=== PATIENT | male | born 1940 | race Caucasian/White ===

== ENCOUNTER 2016-09-26 14:30 | Outpatient (CLI) | payer MEDICARE, OTHER | END 2016-09-26 14:31 | disposition home or self-care (01) | DX: J20.9 Acute bronchitis, unspecified (principal); R06.09 Other forms of dyspnea ==

== ENCOUNTER 2016-10-15 10:19 | Outpatient (CLI) | payer MEDICARE, OTHER | END 2016-10-15 10:20 | disposition home or self-care (01) | DX: R06.09 Other forms of dyspnea (principal) ==

== ENCOUNTER 2017-03-23 08:17 | Outpatient (CLI) | payer MEDICARE, OTHER ==
[2017-03-23 09:09] LABS: BASOPHILS # (AUTO) 0.1 10^3/uL (0.0-0.1); BASOPHILS % (AUTO) 1.3 %; EOSINOPHILS # (AUTO) 0.2 10^3/uL (0.0-0.7); EOSINOPHILS % (AUTO) 3.6 %; HCT - HEMATOCRIT 29.8 % (42.0-52.0); HGB - HEMOGLOBIN 9.8 g/dL (14.0-18.0); LYMPHOCYTES # (AUTO) 1.5 10^3/uL (1.5-3.5); LYMPHOCYTES % (AUTO) 27.5 %; MEAN CORPUSCULAR HEMOGLOBIN 31.9 pg (27.0-31.0); MEAN CORPUSCULAR HGB CONC 32.8 g/dL (32.0-36.0); MEAN CORPUSCULAR VOLUME 97.4 fL (80.0-94.0); MEAN PLATELET VOLUME 7.6 fL (7.4-11.4); MONOCYTES # (AUTO) 0.5 10^3/uL (0.0-1.0); MONOCYTES % (AUTO) 8.5 %; NEUTROPHILS # (AUTO) 3.1 10^3/uL (1.5-6.6); NEUTROPHILS % (AUTO) 59.1 %; RED BLOOD COUNT 3.05 10^6/uL (4.70-6.10); RED CELL DISTRIBUTION WIDTH 14.2 % (12.0-15.0); UNCORRECTED WHITE BLOOD COUNT 5.3 x10^3/uL; WHITE BLOOD COUNT 5.3 x10^3/uL (4.8-10.8)
[2017-03-23 09:22] LABS: CALCIUM 8.7 mg/dL (8.5-10.3); CREATININE 0.9 mg/dL (0.6-1.2); POTASSIUM 3.7 mmol/L (3.5-5.0)
== END 2017-03-23 08:18 | disposition home or self-care (01) ==
LOC: LAB 08:17
PROVIDERS: ATTEND Family Medicine
DX: M12.851 Other specific arthropathies, not elsewhere classified, right hip (principal)
CPT/HCPCS: 36415; 80048; 85025; 87640

== ENCOUNTER 2017-04-11 19:15 | Emergency (ER) | payer MEDICARE, OTHER ==
[2017-04-11] MEDS ORDERED: SODIUM CHLORIDE 0.9% 1,000 ML IV ONE (19:56)
[2017-04-11 20:14] LABS: BILIRUBIN,URINE NEGATIVE (NEGATIVE); UA w/ MICROSCOPIC CHARGE YES
[2017-04-11 20:19] LABS: WBC,URINE >25 /HPF (0-3)
[2017-04-11 20:20] LABS: UR CULTURE IF IND INDICATED
[2017-04-11] MEDS ORDERED: cefTRIAXone 1 GM VIAL IVP STA (20:25)
--- NOTE | 2017-04-11 20:27 | ED Physician Documentation ---
History of Present Illness - Stated complaint Stated Complaint: MALE - Chief complaint Chief Complaint: UTI - History obtained from History obtained from: Patient, Family - History of Present Illness Timing: Today Pain level max: 0 Pain level now: 0 Improved by: nothing Worsened by: nothing - Additonal information Additional information: feeling tired today. States he urinated dark urine, painful today. Has felt warm at home. He is not currently undergoing any chemotherapy, but did have a recent iron infusion. Has a history of mixed small and large cell lymphoma. Review of Systems Constitutional: denies: Chills, Myalgias Nose: denies: Rhinorrhea / runny nose, Congestion Respiratory: denies: Cough GI: denies: Nausea, Vomiting, Diarrhea Skin: denies: Rash Musculoskeletal: denies: Neck pain, Back pain Neurologic: denies: Focal weakness, Numbness, Headache PD PAST MEDICAL HISTORY - Past Medical History Cardiovascular: Hypertension, High cholesterol, Atrial fibrillation Respiratory: None Neuro: None Endocrine/Autoimmune: None GI: GERD, Diverticulitis : None HEENT: None Psych: None Musculoskeletal: Chronic back pain, Other Derm: None - Past Surgical History Past Surgical History: Yes General: Cholecystectomy Ortho: Arthroscopic surgery Cardiovascular: Other Derm: Skin cancer surgery, Other - Present Medications Home Medications: Ambulatory Orders Medication Instructions Recorded Confirmed Acyclovir 400 mg ORAL DAILY 03/14/16 04/11/17 Rivaroxaban [Xarelto] 20 mg PO DAILY 03/18/16 04/11/17 Amiodarone [Pacerone] 200 mg PO BID tablet 06/05/16 04/03/17 Cephalexin [Keflex] 500 mg PO Q6H #40 capsule 04/11/17 Hydrochlorothiazide 25 mg ORAL DAILY 04/11/17 04/11/17 - Allergies Allergies/Adverse Reactions: Allergies Allergy/AdvReac Type Severity Reaction Status Date / Time morphine AdvReac Hallucinati Verified 04/11/17 19:24 ons - Social History Does the pt smoke?: No Smoking Status: Never smoker Does the pt drink ETOH?: Yes Does the pt have substance abuse?: No - Immunizations Immunizations are current?: No - POLST Patient has POLST: Yes PD ED PE NORMAL - Vitals Vital signs reviewed: Yes - General General: Alert and oriented X 3, No acute distress - HEENT HEENT: Moist mucous membranes, Pharynx benign - Neck Neck: Supple, no meningeal sign - Cardiac Cardiac: RRR - Respiratory Respiratory: No respiratory distress, Clear bilaterally - Abdomen Abdomen: Soft, Non tender, Non distended - Back Back: No CVA TTP, No spinal TTP - Derm Derm: Warm and dry - Neuro Neuro: Alert and oriented X 3 - Psych Psych: Normal mood, Normal affect Results - Vitals Vitals: Vital Signs - 24 hr 04/11/17 04/11/17 04/11/17 19:20 20:38 21:38 Temperature 38.1 C H 37.2 C Heart Rate 77 69 66 Respiratory 18 16 16 Rate Blood Pressure 125/61 108/59 L 119/63 O2 Saturation 96 95 94 Oxygen O2 Source Room air - Labs Labs: Laboratory Tests 04/11/17 04/11/17 04/11/17 20:04 20:23 20:23 WBC 15.5 H RBC 3.35 L Hgb 10.9 L Hct 33.1 L MCV 98.7 H MCH 32.4 H MCHC 32.8 RDW 14.6 Plt Count 240 MPV 8.8 Neut # 12.9 H Lymph # 1.2 L [place] # 1.4 H Eos # 0.0 Baso # 0.1 Absolute Nucleated RBC 0.01 Nucleated RBCs 0.1 Sodium 134 L Potassium 3.9 Chloride 100 L Carbon Dioxide 27 Anion Gap 7.0 BUN 25 H Creatinine 0.9 Estimated GFR (MDRD) 82 L Glucose 121 H Lactic Acid Calcium 8.8 Total Bilirubin 0.8 AST 32 ALT 31 Alkaline Phosphatase 82 Total Protein 6.4 L Albumin 3.5 Globulin 2.9 Albumin/Globulin Ratio 1.2 Lipase 11 L Urine Color BROWN Urine Clarity TURBID Urine pH 7.0 Ur Specific [place] 1.020 Urine Protein 100 H Urine Glucose (UA) NEGATIVE Urine Ketones TRACE Urine Occult Blood LARGE H Urine Nitrite POSITIVE H Urine Bilirubin NEGATIVE Urine Urobilinogen 1 (NORMAL) Ur Leukocyte Esterase LARGE H Urine RBC TNTC H Urine WBC >25 H Ur Squamous Epith Cells RARE Squamous Urine Bacteria Many H Ur Microscopic Review INDICATED Urine Culture Comments INDICATED 04/11/17 20:23 WBC RBC Hgb Hct MCV MCH MCHC RDW Plt Count MPV Neut # Lymph # [place] # Eos # Baso # Absolute Nucleated RBC Nucleated RBCs Sodium Potassium Chloride Carbon Dioxide Anion Gap BUN Creatinine Estimated GFR (MDRD) Glucose Lactic Acid 1.3 Calcium Total Bilirubin AST ALT Alkaline Phosphatase Total Protein Albumin Globulin Albumin/Globulin Ratio Lipase Urine Color Urine Clarity Urine pH Ur Specific [place] Urine Protein Urine Glucose (UA) Urine Ketones Urine Occult Blood Urine Nitrite Urine Bilirubin Urine Urobilinogen Ur Leukocyte Esterase Urine RBC Urine WBC Ur Squamous Epith Cells Urine Bacteria Ur Microscopic Review Urine Culture Comments PD MEDICAL DECISION MAKING - ED course Complexity details: reviewed results, re-evaluated patient, considered differential, d/w patient, d/w family ED course: Patient is a 76-year-old male who presents to the emergency department with dysuria, dark urine and found to have UTI. Given Rocephin IV and will place on oral antibiotics for home. Due to the multiple black box warnings on ciprofloxacin, will avoid this at this time and treated with Keflex. He is well -appearing, nontoxic. Not septic. Patient and are comfortable going home at this time and will return if they worsen. Patient and family counseled regarding signs and symptoms for which I believe and urgent re-evaluation would be necessary. Patient with good understanding of and agreement to plan and is comfortable going home at this time This document was made in part using voice recognition software. While efforts are made to proofread this document, sound alike and grammatical errors may occur. Departure - Departure Disposition: 01 Home, Self Care Clinical Impression: UTI (urinary tract infection) Qualifiers: Urinary tract infection type: acute cystitis Hematuria presence: without hematuria Qualified Code(s): N30.00 - Acute cystitis without hematuria Condition: Good Instructions: ED UTI Cystitis Male Follow-Up: Matt Euceda MD [Primary Care Provider] - Within 3 Days Prescriptions: Cephalexin [Keflex] 500 mg PO Q6H #40 capsule Comments: Take all antibiotics until gone. Return if you worsen. Discharge Date/Time: 04/11/17 21:38
[2017-04-11] MEDS ORDERED: cefTRIAXone 1 GM VIAL ONE (20:31)
[2017-04-11 20:37] LABS: BASOPHILS # (AUTO) 0.1 10^3/uL (0.0-0.1); BASOPHILS % (AUTO) 0.4 %; EOSINOPHILS % (AUTO) 0.2 %; HCT - HEMATOCRIT 33.1 % (42.0-52.0); HGB - HEMOGLOBIN 10.9 g/dL (14.0-18.0); LYMPHOCYTES # (AUTO) 1.2 10^3/uL (1.5-3.5); LYMPHOCYTES % (AUTO) 7.6 %; MEAN CORPUSCULAR HEMOGLOBIN 32.4 pg (27.0-31.0); MEAN CORPUSCULAR HGB CONC 32.8 g/dL (32.0-36.0); MEAN CORPUSCULAR VOLUME 98.7 fL (80.0-94.0); MEAN PLATELET VOLUME 8.8 fL (7.4-11.4); MONOCYTES # (AUTO) 1.4 10^3/uL (0.0-1.0); MONOCYTES % (AUTO) 8.9 %; NEUTROPHILS # (AUTO) 12.9 10^3/uL (1.5-6.6); NEUTROPHILS % (AUTO) 82.9 %; NUCLEATED RED BLOOD CELLS AUTO 0.1 /100WBC; RED BLOOD COUNT 3.35 10^6/uL (4.70-6.10); RED CELL DISTRIBUTION WIDTH 14.6 % (12.0-15.0); UNCORRECTED WHITE BLOOD COUNT 15.5 x10^3/uL; WHITE BLOOD COUNT 15.5 x10^3/uL (4.8-10.8)
[2017-04-11 20:51] LABS: ALBUMIN/GLOBULIN RATIO 1.2 (1.0-2.2); BILIRUBIN,TOTAL 0.8 mg/dL (0.2-1.0); CALCIUM 8.8 mg/dL (8.5-10.3); CREATININE 0.9 mg/dL (0.6-1.2); POTASSIUM 3.9 mmol/L (3.5-5.0); TOTAL PROTEIN 6.4 g/dL (6.7-8.2)
[2017-04-11 21:42] VITALS: BP 119/63
== END 2017-04-11 21:38 | disposition home or self-care (01) ==
LOC: ED 19:15
DX: N30.00 Acute cystitis without hematuria (principal); C83.30 Diffuse large B-cell lymphoma, unspecified site; C83.00 Small cell B-cell lymphoma, unspecified site; I10 Essential (primary) hypertension; E78.00 Pure hypercholesterolemia, unspecified; I48.91 Unspecified atrial fibrillation; K21.9 Gastro-esophageal reflux disease without esophagitis; Z79.01 Long term (current) use of anticoagulants
CPT/HCPCS: 36415; 80053; 81001; 81003; 83605; 83690; 85025; 87077; 87086; 96374; 99283

== ENCOUNTER 2017-05-01 10:00 | Outpatient (CLI) | payer MEDICARE, OTHER | END 2017-05-01 10:01 | disposition home or self-care (01) | LOC: LAB 10:00 | PROVIDERS: ATTEND Family Medicine | DX: Z87.898 Personal history of other specified conditions (principal); D64.9 Anemia, unspecified | CPT/HCPCS: 36415; 84443 ==

== ENCOUNTER 2017-06-07 23:27 | Emergency (ER) | payer MEDICARE, OTHER ==
--- NOTE | 2017-06-08 00:09 | ED Physician Documentation ---
History of Present Illness - Stated complaint Stated Complaint: L ARM PX - Chief complaint Chief Complaint: Ext Problem - History obtained from History obtained from: Patient, Family - History of Present Illness Timing: How many hours ago (1) Pain level max: 0 Pain level now: 0 - Additonal information Additional information: Patient was trying to change his PICC line dressing at home, accidentally cut the end of the catheter off, here to have the PICC line removed. Is scheduled to have a new one placed on Saturday. Review of Systems Constitutional: denies: Fever Cardiac: denies: Chest pain / pressure Skin: denies: Rash PD PAST MEDICAL HISTORY - Past Medical History Cardiovascular: Hypertension, High cholesterol, Atrial fibrillation Respiratory: None Neuro: None Endocrine/Autoimmune: None GI: GERD, Diverticulitis : None HEENT: None Psych: None Musculoskeletal: Chronic back pain, Other Derm: None - Past Surgical History Past Surgical History: Yes General: Cholecystectomy Ortho: Arthroscopic surgery Cardiovascular: Other Derm: Skin cancer surgery, Other - Present Medications Home Medications: Ambulatory Orders Medication Instructions Recorded Confirmed Acyclovir 400 mg ORAL DAILY 03/14/16 04/11/17 Amiodarone [Pacerone] 200 mg PO BID tablet 06/05/16 04/03/17 Tramadol HCl [Tramadol HCl ER] 200 mg PO DAILY 06/07/17 06/07/17 - Allergies Allergies/Adverse Reactions: Allergies Allergy/AdvReac Type Severity Reaction Status Date / Time morphine AdvReac Hallucinati Verified 06/07/17 23:39 ons - Social History Does the pt smoke?: No Smoking Status: Never smoker Does the pt drink ETOH?: Yes Does the pt have substance abuse?: No - Immunizations Immunizations are current?: No - POLST Patient has POLST: Yes PD ED PE NORMAL - Vitals Vital signs reviewed: Yes - General General: Alert and oriented X 3, No acute distress - Derm Derm: Warm and dry - Extremities Extremities: Other (PICC line in place in the left upper extremity) - Neuro Neuro: Alert and oriented X 3 - Psych Psych: Normal mood, Normal affect Results - Vitals Vitals: Vital Signs - 24 hr 06/07/17 06/08/17 23:33 00:17 Temperature 36.5 C Heart Rate 58 L 58 L Respiratory 16 16 Rate Blood Pressure 154/80 H 130/68 O2 Saturation 98 96 Oxygen O2 Source Room air PD MEDICAL DECISION MAKING - ED course Complexity details: re-evaluated patient, considered differential, d/w patient, d/w family ED course: PICC line removed by the nurse. Patient tolerated well. No complications. Will follow up with his doctor on Saturday for replacement of the PICC line. Patient and family counseled regarding signs and symptoms for which I believe and urgent re-evaluation would be necessary. Patient with good understanding of and agreement to plan and is comfortable going home at this time This document was made in part using voice recognition software. While efforts are made to proofread this document, sound alike and grammatical errors may occur. Departure - Departure Disposition: , Self Care Clinical Impression: PIC line (peripherally inserted central catheter) removal Condition: Good Follow-Up: Matt Euecda MD [Primary Care Provider] - As Needed Comments: Follow-up on Saturday as scheduled to have your PICC line replaced. Return if you worsen Your blood pressure was elevated today on check in to the emergency department. This does not mean that you have hypertension, it is a common phenomenon to check into the emergency department and have elevated blood pressure. I recommend that you see your primary care physician within the week to have it rechecked when you're feeling better. Discharge Date/Time: 06/08/17 00:20
[2017-06-08 00:18] VITALS: BP 130/68
== END 2017-06-08 00:20 | disposition home or self-care (01) ==
LOC: ED 23:27
DX: Z45.2 Encounter for adjustment and management of vascular access device (principal); I10 Essential (primary) hypertension
CPT/HCPCS: 99282; 99283

== ENCOUNTER 2017-07-28 22:43 | Outpatient (CLI) | payer MEDICARE, OTHER | END 2017-07-28 22:44 | disposition critical access hospital (66) | LOC: EMS 22:43 | PROVIDERS: ATTEND Surgery | DX: R53.1 Weakness (principal) | CPT/HCPCS: A0425; A0429 ==

== ENCOUNTER 2017-07-28 22:47 | Emergency (ER) | payer MEDICARE, OTHER ==
[2017-07-28] MEDS ORDERED: SODIUM CHLORIDE 0.9% 1,000 ML IV ONE (23:05)
[2017-07-29 00:08] LABS: EOSINOPHILS % (AUTO) 0.4 %; HCT - HEMATOCRIT 37.5 % (42.0-52.0); HGB - HEMOGLOBIN 12.8 g/dL (14.0-18.0); LYMPHOCYTES # (AUTO) 0.1 10^3/uL (1.5-3.5); LYMPHOCYTES % (AUTO) 6.5 %; MEAN CORPUSCULAR HEMOGLOBIN 30.7 pg (27.0-31.0); MEAN CORPUSCULAR HGB CONC 34.1 g/dL (32.0-36.0); MEAN PLATELET VOLUME 8.5 fL (7.4-11.4); MONOCYTES # (AUTO) 0.1 10^3/uL (0.0-1.0); MONOCYTES % (AUTO) 7.5 %; NEUTROPHILS # (AUTO) 0.8 10^3/uL (1.5-6.6); NEUTROPHILS % (AUTO) 85.6 %; NUCLEATED RED BLOOD CELLS AUTO 1.9 /100WBC; RED BLOOD COUNT 4.16 10^6/uL (4.70-6.10); RED CELL DISTRIBUTION WIDTH 17.1 % (12.0-15.0); UNCORRECTED WHITE BLOOD COUNT 0.9 x10^3/uL
[2017-07-29 00:12] LABS: ALBUMIN/GLOBULIN RATIO 1.1 (1.0-2.2); CALCIUM 8.4 mg/dL (8.5-10.3); CREATININE 0.7 mg/dL (0.6-1.2); POTASSIUM 4.2 mmol/L (3.5-5.0); TOTAL PROTEIN 5.7 g/dL (6.7-8.2)
[2017-07-29 00:20] LABS: WHITE BLOOD COUNT 0.9 x10^3/uL (4.8-10.8)
--- NOTE | 2017-07-29 00:28 | ED Physician Documentation ---
History of Present Illness - Stated complaint Stated Complaint: WEAKNESS - Chief complaint Chief Complaint: General - History obtained from History obtained from: Patient, Family - Additonal information Additional information: The patient is a 76-year-old male with a history of esophageal cancer, status post 6 weeks of chemotherapy and radiation therapy, who presents with progressive weakness that became worse tonight. He became too weak to ambulate from the couch to the restroom. He reports associated shortness of breath and lightheadedness. He denies fever, chest pain, cough, nausea, vomiting, or dysuria. His last chemotherapy was 5 days ago, and his last radiation therapy was 3 days ago. In addition to esophageal cancer, his past medical history is significant for recurrent atrial fibrillation. He had previously been anticoagulated with Xarelto, but that was discontinued because of GI bleeding, presumably associated with the esophageal cancer. He reports that for the past year he has not been in atrial fibrillation until today. Review of Systems Constitutional: reports: Fatigue. denies: Fever Ears: denies: Tinnitus/ringing Nose: denies: Congestion Throat: denies: Sore throat Cardiac: denies: Chest pain / pressure, Palpitations Respiratory: reports: Dyspnea (With activity.). denies: Cough GI: denies: Abdominal Pain, Nausea, Vomiting, Diarrhea : denies: Dysuria Skin: reports: Rash (Radiation rash on his back.) Musculoskeletal: denies: Back pain, Extremity pain, Extremity swelling Neurologic: reports: Generalized weakness. denies: Focal weakness, Numbness, Altered mental status, Headache Immunocompromised: reports: Immunocompromised, Chemotherapy PD PAST MEDICAL HISTORY - Past Medical History Past Medical History: Yes Cardiovascular: Hypertension, High cholesterol, Atrial fibrillation Respiratory: None Neuro: None Endocrine/Autoimmune: None GI: GERD, Diverticulitis, Other (Esophageal cancer) : None HEENT: None Psych: None Musculoskeletal: Chronic back pain, Other Derm: None Other Past Medical History: esophogeal CA - Past Surgical History Past Surgical History: Yes General: Cholecystectomy Ortho: Arthroscopic surgery Cardiovascular: Other Derm: Skin cancer surgery, Other - Present Medications Home Medications: Ambulatory Orders Medication Instructions Recorded Confirmed Acyclovir 400 mg ORAL DAILY 03/14/16 07/28/17 Amiodarone [Pacerone] 200 mg PO BID tablet 06/05/16 07/28/17 Tramadol HCl [Tramadol HCl ER] 200 mg PO DAILY 06/07/17 07/28/17 Cholecalciferol (Vitamin D3) 1 tab PO DAILY 07/28/17 07/28/17 [Vitamin D3] Cyanocobalamin (Vitamin B-12) 1 tab PO DAILY 07/28/17 07/28/17 [Vitamin B-12] Dexamethasone 1 tab PO BID 07/28/17 07/28/17 Multivitamin/Iron/Folic Acid 1 tab PO DAILY 07/28/17 07/28/17 [Centrum Adults Tablet] - Allergies Allergies/Adverse Reactions: Allergies Allergy/AdvReac Type Severity Reaction Status Date / Time morphine AdvReac Hallucinati Verified 07/28/17 22:54 ons - Living Situation Living Situation: reports: With spouse/s.o. Living Arrangement: reports: At home - Social History Does the pt smoke?: No Smoking Status: Never smoker Does the pt drink ETOH?: Yes Does the pt have substance abuse?: No - Immunizations Immunizations are current?: No - POLST Patient has POLST: Yes PD ED PE NORMAL - Vitals Vital signs reviewed: Yes (Blood pressure on low end of normal range.) - General General: Alert and oriented X 3, Well developed/nourished - HEENT HEENT: Atraumatic, EOMI, Moist mucous membranes, Pharynx benign - Neck Neck: Supple, no meningeal sign, No adenopathy, No JVD - Cardiac Cardiac: No murmur, Other (Regular rate, irregularly irregular rhythm.) - Respiratory Respiratory: No respiratory distress, Clear bilaterally - Abdomen Abdomen: Soft, Non tender - Back Back: No CVA TTP - Derm Derm: Other (Rash involving the midthoracic back, consistent with radiation therapy.) - Extremities Extremities: No edema, No calf tenderness / cord - Neuro Neuro: Alert and oriented X 3, No motor deficit, No sensory deficit Results - Vitals Vitals: Vital Signs - 24 hr 07/28/17 07/29/17 07/29/17 22:51 00:35 03:30 Temperature 36.8 C Heart Rate 91 90 80 Respiratory 14 18 18 Rate Blood Pressure 93/62 95/57 L 93/62 O2 Saturation 98 98 97 07/29/17 04:30 Temperature 36.5 C Heart Rate 82 Respiratory 18 Rate Blood Pressure 107/69 O2 Saturation 97 Oxygen O2 Source Room air - EKG (time done) 23:13 Rate: Rate (enter#) (99) Rhythm: Atrial fibrillation [place]: Normal Intervals: Prolonged QT QRS: Normal Ischemia: Non specific changes Compare to prior EKG: Unchanged from prior EKG Computer interpretation: Agree with computer - Labs Labs: Laboratory Tests 07/28/17 07/28/17 07/28/17 23:50 23:50 23:50 WBC 0.9 L* RBC 4.16 L Hgb 12.8 L Hct 37.5 L MCV 90.0 MCH 30.7 MCHC 34.1 RDW 17.1 H Plt Count 114 L MPV 8.5 Neut # 0.8 L Lymph # 0.1 L Humphre[place] # 0.1 Eos # 0.0 Baso # 0.0 Absolute Nucleated RBC 0.02 Nucleated RBC % 1.9 Manual Slide Review Indicated Platelet Estimate DECREASED (<130,000) Platelet Morphology NORMAL JUVE RBC Morph Micro Appear NORMAL APPEARANCE Sodium 131 L Potassium 4.2 Chloride 95 L Carbon Dioxide 27 Anion Gap 9.0 BUN 26 H Creatinine 0.7 Estimated GFR (MDRD) 109 Glucose 126 H Lactic Acid 1.3 Calcium 8.4 L Total Bilirubin 1.0 AST 43 H ALT 107 H Alkaline Phosphatase 78 Total Protein 5.7 L Albumin 3.0 L Globulin 2.7 Albumin/Globulin Ratio 1.1 Lipase 12 L PD MEDICAL DECISION MAKING - ED course Complexity details: reviewed old records, reviewed results, re-evaluated patient , considered differential, d/w patient, d/w family, d/w clinical application consultant ED course: The patient's presentation is significant for generalized weakness following chemotherapy and radiation therapy for esophageal cancer. He has dehydration, which is likely result of poor oral intake due to pain when swallowing. In addition he is neutropenic with a white count of 0.9, with a neutrophil count of 0.8. His chemistry panel is significant for an elevated BUN to creatinine ratio, with a BUN of 26, and creatinine 0.7. He has recurrent atrial fibrillation, with a controlled rate in the 80-90 range. Treatment in the emergency department included administration of normal saline 1 L IV bolus, followed by 250 mL/hr. After fluid administration the patient ambulated to the restroom with the assistance of a walker, but was still not able to produce a urine sample. He was then too weak to ambulate the fifteen feet to his room, and required wheelchair assistance. I discussed his condition with Dr. Titus, distribution field engineer for the patient's oncologist , Dr. Novak. He agrees that the patient should be hospitalized. I subsequently discussed his condition with Dr. Hummel, the hospitalist at [facility], and he will accept the patient in transfer. Transfer forms were completed. The patient is being transferred by S ambulance. Departure - Departure Disposition: 02 Transfer Acute Care Hosp Clinical Impression: Dehydration, Atrial fibrillation with controlled ventricular rate Neutropenia Qualifiers: Neutropenia type: secondary to cancer chemotherapy Qualified Code(s): D70.1 - Agranulocytosis secondary to cancer chemotherapy Esophageal cancer Qualifiers: Malignant neoplasm of esophagus location: unspecified location Qualified Code(s ): C15.9 - Malignant neoplasm of esophagus, unspecified Discharge Date/Time: 07/29/17 05:00
[2017-07-29 00:57] LABS: PLATELET ESTIMATE, MANUAL DECREASED (<130,000) (NORMAL); PLATELET MORPHOLOGY NORMAL APP (NORMAL)
[2017-07-29] MEDS ORDERED: SODIUM CHLORIDE 0.9% 1,000 ML IV ONE (02:11)
[2017-07-29 05:10] VITALS: BP 107/69
== END 2017-07-29 05:00 | disposition short-term general hospital (02) ==
LOC: EDUNIT# → SUPCPDRO 22:47 → ED 22:47
DX: E86.0 Dehydration (principal); I48.91 Unspecified atrial fibrillation; D70.1 Agranulocytosis secondary to cancer chemotherapy; C15.9 Malignant neoplasm of esophagus, unspecified; I10 Essential (primary) hypertension; E78.00 Pure hypercholesterolemia, unspecified; Z92.3 Personal history of irradiation
CPT/HCPCS: 36415; 80053; 80306; 81001; 81003; 83605; 83690; 85025; 87086; 93005; 96360; 99284; 99285

== ENCOUNTER 2017-07-29 05:00 | Outpatient (CLI) | payer MEDICARE, OTHER | END 2017-07-29 05:01 | disposition short-term general hospital (02) | LOC: EMS 05:00 | PROVIDERS: ATTEND Surgery | DX: R53.83 Other fatigue (principal); E86.0 Dehydration; D70.9 Neutropenia, unspecified; I48.91 Unspecified atrial fibrillation | CPT/HCPCS: A0425; A0426 ==

== ENCOUNTER 2017-09-16 08:54 | Outpatient (CLI) | payer MEDICARE, OTHER ==
[2017-09-16 09:43] LABS: BASOPHILS % (AUTO) 0.7 %; EOSINOPHILS % (AUTO) 10.2 %; HGB - HEMOGLOBIN 12.7 g/dL (14.0-18.0); LYMPHOCYTES % (AUTO) 22.8 %; MEAN CORPUSCULAR HEMOGLOBIN 34.4 pg (27.0-31.0); MEAN CORPUSCULAR HGB CONC 33.5 g/dL (32.0-36.0); MEAN CORPUSCULAR VOLUME 102.8 fL (80.0-94.0); MEAN PLATELET VOLUME 8.1 fL (7.4-11.4); MONOCYTES % (AUTO) 8.5 %; NEUTROPHILS % (AUTO) 57.8 %; PLT - PLATELET COUNT 189 10^3/uL (130-450); RED BLOOD COUNT 3.69 10^6/uL (4.70-6.10); RED CELL DISTRIBUTION WIDTH 17.8 % (12.0-15.0); WHITE BLOOD COUNT 9.8 x10^3/uL (4.8-10.8)
[2017-09-16 10:07] LABS: ABNORMAL LYMPHS % (MANUAL) 0 %
[2017-09-16 10:10] LABS: BAND NEUTROPHILS % (MANUAL) 14 %; EOSINOPHILS # (MANUAL) 0.9 10^3/uL (0-0.7); LYMPHOCYTES # (MANUAL) 2.1 10^3/uL (1.5-3.5); LYMPHOCYTES % (MANUAL) 21 %; MONOCYTES # (MANUAL) 0.7 10^3/uL (0.0-1.0); MYELOCYTES % (MANUAL) 1 %; NEUTROPHILS # (MANUAL) 6.1 10^3/uL (1.5-6.6); NEUTROPHILS % (MANUAL) 48 %
[2017-09-16 10:12] LABS: DIFFERENTIAL COMMENT MANUAL DIFFERENTIAL; PLATELET ESTIMATE, MANUAL NORMAL (130-450,000) (NORMAL); PLATELET MORPHOLOGY NORMAL APPEARANCE (NORMAL)
== END 2017-09-16 08:55 | disposition home or self-care (01) ==
LOC: LAB 08:54
PROVIDERS: ATTEND Physician Assistant Medical
DX: E61.1 Iron deficiency (principal)
CPT/HCPCS: 36415; 82728; 85025

== ENCOUNTER 2017-09-20 10:47 | Outpatient (CLI) | payer MEDICARE, OTHER | END 2017-09-20 10:48 | disposition critical access hospital (66) | LOC: EMS 10:47 | PROVIDERS: ATTEND Surgery | DX: R06.02 Shortness of breath (principal) | CPT/HCPCS: A0425; A0427 ==

== ENCOUNTER 2017-09-20 11:05 | Emergency (ER) | payer MEDICARE, OTHER ==
--- NOTE | 2017-09-20 12:52 | ED Physician Documentation ---
PD HPI DYSPNEA - Stated complaint Stated Complaint: SOA - Chief complaint Chief Complaint: Resp - History obtained from History obtained from: Patient, Family () - History of Present Illness Timing - onset: Other (He has a remote history of Non Hodgkin lymphoma and in May was diagnosed with throat cancer, he had a 6 week course of radiation and chemotherapy at the [facility] [place] and has been off of those things for the last 2 months. The chemotherapy was complicated by poor oral intake for which he was feeding tube dependent for a while and anemia for which she had a couple blood transfusions. He notes that for the past week he has had progressive increasing shortness of breath on exertion which is not positional and is associated with productive cough. There is no pedal edema. He says he gets short of breath just walking to the bathroom which is only about 20 feet. There is no fever and no chest pain with this. He is anticoagulated for chronic atrial fibrillation on Xarelto.) Review of Systems Ten Systems: 10 systems reviewed and negative Constitutional: reports: Fatigue. denies: Fever, Chills Ears: denies: Ear pain Nose: denies: Rhinorrhea / runny nose, Congestion Cardiac: denies: Chest pain / pressure, Palpitations, Pedal edema, Calf pain Respiratory: reports: Dyspnea, Cough. denies: Hemoptysis, Wheezing PD PAST MEDICAL HISTORY - Past Medical History Past Medical History: Yes Cardiovascular: Hypertension, High cholesterol, Atrial fibrillation Respiratory: None Neuro: None Endocrine/Autoimmune: None GI: GERD, Diverticulitis, Other : None HEENT: None Psych: None Musculoskeletal: Chronic back pain, Other Derm: None - Past Surgical History Past Surgical History: Yes General: Cholecystectomy Ortho: Arthroscopic surgery Cardiovascular: Other Derm: Skin cancer surgery, Other - Present Medications Home Medications: Ambulatory Orders Medication Instructions Recorded Confirmed Acyclovir 400 mg ORAL DAILY 03/14/16 09/20/17 Amiodarone [Pacerone] 200 mg PO BID tablet 06/05/16 09/20/17 Tramadol HCl [Tramadol HCl ER] 200 mg PO DAILY 06/07/17 09/20/17 Cholecalciferol (Vitamin D3) 1 tab PO DAILY 07/28/17 09/20/17 [Vitamin D3] Cyanocobalamin (Vitamin B-12) 1 tab PO DAILY 07/28/17 09/20/17 [Vitamin B-12] Multivitamin/Iron/Folic Acid 1 tab PO DAILY 07/28/17 09/20/17 [Centrum Adults Tablet] Biotin 5,000 mcg PO DAILY 09/20/17 09/20/17 Docusate Sodium 100 mg PO DAILY 09/20/17 09/20/17 Doxycycline Hyclate 100 mg PO BID #14 tablet 09/20/17 Megestrol Acetate 40 mg PO DAILY 09/20/17 09/20/17 Pantoprazole [Protonix] 40 mg PO BID 09/20/17 09/20/17 Rivaroxaban [Xarelto] 20 mg PO BID 09/20/17 09/20/17 - Allergies Allergies/Adverse Reactions: Allergies Allergy/AdvReac Type Severity Reaction Status Date / Time morphine AdvReac Hallucinati Verified 07/28/17 22:54 ons - Social History Does the pt smoke?: No Smoking Status: Never smoker Does the pt drink ETOH?: Yes Does the pt have substance abuse?: No - Immunizations Immunizations are current?: No - POLST Patient has POLST: Yes PD ED PE NORMAL - Vitals Vital signs reviewed: Yes - General General: Alert and oriented X 3, No acute distress - HEENT HEENT: PERRL, EOMI - Neck Neck: Supple, no meningeal sign, No bony TTP - Cardiac Cardiac: RRR, No murmur - Respiratory Respiratory: No respiratory distress, Other (Mild crackles throughout and slightly diminished at the bases without focal findings.) - Abdomen Abdomen: Soft, Non tender - Derm Derm: Normal color, Warm and dry - Extremities Extremities: No edema, No calf tenderness / cord - Neuro Neuro: Alert and oriented X 3, Normal speech - Psych Psych: Normal mood, Normal affect Results - Vitals Vitals: Vital Signs - 24 hr 09/20/17 09/20/17 09/20/17 11:11 13:13 13:14 Temperature 36.5 C Heart Rate 86 83 90 Respiratory 18 20 29 H Rate Blood Pressure 115/82 H 110/75 110/75 O2 Saturation 98 96 96 Oxygen O2 Source Room air - EKG (time done) 1253 Rate: Rate (enter#) (95) Rhythm: Atrial fibrillation [place]: Normal QRS: Normal Ischemia: Normal ST segments Computer interpretation: Agree with computer - Labs Labs: Laboratory Tests 09/20/17 09/20/17 09/20/17 12:40 12:40 12:40 WBC 9.8 RBC 3.72 L Hgb 13.0 L Hct 38.0 L MCV 102.0 H MCH 34.8 H MCHC 34.1 RDW 17.4 H Plt Count 235 MPV 7.8 Sodium 135 Potassium 4.0 Chloride 102 Carbon Dioxide 24 Anion Gap 9.0 BUN 23 H Creatinine 0.7 Estimated GFR (MDRD) 109 Glucose 135 H Calcium 8.5 Total Bilirubin 0.3 AST 44 H ALT 28 Alkaline Phosphatase 95 Troponin I < 0.04 B-Natriuretic Peptide Total Protein 6.7 Albumin 2.7 L Globulin 4.0 Albumin/Globulin Ratio 0.7 L Lipase 17 L 09/20/17 12:50 WBC RBC Hgb Hct MCV MCH MCHC RDW Plt Count MPV Sodium Potassium Chloride Carbon Dioxide Anion Gap BUN Creatinine Estimated GFR (MDRD) Glucose Calcium Total Bilirubin AST ALT Alkaline Phosphatase Troponin I B-Natriuretic Peptide 89 Total Protein Albumin Globulin Albumin/Globulin Ratio Lipase - Rads (name of study) 2v chest Radiology: EMP read contemporaneously (Perihilar edema with right middle lobe infiltrate) PD MEDICAL DECISION MAKING - ED course ED course: 76-year-old gentleman with recent but not active chemotherapy presents with breathlessness and productive cough. PE is unlikely given the clinical circumstances anticoagulated status. There is no evidence of acute heart issue or heart failure, he does have evidence of pneumonia. Doxycycline chosen because of lack of interactions with amiodarone. Departure - Departure Disposition: 01 Home, Self Care Clinical Impression: Pneumonia Qualifiers: Pneumonia type: due to unspecified organism Laterality: right Lung location: middle lobe of lung Qualified Code(s): J18.1 - Lobar pneumonia, unspecified organism Condition: Good Record reviewed to determine appropriate education?: Yes Instructions: Pneumonia Dc Prescriptions: Doxycycline Hyclate 100 mg PO BID #14 tablet Comments: Do not take the antibiotic within 1 hour of any vitamin supplements. Especially calcium supplements. Call your doctor to arrange a follow-up appointment, make the next available appointment. In the interim, return anytime if worse or if new symptoms develop.
[2017-09-20 13:00] LABS: ALBUMIN 2.7 g/dL (3.2-5.5); ALBUMIN/GLOBULIN RATIO 0.7 (1.0-2.2); BILIRUBIN,TOTAL 0.3 mg/dL (0.2-1.0); CALCIUM 8.5 mg/dL (8.5-10.3); CREATININE 0.7 mg/dL (0.6-1.2); TOTAL PROTEIN 6.7 g/dL (6.7-8.2)
[2017-09-20 13:19] LABS: BASOPHILS % (AUTO) 0.6 %; EOSINOPHILS % (AUTO) 8.5 %; LYMPHOCYTES % (AUTO) 12.3 %; MEAN CORPUSCULAR HEMOGLOBIN 34.8 pg (27.0-31.0); MEAN CORPUSCULAR HGB CONC 34.1 g/dL (32.0-36.0); MEAN PLATELET VOLUME 7.8 fL (7.4-11.4); MONOCYTES % (AUTO) 8.6 %; PLT - PLATELET COUNT 235 10^3/uL (130-450); RED BLOOD COUNT 3.72 10^6/uL (4.70-6.10); RED CELL DISTRIBUTION WIDTH 17.4 % (12.0-15.0); WHITE BLOOD COUNT 9.8 x10^3/uL (4.8-10.8)
[2017-09-20 13:23] LABS: ABNORMAL LYMPHS % (MANUAL) 0 %; BAND NEUTROPHILS % (MANUAL) 0 %
--- NOTE | 2017-09-20 13:41 | XRAY Report ---
EXAM: CHEST RADIOGRAPHY EXAM DATE: 09/20/2017 01:06 PM. CLINICAL HISTORY: Dyspnea. COMPARISON: 06/04/2016. TECHNIQUE: 2 views. FINDINGS: Lungs/Pleura: Lung volumes are decreased. There are increased bilateral perihilar interstitial densit ies. The right cardiac border is obscured. There is developing density in the right middle lobe on th e lateral image. No pleural effusion. Mediastinum: Heart size is within normal limits. Trachea is midline. Other: None. IMPRESSION: 1. Developing perihilar interstitial densities with a focal process in the right middle lobe. Possibl e perihilar edema and/or right middle lobe pneumonia with airway thickening. [facility] Referring Provider Line: [phone] SITE ID: [id number]
[2017-09-20 13:46] LABS: BASOPHILS # (MANUAL) 0.1 10^3/uL (0-0.1); BASOPHILS % (MANUAL) 1 %; EOSINOPHILS # (MANUAL) 0.1 10^3/uL (0-0.7); LYMPHOCYTES # (MANUAL) 1.9 10^3/uL (1.5-3.5); LYMPHOCYTES % (MANUAL) 19 %; MONOCYTES # (MANUAL) 0.6 10^3/uL (0.0-1.0); NEUTROPHILS # (MANUAL) 7.1 10^3/uL (1.5-6.6); NEUTROPHILS % (MANUAL) 72 %
[2017-09-20 13:48] LABS: MYELOCYTES % (MANUAL) 1 %
[2017-09-20] MEDS ORDERED: DOXYCYCLINE 100 MG TABLET PO STA (14:00)
[2017-09-20 14:08] LABS: DIFFERENTIAL COMMENT MANUAL DIFFERENTIAL; PLATELET ESTIMATE, MANUAL NORMAL (130-450,000) (NORMAL); RBC MORPHOLOGY (MULTIPLE) 1+ ANISOCYTOSIS (NORMAL)
[2017-09-20 14:14] VITALS: BP 116/77
== END 2017-09-20 14:28 | disposition home or self-care (01) ==
LOC: EDUNIT# → ED 11:05
DX: J18.9 Pneumonia, unspecified organism (principal); C14.0 Malignant neoplasm of pharynx, unspecified; Z85.72 Personal history of non-Hodgkin lymphomas; Z86.2 Personal history of diseases of the blood and blood-forming organs and certain disorders involving the immune mechanism; I48.91 Unspecified atrial fibrillation; Z79.01 Long term (current) use of anticoagulants; R94.31 Abnormal electrocardiogram [ECG] [EKG]; I10 Essential (primary) hypertension; E78.00 Pure hypercholesterolemia, unspecified; K21.9 Gastro-esophageal reflux disease without esophagitis
CPT/HCPCS: 36415; 71046; 80053; 83690; 83880; 84484; 85025; 93005; 99283; 99284; A9270

== ENCOUNTER 2017-10-14 08:00 | Outpatient (CLI) | payer MEDICARE, OTHER ==
[2017-10-14 13:51] LABS: BASOPHILS # (AUTO) 0.1 10^3/uL (0.0-0.1); BASOPHILS % (AUTO) 1.3 %; EOSINOPHILS # (AUTO) 0.2 10^3/uL (0.0-0.7); EOSINOPHILS % (AUTO) 2.4 %; HGB - HEMOGLOBIN 13.1 g/dL (14.0-18.0); LYMPHOCYTES # (AUTO) 1.1 10^3/uL (1.5-3.5); MEAN CORPUSCULAR HEMOGLOBIN 34.8 pg (27.0-31.0); MEAN CORPUSCULAR HGB CONC 34.7 g/dL (32.0-36.0); MEAN CORPUSCULAR VOLUME 100.1 fL (80.0-94.0); MONOCYTES # (AUTO) 0.7 10^3/uL (0.0-1.0); MONOCYTES % (AUTO) 9.9 %; NEUTROPHILS # (AUTO) 5.5 10^3/uL (1.5-6.6); NEUTROPHILS % (AUTO) 72.4 %; PLT - PLATELET COUNT 168 10^3/uL (130-450); RED BLOOD COUNT 3.78 10^6/uL (4.70-6.10); RED CELL DISTRIBUTION WIDTH 17.9 % (12.0-15.0); WHITE BLOOD COUNT 7.5 x10^3/uL (4.8-10.8)
== END 2017-10-14 08:01 | disposition home or self-care (01) ==
LOC: LAB.R 08:00
PROVIDERS: ATTEND Family Medicine
DX: C15.9 Malignant neoplasm of esophagus, unspecified (principal); Z87.898 Personal history of other specified conditions
CPT/HCPCS: 36415; 85025

== ENCOUNTER 2017-10-25 12:55 | Outpatient (CLI) | payer MEDICARE, OTHER | END 2017-10-25 12:56 | disposition home or self-care (01) | LOC: DI 12:55 | PROVIDERS: ATTEND Physician Assistant Medical | DX: R06.00 Dyspnea, unspecified (principal); I48.91 Unspecified atrial fibrillation; I51.7 Cardiomegaly | CPT/HCPCS: 93306 ==

== ENCOUNTER 2017-10-27 13:11 | Outpatient (CLI) | payer MEDICARE, OTHER ==
[2017-10-27] MEDS ORDERED: ALBUTEROL NEB 2.5 MG/3 ML INH ONE (15:00)
== END 2017-10-27 13:12 | disposition home or self-care (01) ==
LOC: RT 13:11
PROVIDERS: ATTEND Physician Assistant Medical
DX: R06.00 Dyspnea, unspecified (principal)
CPT/HCPCS: 94060; 94729; J7613

== ENCOUNTER 2017-11-27 14:54 | Outpatient (CLI) | payer MEDICARE, OTHER ==
--- NOTE | 2017-11-27 17:17 | CT Report ---
CHEST CT WITHOUT CONTRAST: 11/27/2017 COMPARISON EXAM: Chest CT 04/08/2017. INDICATION: Shortness of breath. Scarring of the lungs. TECHNIQUE: Noncontrast axial imaging of the chest with coronal and sagittal reformats. MIP lung reformats. In accordance with CT protocol optimization, one or more of the following dose reduction techniques were utilized for this exam: Automated exposure control, adjustment of mA and/or KV based on patient size, or use of iterative reconstructive technique. FINDINGS: There is increased band-like scarring of the right lower lobe as compared to the prior exam. There is now mild atelectasis and/or scar of the left lower lobe. There is a 4 mm semisolid nodule of the left lower lobe, axial image 32. Stable finding. No mediastinal, hilar, or axillary adenopathy. Cholecystectomy is noted. Limited noncontrast upper abdomen appears otherwise unremarkable. There are calcifications of the coronary arteries. No bone lesions. IMPRESSION: 1. SOMEWHAT INCREASED SCARRING OF THE LOWER LOBES. 2. LEFT LOWER LOBE 4 MM SEMISOLID NODULE IS A STABLE FINDING COMPARED TO 2016. ADDITIONAL FOLLOWUP IS WARRANTED IN A HIGH RISK PATIENT. TD: 11/27/2017 17:16 ISAAC
== END 2017-11-27 14:55 | disposition home or self-care (01) ==
LOC: DI 14:54
PROVIDERS: ATTEND Internal Medicine Pulmonary Disease
DX: R06.02 Shortness of breath (principal); J98.4 Other disorders of lung
CPT/HCPCS: 71250

== ENCOUNTER 2017-11-30 13:27 | Outpatient (CLI) | payer MEDICARE, OTHER | END 2017-11-30 13:28 | disposition home or self-care (01) | LOC: RT 13:27 | PROVIDERS: ATTEND Internal Medicine Pulmonary Disease | DX: Z01.811 Encounter for preprocedural respiratory examination (principal); C15.5 Malignant neoplasm of lower third of esophagus | CPT/HCPCS: 94010 ==

== ENCOUNTER 2017-12-07 10:57 | Outpatient (CLI) | payer MEDICARE, OTHER ==
--- NOTE | 2017-12-07 11:32 | XRAY Report ---
EXAM: LUMBOSACRAL SPINE RADIOGRAPHY EXAM DATE: 12/07/2017 11:15 AM. CLINICAL HISTORY: BACK PAIN LUMBAR. COMPARISONS: None. TECHNIQUE: 3 views. FINDINGS: Left hip prosthesis and cholecystectomy are noted. Bones: Five [id number]-pwysdza lumbar vertebral bodies are present. No fractures or bone lesions. There is mild loss of L1 and L2 vertebral body height. There are multilevel small to moderate anterio r osteophytes. There is moderate narrowing at L1-L2, L2-L3 and L3-L4. There is moderate to severe disk space narrowi ng at L4-L5 and L5-S1. Grade 1 anterolisthesis of L5 upon S1 is favored to be degenerative. Facets: Moderate degenerative changes. Sacroiliac Joints: Unremarkable. Soft Tissues: The visualized bowel gas pattern is normal. IMPRESSION: Moderate to severe lumbar spondylosis [facility] Referring Provider Line: [phone] SITE ID: [id number]
== END 2017-12-07 10:58 | disposition home or self-care (01) ==
LOC: DI 10:57
PROVIDERS: ATTEND Family Medicine
DX: M47.896 Other spondylosis, lumbar region (principal); M43.17 Spondylolisthesis, lumbosacral region
CPT/HCPCS: 72100

== ENCOUNTER 2017-12-12 10:16 | Emergency (ER) | payer MEDICARE, OTHER ==
[2017-12-12 11:00] LABS: BASOPHILS % (AUTO) 0.2 %; EOSINOPHILS % (AUTO) 0.5 %; HGB - HEMOGLOBIN 10.2 g/dL (14.0-18.0); LYMPHOCYTES # (AUTO) 0.8 10^3/uL (1.5-3.5); LYMPHOCYTES % (AUTO) 8.3 %; MEAN CORPUSCULAR HEMOGLOBIN 36.9 pg (27.0-31.0); MEAN CORPUSCULAR HGB CONC 33.7 g/dL (32.0-36.0); MEAN CORPUSCULAR VOLUME 109.6 fL (80.0-94.0); MEAN PLATELET VOLUME 7.8 fL (7.4-11.4); MONOCYTES # (AUTO) 0.7 10^3/uL (0.0-1.0); MONOCYTES % (AUTO) 7.4 %; NEUTROPHILS % (AUTO) 83.6 %; PLT - PLATELET COUNT 180 10^3/uL (130-450); RED BLOOD COUNT 2.75 10^6/uL (4.70-6.10); RED CELL DISTRIBUTION WIDTH 16.1 % (12.0-15.0); WHITE BLOOD COUNT 9.6 x10^3/uL (4.8-10.8)
[2017-12-12 11:08] LABS: ALBUMIN 3.3 g/dL (3.2-5.5); ALBUMIN/GLOBULIN RATIO 1.4 (1.0-2.2); BILIRUBIN,TOTAL 0.6 mg/dL (0.2-1.0); CALCIUM 8.7 mg/dL (8.5-10.3); TOTAL PROTEIN 5.7 g/dL (6.7-8.2)
--- NOTE | 2017-12-12 11:23 | XRAY Report ---
EXAM: CHEST RADIOGRAPHY EXAM DATE: 12/12/2017 10:55 AM. CLINICAL HISTORY: Shortness of breath. 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 TECHNIQUE: 1 view. FINDINGS: Lungs/Pleura: Relatively low lung volumes. Similar right infrahilar reticulation compatible with scar ring. No consolidation or vascular congestion. No pneumothorax or pleural effusion. Mediastinum: Stable cardiomediastinal silhouette. Other: Chronic right rib fracture deformities. No acute fracture evident. IMPRESSION: 1. No acute cardiopulmonary findings identified. 2. Persistent low lung volumes with similar right infrahilar scarring. [facility] Referring Provider Line: [phone] SITE ID: [id number]
--- NOTE | 2017-12-12 11:44 | ED Physician Documentation ---
History of Present Illness - Stated complaint Stated Complaint: DIFF BREATHING - Chief complaint Chief Complaint: General - Additonal information Additional information: hx from pt 77 male known esophageal cancer s/p radiation and chemo last fall post rad and chemo he suffered from sig diff with PO and dehydration and weakness req several re-admits also developed a decub now home, has home health, decub better after wound care has transferred his cancer care from [facility] to [place] also has a hx of a fib on xarelto - recently taken of amiodarone 2/2 lung issues , not on any rate control meds at this time and has been SOA recently and so was put on prednsione which was increased to 60 QD on 12/02 and also given an albuterol MDI 12/02 which was helping was doing fairly well until several days ago when he acutely became unable to do his daily exercises, soa with minimal exertion, diffuse swelling of face chest abd and ext, sig nearly 30 lb wt gain, night sweats no fever no sig cough no NVD no blood in BM Review of Systems Constitutional: reports: Fatigue, Sweats. denies: Fever, Chills, Weight Loss ( wt gain 30 lbs) Respiratory: reports: Dyspnea. denies: Cough (minimal) GI: reports: Abdominal Swelling. denies: Nausea, Vomiting, Diarrhea, Bloody / black stool : denies: Dysuria Skin: denies: Rash Musculoskeletal: reports: Extremity swelling Neurologic: reports: Generalized weakness Endocrine: reports: Weight gain PD PAST MEDICAL HISTORY - Past Medical History Cardiovascular: Hypertension, High cholesterol, Atrial fibrillation Respiratory: None Neuro: None Endocrine/Autoimmune: None GI: GERD, Diverticulitis, Other : None HEENT: None Psych: None Musculoskeletal: Chronic back pain, Other Derm: None - Past Surgical History Past Surgical History: Yes General: Cholecystectomy Ortho: Arthroscopic surgery Cardiovascular: Other Derm: Skin cancer surgery, Other - Present Medications Home Medications: Ambulatory Orders Medication Instructions Recorded Confirmed Acyclovir 400 mg PO DAILY 12/12/17 Baclofen 20 mg PO BID 12/12/17 Biotin 5,000 mcg PO DAILY 12/12/17 Ceramides 1,3,6-11 [Cerave] 12/12/17 Cyanocobalamin (Vitamin B-12) 5,000 mcg PO DAILY 12/12/17 [Vitamin B-12] Fluticasone [Flonase] 1 spray NS DAILY 12/12/17 Metoprolol Tartrate [Lopressor] 12.5 mg PO BID #14 tablet 12/12/17 Multivitamin/Iron/Folic Acid 1 tab PO DAILY 12/12/17 [Centrum Adults Tablet] Pantoprazole [Protonix] 40 mg PO DAILY 12/12/17 Psyllium Husk [Metamucil] 3 tsp PO DAILY 12/12/17 Rivaroxaban [Xarelto] 20 mg PO DAILY 12/12/17 Sulfamethox/Trimeth 800/160 1 12/12/17 [Bactrim Ds] predniSONE [Prednisone] 60 mg PO DAILY 12/12/17 traMADol [Ultram] 50 mg PO QID 12/12/17 - Allergies Allergies/Adverse Reactions: Allergies Allergy/AdvReac Type Severity Reaction Status Date / Time morphine AdvReac Hallucinati Verified 07/28/17 22:54 ons - Social History Does the pt smoke?: No Smoking Status: Never smoker Does the pt drink ETOH?: Yes Does the pt have substance abuse?: No - Immunizations Immunizations are current?: No - POLST Patient has POLST: Yes PD ED PE NORMAL - Vitals Vital signs reviewed: Yes - General General: Alert and oriented X 3 - HEENT HEENT: Atraumatic - Neck Neck: Supple, no meningeal sign - Cardiac Cardiac: No: RRR (tachy) - Respiratory Respiratory: Other (wheezing, R > ) - Abdomen Abdomen: Soft, Non tender, Other (distended) - Rectal Rectal: Other (flaccid hemorrhoid, soft brownish BM, strongly occult blood + QC passed) - Derm Derm: No rash, Other (decub completely healed) - Extremities Extremities: Other (mod nirav edema) - Neuro Neuro: Alert and oriented X 3 Results - Vitals Vitals: Vital Signs - 24 hr 12/12/17 12/12/17 12/12/17 10:28 10:49 12:22 Temperature 35.6 C L Heart Rate 125 H 106 H Respiratory 22 17 Rate Blood Pressure 132/86 H 121/77 O2 Saturation 97 98 12/12/17 12/12/17 12/12/17 13:37 15:07 16:34 Temperature 36.8 C Heart Rate 92 110 H 92 Respiratory 16 16 16 Rate Blood Pressure 134/52 H 124/89 H 128/90 H O2 Saturation 100 100 95 12/12/17 12/12/17 12/12/17 18:03 18:44 19:44 Temperature 37.1 C Heart Rate 98 88 59 L Respiratory 20 20 16 Rate Blood Pressure 125/105 H 115/64 109/87 H O2 Saturation 98 97 97 Oxygen O2 Source Room air - EKG (time done) 1028 Rate: Rate (enter#) (112) Rhythm: Atrial fibrillation Ischemia: Non specific changes - Labs Labs: Laboratory Tests 12/12/17 12/12/17 12/12/17 10:40 10:40 10:40 WBC 9.6 RBC 2.75 L Hgb 10.2 L Hct 30.2 L MCV 109.6 H MCH 36.9 H MCHC 33.7 RDW 16.1 H Plt Count 180 MPV 7.8 Neut # 8.0 H Lymph # 0.8 L [place] # 0.7 Eos # 0.0 Baso # 0.0 Absolute Nucleated RBC 0.03 Nucleated RBC % 0.3 Manual Slide Review Indicated RBC Morph Micro Appear 1+ POLYCHROMASIA Sodium 136 Potassium 3.9 Chloride 104 Carbon Dioxide 24 Anion Gap 8.0 BUN 35 H Creatinine 1.0 Estimated GFR (MDRD) 72 L Glucose 152 H Lactic Acid Calcium 8.7 Total Bilirubin 0.6 AST 29 ALT 31 Alkaline Phosphatase 65 Troponin I 0.04 B-Natriuretic Peptide Total Protein 5.7 L Albumin 3.3 Globulin 2.4 Albumin/Globulin Ratio 1.4 Lipase 14 L Urine Color Urine Clarity Urine pH Ur Specific [place] Urine Protein Urine Glucose (UA) Urine Ketones Urine Occult Blood Urine Nitrite Urine Bilirubin Urine Urobilinogen Ur Leukocyte Esterase Ur Microscopic Review Urine Culture Comments 12/12/17 12/12/17 12/12/17 10:40 11:03 13:57 WBC RBC Hgb Hct MCV MCH MCHC RDW Plt Count MPV Neut # Lymph # [place] # Eos # Baso # Absolute Nucleated RBC Nucleated RBC % Manual Slide Review RBC Morph Micro Appear Sodium Potassium Chloride Carbon Dioxide Anion Gap BUN Creatinine Estimated GFR (MDRD) Glucose Lactic Acid 2.3 H Calcium Total Bilirubin AST ALT Alkaline Phosphatase Troponin I B-Natriuretic Peptide 101 H Total Protein Albumin Globulin Albumin/Globulin Ratio Lipase Urine Color YELLOW Urine Clarity CLEAR Urine pH 5.0 Ur Specific [place] 1.025 Urine Protein NEGATIVE Urine Glucose (UA) NEGATIVE Urine Ketones NEGATIVE Urine Occult Blood NEGATIVE Urine Nitrite NEGATIVE Urine Bilirubin NEGATIVE Urine Urobilinogen 0.2 (NORMAL) Ur Leukocyte Esterase NEGATIVE Ur Microscopic Review NOT INDICATED Urine Culture Comments NOT INDICATED - Rads (name of study) CTA chest Radiology: See rad report (no PE, fibrosis, unchnaged 4 mm nodule, no sig effusion, no pna) CTAP Radiology: See rad report (no sig abnormality) echo Radiology: See rad report (a fib EF 55-60%) PD MEDICAL DECISION MAKING - ED course ED course: extremely complicated pt with numerous comorbidities (esophageal cancer, deconditoning, a fib on xarelto but not rate control, 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, chronic anemia) receiving/received acre at numerous facilities including [facility] and presently under the care of a team of 6 physicians (surgery pulmonary cardio rehab oncology PMD) to ED with SOA and exercise intol and sig new edema arrived tachy but afebrile could be 2/2 no rate control meds or could be 2/2 another process such as PE or infection work up including labs UA CXR and CT chest abd pelvis does not reveal a source of infection - no pna no UTI, no indwelling line port etc, decub improving, does have an elevated lactate ordered 2/2 HR but without a source of infection sig is unclear CT scans do not show a PE just fibrosis and no ascites on CT AP anemia is not new, little worse than recently - prompted a rectal exam though which is strongly heme occult, so i fear pt is bleeding from his cancer again which may be contributing to his sx and with his comorbidities a Hgb of 10 may cause sig sx edema could be 2/2 the steroids recently rx for his pulm status - does not seem he in CHF no edema on CXR and neg BNP after seeing neg BNP and no CHF on CXR did give a L of IVF as well a dose of BB for afib RVR with improved VS - did not give full 30cc/kg as I am not convinced this pt has an infectious problem at all right now echo fine - EF 55% will update pt and on results and touch base with his specialists called pts CT surgeon DR Costa at [phone] - not available but temporary receptionist stated she would page him. 0 called again - got after hours answering service [address] surgery called back and I explained all of above to her - options are basically to transfer to [place] or dc home, admitting to [facility] unlikely to be beneficial other than to monitor HR and recheck H/H - of he has increasing esophageal bleeding he would need to go to [place], if not stable for surgery perhaps IR for vessel embolization? at this point he is much improved - I think the tachycardia was RVR 2/2 no rate control for his a fib - HR controlled with BB, not hypotensive esoph cancer presumably bleeding - hgb 10 and occult blood + but not vomiting blood or black stools so likely slow bleed, not needing transfusion or emergent intervention at this time though admittedly hard to predict what bleeding will do in the future, needs to be on xarelto for a fib stroke prevention, for now would dc and have pt speak with his earth science technical officer in the AM about whether to dc xarelto for now, pt has BP cuff at home and advised to record HR and BP to help adjust metoprolol dose for edema pt is not in CHF and I think edema is due to the steroids, steroids are not helping his breathing anyway per pt so would dc that, would not give diuretic as not in CHF, am also starting lopressor and don't want to drop his BP , edema should resolve with dc steroids, should continue MDI as that did seem to help in the ER BP echo was OK, pt has stress test next Saturday for preop and would keep that appt for tonight think pt is safe to go home - needs PMD to order rpt H/H tomorrow and needs to monitor BP and HR at home and discuss with cardio, if worse should come back to ED, is esoph bleeding gets heavy would give TXA and transfer Departure - Departure Disposition: Home, Self Care Clinical Impression: Atrial fibrillation with RVR, Pulmonary fibrosis Esophageal cancer Qualifiers: Malignant neoplasm of esophagus location: unspecified location Qualified Code(s ): C15.9 - Malignant neoplasm of esophagus, unspecified GI bleed Qualifiers: GI bleed type/associated pathology: unspecified gastrointestinal hemorrhage type Qualified Code(s): K92.2 - Gastrointestinal hemorrhage, unspecified Edema Qualifiers: Edema type: generalized Qualified Code(s): R60.1 - Generalized edema Condition: Good Follow-Up: Sindhu Cleary PA-C [Primary Care Provider] - Prescriptions: Metoprolol Tartrate [Lopressor] 12.5 mg PO BID #14 tablet Comments: You have numerous problems going on 1) The esophageal cancer seems to be bleeding again - your hemoglobin is down to 10, you were at 13 in September. Most people do not need transfusion until the hemoglobin is 8 or less. I think the bleeding is slow - the stool was brown not frankly black or bloody and your blood pressure is fine. Unfortunately you also need to be on xarelto for your atrial fibrillation. You made need to stop the xarelto but you should talk to your earth science technical officer and esophageal surgeon tomorrow to determine that. At any point this bleeding could become heavier - if you feel worse (more weak, more short of air or vomit blood or pass bloody or black BMs) come straight back to the ER to have transfer to [facility] arranged. In the case of heavy bleeding, there is a medication called TXA that can be given to try and stop the bleeding until you can get to [place] 2) Your atrial fibrillation rate is out of control because you have stopped the amiodarone. In the ER we gave you a medication called metoprolol which worked very well for you and so i have prescribed an oral version. Please monitor your blood pressure and heart rate and keep a log so your PMD and/or earth science technical officer can decide if this is the right medication and dose for your atrial fibrillation. Also remember to ask your earth science technical officer and surgeon if you should stop the xarelto 3) You are short of breath because of your pulmonary fibrosis. I think the edema is due to the steroids.The work up today did not show you to have a lung infection, or congestive heart failure, or renal failure to cause the swelling. Since the steroids do not seem to be helping your breathing I would suggest stopping that medication for now. You can continue the inhaler. You should ask the special education instructor about stopping the prophylactic antibiotic For tonight I think it is OK for you to go home. 1) You need to have your PMD order a repeat blood count tomorrow (hopefully the home health care nurse can draw this for you at the house) 2) You should take the metoprolol to keep your heart rate down - and keep a log of your blood pressures and heart rates 3) Hold the xarelto for today, but call your earth science technical officer in the morning to discuss whether or not to continue 4) Stop the steroids. You can continue the inhaler 5) Call your surgeon Dr Costa and your earth science technical officer Dr Armstrong and your special education instructor Dr Pierson tomorrow to let them know the results of your tests and to determine the plan going forward 6) Return to the ER right away if worse in any way 7) I didn't find any infection but we still have several cultures running and the ER staff will call you if any of them are positive and need treatment
[2017-12-12] MEDS ORDERED: METOPROLOL 5 MG/5 ML VIAL IVP STA ×2 (12:14→15:31)
[2017-12-12] MEDS ORDERED: SODIUM CHLORIDE 0.9% 1,000 ML IV ONE (12:14)
[2017-12-12] MEDS ORDERED: IOPAMIDOL-300 100 ML VIAL ONE (12:47)
[2017-12-12] MEDS ORDERED: IOPAMIDOL-300 100 ML VIAL IVP ONE (13:35)
--- NOTE | 2017-12-12 14:05 | CT Preliminary Report ---
Exam: CT CHEST ANGIO (PE) IMPRESSION: 1. Negative for acute pulmonary embolism. 2. New trace left pleural effusion. 3. Lungs appear unchanged. Region of scarring in the medial right lower lobe appears without signific ant change. [facility] SITE ID: [id number]
--- NOTE | 2017-12-12 14:06 | CT Report ---
EXAM: CT ANGIOGRAM CHEST EXAM DATE: 12/12/2017 01:35 PM. CLINICAL HISTORY: Known cancer, dec mobility, soa tachy. COMPARISON: 11/27/2017. TECHNIQUE: Routine helical imaging was performed through the chest in the pulmonary arterial phase. I V Contrast: 100 cc Isovue-300 IV. Reconstructions: Coronal 3-D MIP reconstructions.Sagittal and coron al. In accordance with CT protocol optimization, one or more of the following dose reduction techniques w ere utilized for this exam: automated exposure control, adjustment of mA and/or KV based on patient s ize, or use of iterative reconstructive technique. FINDINGS: Pulmonary Arteries: Diagnostic quality: Adequate through the segmental arteries. No evidence for acute or chronic pulmona ry emboli. Lungs/Pleura: Again demonstrated is a region of fibrosis with architectural distortion and linear opa cities within the medial aspect of the right lower lobe. There are not new or enlarging nodular or co nsolidative densities. There is a trace left pleural effusion which appears new. No central endobronc hial obstructing lesion. 4 mm left lower lobe groundglass density nodule on series 3 image 84 is unch anged. Mediastinum: The heart size is normal. No pericardial effusion. No mediastinal or hilar lymphadenopat hy. There is a small hiatal hernia. There are dense coronary artery calcifications. Thoracic Aorta: Unremarkable. Upper Abdomen: Unremarkable. Other: None. IMPRESSION: 1. Negative for acute pulmonary embolism. 2. New trace left pleural effusion. 3. Lungs appear unchanged. Region of scarring in the medial right lower lobe appears without signific ant change. [facility] Referring Provider Line: [phone] SITE ID: [id number]
[2017-12-12 14:11] LABS: BILIRUBIN,URINE NEGATIVE (NEGATIVE); GLUCOSE, URINE (UA) NEGATIVE (NEGATIVE); KETONES,URINE (UA) NEGATIVE (NEGATIVE); LEUKOCYTE ESTERASE, URINE NEGATIVE (NEGATIVE); NITRITE,URINE NEGATIVE (NEGATIVE); OCCULT BLOOD,URINE NEGATIVE (NEGATIVE); PROTEIN,URINE NEGATIVE (NEGATIVE); UROBILINOGEN,URINE 0.2 (NORMAL) E.U./dL (NORMAL)
[2017-12-12 14:12] LABS: CLARITY,URINE CLEAR (CLEAR)
--- NOTE | 2017-12-12 14:12 | CT Preliminary Report ---
Exam: CT ABDOMEN/PELVIS W/ IMPRESSION: 1. Increased colonic stool consistent with constipation. No small bowel dilation. No abnormal fluid c ollection. 2. No other significant CT abnormality in the abdomen or pelvis. [facility] SITE ID: [id number]
--- NOTE | 2017-12-12 14:12 | CT Report ---
EXAM: CT ABDOMEN AND PELVIS EXAM DATE: 12/12/2017 01:35 PM. CLINICAL HISTORY: Abd distension, esoph cancer, CT AP s/p chest CTA. COMPARISONS: 04/08/2017. TECHNIQUE: Routine helical CT imaging was performed through the abdomen and pelvis. IV contrast: ISOV UE 300 100mL. Enteric contrast: No. Reconstructions: Coronal and sagittal. In accordance with CT protocol optimization, one or more of the following dose reduction techniques w ere utilized for this exam: automated exposure control, adjustment of mA and/or KV based on patient s ize, or use of iterative reconstructive technique. FINDINGS: Lung Bases: Unremarkable. Liver: Normal. No masses. Gallbladder/Bile Ducts: Gallbladder surgically absent. Spleen: Normal. Pancreas: Normal. Adrenal Glands: Normal. Kidneys: Normal. No masses or hydronephrosis. Peritoneal Cavity/Bowel: There is increased stool in the colon from the cecum to the splenic flexure. The small bowel is normal in caliber. No focal bowel lesion visualized by CT. No free fluid or free air. The appendix is well visualized and normal. Pelvic Organs: Urinary bladder is partially obscured by streak artifact from left hip replacement. Vasculature: No aneurysms or other significant abnormality. Bones: There is moderately advanced chronic degenerative disease of the right hip. Previous left hip arthroplasty noted. Other: None. IMPRESSION: 1. Increased colonic stool consistent with constipation. No small bowel dilation. No abnormal fluid c ollection. 2. No other significant CT abnormality in the abdomen or pelvis. [facility] Referring Provider Line: [phone] SITE ID: [id number]
[2017-12-12] MEDS ORDERED: D5.45NS W/20 MEQ KCL 1,000 ML IV STA (15:31)
[2017-12-12] MEDS ORDERED: SODIUM CHLORIDE 0.9% 500 ML IV ONE (15:41)
[2017-12-12] MEDS ORDERED: METOPROLOL TARTRATE 50 MG TABLET PO STA (18:34)
[2017-12-12 19:46] VITALS: BP 109/87
== END 2017-12-12 20:15 | disposition home or self-care (01) ==
LOC: ED 10:16
DX: I48.91 Unspecified atrial fibrillation (principal); J84.10 Pulmonary fibrosis, unspecified; C15.9 Malignant neoplasm of esophagus, unspecified; K92.2 Gastrointestinal hemorrhage, unspecified; I10 Essential (primary) hypertension; Z92.3 Personal history of irradiation; Z92.21 Personal history of antineoplastic chemotherapy
CPT/HCPCS: 36415; 71045; 71275; 74177; 80053; 81003; 83605; 83690; 83880; 84484; 85025; 87040; 93005; 93306; 96361; 96365; 96366; 96375; 96376; 99284; A9270; Q9967; 81001; 87086

== ENCOUNTER 2017-12-13 16:14 | Outpatient (CLI) | payer MEDICARE, OTHER ==
[2017-12-13 17:14] LABS: BASOPHILS % (AUTO) 0.7 %; EOSINOPHILS # (AUTO) 0.1 10^3/uL (0.0-0.7); EOSINOPHILS % (AUTO) 0.9 %; HGB - HEMOGLOBIN 10.7 g/dL (14.0-18.0); LYMPHOCYTES # (AUTO) 1.2 10^3/uL (1.5-3.5); MEAN CORPUSCULAR HGB CONC 32.8 g/dL (32.0-36.0); MEAN CORPUSCULAR VOLUME 109.8 fL (80.0-94.0); MONOCYTES # (AUTO) 0.5 10^3/uL (0.0-1.0); MONOCYTES % (AUTO) 7.2 %; NEUTROPHILS # (AUTO) 5.5 10^3/uL (1.5-6.6); NEUTROPHILS % (AUTO) 75.2 %; PLT - PLATELET COUNT 210 10^3/uL (130-450); RED BLOOD COUNT 2.96 10^6/uL (4.70-6.10); RED CELL DISTRIBUTION WIDTH 15.6 % (12.0-15.0); WHITE BLOOD COUNT 7.3 x10^3/uL (4.8-10.8)
[2017-12-13 18:45] LABS: PLATELET ESTIMATE, MANUAL NORMAL (130-450,000) (NORMAL); PLATELET MORPHOLOGY NORMAL APPEARANCE (NORMAL)
== END 2017-12-13 16:15 | disposition home or self-care (01) ==
LOC: LAB 16:14
PROVIDERS: ATTEND Physician Assistant Medical
DX: Z01.812 Encounter for preprocedural laboratory examination (principal); D64.9 Anemia, unspecified
CPT/HCPCS: 36415; 82565; 82728; 85025

== ENCOUNTER 2017-12-13 16:22 | Outpatient (CLI) | payer MEDICARE, OTHER ==
--- NOTE | 2017-12-15 16:49 | MRI Report ---
EXAM: MRI LUMBAR SPINE WITHOUT CONTRAST EXAM DATE: 12/13/2017 05:54 PM. CLINICAL HISTORY: BACK PAIN LUMBAR. COMPARISON: Radiographs lumbar spine 12/07/2017 TECHNIQUE: Multiplanar, multisequence T1-weighted and fluid-sensitive sequences of the lumbar spine f rom T12 to S1 without contrast. Other: None. FINDINGS: Spinal Cord: The conus terminates at T12-L1. The conus medullaris and cauda equina are unremarkable. Alignment: Grade 1 anterolisthesis L5 on S1 measuring 8 mm, due to bilateral L5 pars fractures. Grade 1 retrolisthesis L2 on L3 measuring 5 mm. Bone Marrow: Five mxr-uvh-wavqswc lumbar vertebral bodies are assumed. Diffuse fatty replacement of t he bone marrow. There is a compression fracture involving the superior endplate of L1 at approximatel y 10% height loss. Given corresponding hyperintensity on the STIR sequence (series 501 image 8), the fracture is likely acute/subacute. Modic type II degenerative endplate changes at L4-L5 level Disk Levels/Facets: T12-L1: Mild bilateral facet arthropathy. No significant central canal or foraminal narrowing. L1-L2: Moderate disk height loss and desiccation. Mild diffuse disk bulge. Mild bilateral facet arthr opathy. Mild anterior dural compression. No significant central canal narrowing. Moderate bilateral f oraminal narrowing. L2-L3: Moderate to severe disk height loss and desiccation. Moderate diffuse disk bulge with endplate spurring. Mild bilateral facet arthropathy. Mild central canal narrowing. Moderate bilateral foramin al narrowing. L3-L4: Moderate disk height loss and desiccation with moderate diffuse disk bulge. Moderate to severe bilateral facet arthropathy and ligamentum flavum hypertrophy. Mild central canal narrowing. Moderat e to severe bilateral foraminal narrowing. L4-L5: Severe disk height loss and desiccation. Moderate diffuse disk bulge with endplate spurring. M oderate bilateral facet arthropathy. No central canal narrowing. Severe right and ilxi-ii-ddilpgfh le ft foraminal narrowing. L5-S1: Uncovered disk and superimposed diffuse disk bulge. Moderate to severe bilateral facet arthrop athy. No central canal narrowing. Moderate to severe right and severe left foraminal narrowing. Musculature: Moderate fatty atrophy of the paraspinal musculature. Other: The partially visualized retroperitoneum is unremarkable. IMPRESSION: 1. Moderate multilevel degenerative spondylosis, as detailed above and summarized below. 2. Grade 1 anterolisthesis L5 on S1 measuring 8 mm, due to bilateral L5 pars fractures. Grade 1 retro listhesis L2 on L3 measuring 5 mm. 3. Compression fracture involving the superior endplate of L1 at approximately 10% height loss. Given corresponding hyperintensity on the STIR sequence (series 501 image 8), the fracture is likely acute /subacute. 4. L1-L2 level demonstrates no significant central canal narrowing. Moderate bilateral foraminal narr owing. 5. L2-L3 level demonstrates mild central canal narrowing. Moderate bilateral foraminal narrowing. 6. L3-L4 level demonstrates mild central canal narrowing. Moderate to severe bilateral foraminal narr owing. 7. L4-L5 level demonstrates no central canal narrowing. Severe right and rftr-wy-rlltgjms left forami nal narrowing. 8. L5-S1 level demonstrates no central canal narrowing. Moderate to severe right and severe left fora seymour narrowing. Comment: The following findings are so common in adults without low back pain that while we report th eir presence, they must be interpreted with caution and in the context of the clinical situation. (Re danie Pollack et al, Spine 2001) Prevalence of findings in patients without low back pain: Disk degeneration (any evidence): 92% Disk desiccation/T2 signal loss: 83% Disk height loss: 56% Disk bulge: 64% Disk protrusion: 32% Annular tear/high intensity zone: 38% [facility] Referring Provider Line: [phone] SITE ID: [id number]
== END 2017-12-13 16:23 | disposition home or self-care (01) ==
LOC: DI 16:22
PROVIDERS: ATTEND Family Medicine
DX: M51.36 Other intervertebral disc degeneration, lumbar region (principal); M47.896 Other spondylosis, lumbar region; M48.56XA Collapsed vertebra, not elsewhere classified, lumbar region, initial encounter for fracture; M43.06 Spondylolysis, lumbar region; D64.9 Anemia, unspecified; Z01.82 Encounter for allergy testing
CPT/HCPCS: 36415; 72148; 82565; 82728; 85025

== ENCOUNTER 2017-12-31 11:06 | Outpatient (CLI) | payer MEDICARE, OTHER ==
[2017-12-31 13:08] LABS: BASOPHILS % (AUTO) 0.3 %; EOSINOPHILS % (AUTO) 0.3 %; HGB - HEMOGLOBIN 11.3 g/dL (14.0-18.0); LYMPHOCYTES # (AUTO) 0.6 10^3/uL (1.5-3.5); LYMPHOCYTES % (AUTO) 5.3 %; MEAN CORPUSCULAR HEMOGLOBIN 34.1 pg (27.0-31.0); MEAN CORPUSCULAR HGB CONC 33.3 g/dL (32.0-36.0); MEAN CORPUSCULAR VOLUME 102.4 fL (80.0-94.0); MEAN PLATELET VOLUME 8.9 fL (7.4-11.4); MONOCYTES # (AUTO) 0.8 10^3/uL (0.0-1.0); MONOCYTES % (AUTO) 7.3 %; NEUTROPHILS # (AUTO) 9.8 10^3/uL (1.5-6.6); NEUTROPHILS % (AUTO) 86.8 %; PLT - PLATELET COUNT 256 10^3/uL (130-450); RED BLOOD COUNT 3.31 10^6/uL (4.70-6.10); RED CELL DISTRIBUTION WIDTH 17.4 % (12.0-15.0); WHITE BLOOD COUNT 11.3 x10^3/uL (4.8-10.8)
[2017-12-31 13:49] LABS: PLATELET ESTIMATE, MANUAL NORMAL (130-450,000) (NORMAL); PLATELET MORPHOLOGY NORMAL APPEARANCE (NORMAL)
[2017-12-31 13:50] LABS: DIFFERENTIAL COMMENT MANUAL=AUTO DIFF
== END 2017-12-31 11:07 | disposition home or self-care (01) ==
LOC: LAB.WCP 11:06
PROVIDERS: ATTEND Family Medicine
DX: D64.9 Anemia, unspecified (principal)
CPT/HCPCS: 36415; 85025

== ENCOUNTER 2018-01-26 10:33 | Outpatient (CLI) | payer MEDICARE, OTHER ==
[2018-01-26 11:04] LABS: BILIRUBIN,URINE NEGATIVE (NEGATIVE); GLUCOSE, URINE (UA) NEGATIVE (NEGATIVE); KETONES,URINE (UA) NEGATIVE (NEGATIVE); LEUKOCYTE ESTERASE, URINE MODERATE (NEGATIVE); NITRITE,URINE POSITIVE (NEGATIVE); OCCULT BLOOD,URINE MODERATE (NEGATIVE); PROTEIN,URINE 30 mg/dL (NEGATIVE); UROBILINOGEN,URINE 0.2 (NORMAL) E.U./dL (NORMAL)
[2018-01-26 11:05] LABS: BASOPHILS # (AUTO) 0.1 10^3/uL (0.0-0.1); BASOPHILS % (AUTO) 1.1 %; EOSINOPHILS % (AUTO) 0.2 %; HGB - HEMOGLOBIN 10.9 g/dL (14.0-18.0); LYMPHOCYTES # (AUTO) 0.9 10^3/uL (1.5-3.5); MEAN CORPUSCULAR HEMOGLOBIN 30.7 pg (27.0-31.0); MEAN CORPUSCULAR HGB CONC 32.2 g/dL (32.0-36.0); MEAN CORPUSCULAR VOLUME 95.2 fL (80.0-94.0); MEAN PLATELET VOLUME 7.8 fL (7.4-11.4); MONOCYTES # (AUTO) 1.3 10^3/uL (0.0-1.0); MONOCYTES % (AUTO) 9.9 %; NEUTROPHILS # (AUTO) 10.8 10^3/uL (1.5-6.6); NEUTROPHILS % (AUTO) 81.8 %; PLT - PLATELET COUNT 259 10^3/uL (130-450); RED BLOOD COUNT 3.56 10^6/uL (4.70-6.10); RED CELL DISTRIBUTION WIDTH 18.2 % (12.0-15.0); WHITE BLOOD COUNT 13.2 x10^3/uL (4.8-10.8)
[2018-01-26 11:06] LABS: CLARITY,URINE CLOUDY (CLEAR)
[2018-01-26 11:17] LABS: ALBUMIN 3.4 g/dL (3.2-5.5); ALBUMIN/GLOBULIN RATIO 1.2 (1.0-2.2); BILIRUBIN,TOTAL 0.9 mg/dL (0.2-1.0); CALCIUM 8.9 mg/dL (8.5-10.3); CREATININE 0.9 mg/dL (0.6-1.2); TOTAL PROTEIN 6.3 g/dL (6.7-8.2)
[2018-01-26 11:25] LABS: BACTERIA,URINE Moderate /HPF (None Seen); SQUAMOUS EPITHELIAL CELL,UR FEW Squamous (<= Few)
--- NOTE | 2018-01-26 11:57 | XRAY Report ---
EXAM: CHEST RADIOGRAPHY EXAM DATE: 01/26/2018 11:07 AM. CLINICAL HISTORY: Low-grade fever. History of pneumonia. Immunocompromised. COMPARISON: 12/12/2017. TECHNIQUE: 2 views. FINDINGS: Lungs/Pleura: Lung volumes are somewhat low. Similar right infrahilar opacity which may reflect scarr ing. No new pulmonary opacities. No significant pleural effusion or evidence of pneumothorax. Mediastinum: Heart and mediastinal contours are unremarkable. Other: None. IMPRESSION: No convincing acute cardiopulmonary abnormality. Similar low lung volumes, right infrahi lar scarring. [facility] Referring Provider Line: [phone] SITE ID: [id number]
--- NOTE | 2018-01-26 11:57 | XRAY Preliminary Report ---
Exam: XR CHEST 2 VIEW X-RAY IMPRESSION: No convincing acute cardiopulmonary abnormality. Similar low lung volumes, right infrahi lar scarring. [facility] SITE ID: [id number]
== END 2018-01-26 10:34 | disposition home or self-care (01) ==
LOC: DI 10:33
PROVIDERS: ATTEND Physician Assistant Medical
DX: R50.9 Fever, unspecified (principal); C15.5 Malignant neoplasm of lower third of esophagus
CPT/HCPCS: 36415; 71046; 80053; 81001; 81003; 85025; 87086

== ENCOUNTER 2018-02-09 11:47 | Outpatient (CLI) | payer MEDICARE, OTHER ==
[2018-02-09 12:03] LABS: BILIRUBIN,URINE NEGATIVE (NEGATIVE); GLUCOSE, URINE (UA) NEGATIVE (NEGATIVE); KETONES,URINE (UA) NEGATIVE (NEGATIVE); LEUKOCYTE ESTERASE, URINE NEGATIVE (NEGATIVE); NITRITE,URINE NEGATIVE (NEGATIVE); OCCULT BLOOD,URINE NEGATIVE (NEGATIVE); PH,URINE 5.5 PH (5.0-7.5); PROTEIN,URINE NEGATIVE (NEGATIVE); UROBILINOGEN,URINE 0.2 (NORMAL) E.U./dL (NORMAL)
[2018-02-09 12:09] LABS: BACTERIA,URINE None Seen /HPF (None Seen); CLARITY,URINE CLEAR (CLEAR); RBC,URINE None Seen /HPF (0-5); SQUAMOUS EPITHELIAL CELL,UR RARE Squamous (<= Few)
== END 2018-02-09 11:48 | disposition home or self-care (01) ==
LOC: LAB 11:47
PROVIDERS: ATTEND Family Medicine
DX: R30.0 Dysuria (principal)
CPT/HCPCS: 81001; 87086

== ENCOUNTER 2018-02-24 14:15 | Outpatient (CLI) | payer MEDICARE, OTHER ==
[2018-02-24 19:45] LABS: BASOPHILS % (AUTO) 0.5 %; EOSINOPHILS # (AUTO) 0.1 10^3/uL (0.0-0.7); EOSINOPHILS % (AUTO) 1.8 %; HGB - HEMOGLOBIN 11.4 g/dL (14.0-18.0); LYMPHOCYTES # (AUTO) 1.7 10^3/uL (1.5-3.5); LYMPHOCYTES % (AUTO) 27.8 %; MEAN CORPUSCULAR HEMOGLOBIN 29.3 pg (27.0-31.0); MEAN CORPUSCULAR HGB CONC 30.9 g/dL (32.0-36.0); MEAN CORPUSCULAR VOLUME 94.8 fL (80.0-94.0); MEAN PLATELET VOLUME 8.9 fL (7.4-11.4); MONOCYTES # (AUTO) 0.7 10^3/uL (0.0-1.0); MONOCYTES % (AUTO) 11.5 %; NEUTROPHILS # (AUTO) 3.6 10^3/uL (1.5-6.6); NEUTROPHILS % (AUTO) 58.4 %; PLT - PLATELET COUNT 236 10^3/uL (130-450); RED BLOOD COUNT 3.89 10^6/uL (4.70-6.10); RED CELL DISTRIBUTION WIDTH 18.4 % (12.0-15.0); WHITE BLOOD COUNT 6.1 x10^3/uL (4.8-10.8)
[2018-02-24 20:04] LABS: ALBUMIN 3.5 g/dL (3.2-5.5); ALBUMIN/GLOBULIN RATIO 1.2 (1.0-2.2); BILIRUBIN,TOTAL 0.4 mg/dL (0.2-1.0); CALCIUM 9.4 mg/dL (8.5-10.3); CREATININE 0.9 mg/dL (0.6-1.2); TOTAL PROTEIN 6.5 g/dL (6.7-8.2)
[2018-02-24 20:06] LABS: INR 1.6 (0.8-1.2); PT - PROTHROMBIN TIME 17.5 secs (9.9-12.6)
== END 2018-02-24 14:16 | disposition home or self-care (01) ==
LOC: LAB.WCP 14:15
PROVIDERS: ATTEND Family Medicine
DX: C15.9 Malignant neoplasm of esophagus, unspecified (principal); Z79.01 Long term (current) use of anticoagulants
CPT/HCPCS: 36415; 80053; 85025; 85610; 85730

== ENCOUNTER 2018-03-24 10:21 | Outpatient (CLI) | payer MEDICARE, OTHER ==
--- NOTE | 2018-03-24 13:17 | DEXA Report ---
Procedure Date: 03/24/2018 Accession Number: [id number] / [id number] Procedure: DEX - Dexa Spine and/or Hip CPT Code: FULL RESULT: EXAM: Dexa Spine and/or Hip DATE: 03/24/2018 10:45 AM CLINICAL HISTORY: BONE DISEASE, MALAISE AND FATIGUE TECHNIQUE: Dual energy x-ray absorptiometry (DXA) was performed on a [employer] System. Regions measured are the AP Spine, femoral neck, and if needed forearm. COMPARISON: None. In accordance with the International Society for Clinical Densitometry (ISCD) guidelines, data from previous exams may be reanalyzed using current recommendations and techniques. This is done to allow a more accurate basis for comparison with the current study. FINDINGS: The data for the lumbar spine is as follows: BMD (g/cm/cm) T-SCORE Z-SCORE REGION L1 L2 1.334 0.8 1.2 L3 1.314 0.6 1.0 L4 1.282 0.4 0.8 TOTAL 1.305 0.5 1.0 NOTE: All evaluable vertebrae are used for classification. L1 excluded, due to previous fracture and vertebroplasty. The data for the hip is as follows: BMD (g/cm/cm) T-SCORE Z-SCORE REGION Neck 0.585 -3.7 -2.4 TOTAL 0.675 -3.0 -2.0 NOTE: The femoral neck or total proximal femur, whichever is lowest, is used for classification. IMPRESSION: THE WHO CLASSIFICATION BASED ON THE INTERNATIONAL REFERENCE STANDARD IS OSTEOPOROSIS. THE FRACTURE RISK IS HIGH. RECOMMENDATION: Patients with diagnosis of osteoporosis or osteopenia should have regular bone mineral density assessment. For those eligible for Medicare, routine testing is allowed once every 2 years. Testing frequency can be increased for patients who have rapidly progressing disease or for those who are receiving medical therapy to restore bone mass. COMMENT: World Health Organization (WHO) definitions for osteoporosis and osteopenia: NORMAL BMD: T-score at -1.0 or higher, fracture risk is low OSTEOPENIA BMD: T-score between -1.0 and -2.5, fracture risk is increased. OSTEOPOROSIS BMD: T-score at -2.5 or lower, fracture risk is high. National Osteoporosis Foundation recommends: 1. Obtain adequate dietary calcium (at least 1200 mg per day) and vitamin D (400-800 international units per day). 2. Participate, as appropriate, in regular weightbearing and muscle-strengthening exercise. 3. Avoid tobacco use and reduce alcohol and caffeine intake. 4. For more detailed information see the website at www.NOF.org.
== END 2018-03-24 10:22 | disposition home or self-care (01) ==
LOC: DI 10:21
PROVIDERS: ATTEND Family Medicine
DX: M81.0 Age-related osteoporosis without current pathological fracture (principal)
CPT/HCPCS: 77080

== ENCOUNTER 2018-04-19 12:36 | Outpatient (CLI) | payer MEDICARE, OTHER ==
--- NOTE | 2018-04-20 02:11 | XRAY Report ---
Procedure Date: 04/19/2018 Accession Number: [id number] / [id number] Procedure: XR - Thoracic Spine 2 View CPT Code: FULL RESULT: EXAM: THORACIC SPINE RADIOGRAPHY EXAM DATE: 04/19/2018 01:09 PM. CLINICAL HISTORY: ACUTE MIDLINE THORACIC BACK PAIN. COMPARISON: CHEST 2 VIEW 01/26/2018 LUMBAR SPINE W/O 12/13/2017. TECHNIQUE: 2 views. FINDINGS: Alignment: Normal. No spondylolisthesis or scoliosis. Bones: Mild compression deformity of T10, stable from MRI 12/13/2017. No acute fracture. Disks: Mild degenerative disk disease. Soft Tissues: Normal. The visualized lungs and cardiomediastinal silhouette are normal. IMPRESSION: Remote T10 compression fracture. No evidence of an acute fracture. [facility]
== END 2018-04-19 12:37 | disposition home or self-care (01) ==
LOC: DI 12:36
PROVIDERS: ATTEND Physical Medicine & Rehabilitation
DX: M54.6 Pain in thoracic spine (principal); M51.34 Other intervertebral disc degeneration, thoracic region
CPT/HCPCS: 72070

== ENCOUNTER 2018-05-28 11:59 | Outpatient (CLI) | payer MEDICARE, OTHER ==
[2018-05-28 12:44] LABS: BASOPHILS # (AUTO) 0.1 10^3/uL (0.0-0.1); BASOPHILS % (AUTO) 1.2 %; EOSINOPHILS # (AUTO) 0.1 10^3/uL (0.0-0.7); EOSINOPHILS % (AUTO) 2.1 %; HGB - HEMOGLOBIN 12.8 g/dL (14.0-18.0); LYMPHOCYTES # (AUTO) 1.4 10^3/uL (1.5-3.5); LYMPHOCYTES % (AUTO) 20.7 %; MEAN CORPUSCULAR HEMOGLOBIN 29.5 pg (27.0-31.0); MEAN CORPUSCULAR HGB CONC 32.4 g/dL (32.0-36.0); MEAN PLATELET VOLUME 8.1 fL (7.4-11.4); MONOCYTES # (AUTO) 0.5 10^3/uL (0.0-1.0); NEUTROPHILS # (AUTO) 4.6 10^3/uL (1.5-6.6); PLT - PLATELET COUNT 239 10^3/uL (130-450); RED BLOOD COUNT 4.36 10^6/uL (4.70-6.10); RED CELL DISTRIBUTION WIDTH 19.1 % (12.0-15.0); WHITE BLOOD COUNT 6.8 x10^3/uL (4.8-10.8)
[2018-05-28 12:50] LABS: INR 1.7 (0.8-1.2); PT - PROTHROMBIN TIME 19.2 secs (9.9-12.6)
[2018-05-28 13:04] LABS: ALBUMIN 3.8 g/dL (3.2-5.5); ALBUMIN/GLOBULIN RATIO 1.4 (1.0-2.2); BILIRUBIN,TOTAL 0.6 mg/dL (0.2-1.0); CALCIUM 8.8 mg/dL (8.5-10.3); CREATININE 0.7 mg/dL (0.6-1.2); TOTAL PROTEIN 6.6 g/dL (6.7-8.2)
[2018-05-28 13:19] LABS: HB2 TOTAL 13.6 g/dL; HEMOGLOBIN A1C 0.46 g/dL; HEMOGLOBIN A1C % 5.2 % (4.6-6.2)
[2018-05-28 13:21] LABS: FERRITIN 17.3 ng/mL (23.9-336.2)
== END 2018-05-28 12:00 | disposition home or self-care (01) ==
LOC: LAB 11:59
PROVIDERS: ATTEND Surgery
DX: D64.9 Anemia, unspecified (principal); R73.9 Hyperglycemia, unspecified; C15.9 Malignant neoplasm of esophagus, unspecified; Z79.01 Long term (current) use of anticoagulants
CPT/HCPCS: 36415; 80053; 82607; 82728; 83036; 83540; 84466; 85025; 85610

== ENCOUNTER 2018-06-14 15:21 | Emergency (ER) | payer MEDICARE, OTHER ==
[2018-06-14 15:32] VITALS: BP 132/78
--- NOTE | 2018-06-14 15:54 | ED Physician Documentation ---
PD HPI ABD PAIN - Stated complaint Stated Complaint: ABD PX - Chief complaint Chief Complaint: Abd Pain - History obtained from History obtained from: Patient, Family - History of Present Illness Timing - onset: How many days ago (7) Timing - duration: Days (7) Timing - details: Gradual onset, Still present, Waxing and waning Quality: Sharp, Pain Location: Epigastric Radiation: Chest Improved by: Meds Worsened by: Eating Associated symptoms: Nausea Similar symptoms before: Diagnosis (cancer pain) Recently seen: Clinic - Additional information Additional information: 77-year-old male who is going undergoing active treatment for esophageal cancer has significant pain in his esophagus and stomach and he has been taking some pain medication for this. He has run out of this and did not feel well enough to wait for a prescription when he was in his last appointment. He has been using hydrocodone liquid 7.5/15ml and he is taking 7.5ml doses. Review of Systems Constitutional: denies: Fever Respiratory: denies: Cough GI: denies: Vomiting PD PAST MEDICAL HISTORY - Past Medical History Cardiovascular: Hypertension, High cholesterol, Atrial fibrillation Respiratory: None Endocrine/Autoimmune: None GI: GERD, Diverticulitis, Other : None HEENT: None Psych: None Musculoskeletal: Chronic back pain, Other Derm: None - Past Surgical History Past Surgical History: Yes General: Cholecystectomy Ortho: Arthroscopic surgery Cardiovascular: Other Derm: Skin cancer surgery, Other - Present Medications Home Medications: Ambulatory Orders Medication Instructions Recorded Confirmed Acyclovir 400 mg PO DAILY 12/12/17 04/23/18 Biotin 5,000 mcg PO DAILY 12/12/17 04/23/18 Ceramides 1,3,6-11 [Cerave] 1 bottle TOP DAILY 12/12/17 04/23/18 Cyanocobalamin (Vitamin B-12) 5,000 mcg PO DAILY 12/12/17 04/23/18 [Vitamin B-12] Fluticasone [Flonase] 1 spray NS DAILY 12/12/17 04/23/18 Metoprolol Tartrate [Lopressor] 12.5 mg PO BID #14 tablet 12/12/17 04/23/18 Multivitamin/Iron/Folic Acid 1 tab PO DAILY 12/12/17 04/23/18 [Centrum Adults Tablet] Pantoprazole [Protonix] 40 mg PO DAILY 12/12/17 04/23/18 Psyllium Husk [Metamucil] 3 tsp PO DAILY 12/12/17 04/23/18 Rivaroxaban [Xarelto] 20 mg PO DAILY 12/12/17 04/23/18 traMADol [Ultram] 50 mg PO QID 12/12/17 04/23/18 Hydrocodone/Acetaminophen 15 ml PO Q6HR PRN #250 ml 06/14/18 [Hydrocodon-Acetamin 7.5-325/15] Metformin HCl 1 tab PO DAILY 06/14/18 06/14/18 - Allergies Allergies/Adverse Reactions: Allergies Allergy/AdvReac Type Severity Reaction Status Date / Time morphine AdvReac Hallucinati Verified 06/14/18 15:33 ons - Social History Does the pt smoke?: No Smoking Status: Never smoker Does the pt drink ETOH?: Yes Does the pt have substance abuse?: No - Immunizations Immunizations are current?: No - POLST Patient has POLST: Yes PD ED PE NORMAL - Vitals Vital signs reviewed: Yes (hyertnesive) - General General: Alert and oriented X 3, No acute distress, Well developed/nourished, Other (77 y/o male dressed in gloves a hat and facemask for phototherapy ) - HEENT HEENT: Atraumatic - Respiratory Respiratory: No respiratory distress - Extremities Extremities: No deformity, Normal ROM s pain, No edema - Neuro Neuro: Alert and oriented X 3, sas developer 2-12 intact, No motor deficit, No sensory deficit, Normal speech Eye Opening: Spontaneous Motor: Obeys Commands Verbal: Oriented GCS Score: 15 - Psych Psych: Normal mood Results - Vitals Vitals: Vital Signs - 24 hr 06/14/18 15:26 Temperature 36.4 C L Heart Rate 83 Respiratory 18 Rate Blood Pressure 132/78 H O2 Saturation 97 Oxygen O2 Source Room air PD MEDICAL DECISION MAKING - ED course Complexity details: reviewed old records, reviewed results, re-evaluated patient, considered differential, d/w patient, d/w family ED course: 77-year-old male with chronic cancer pain has no pain medication left and we have refilled his liquid hydrocodone. - Sepsis Event Vital Signs: Vital Signs - 24 hr 06/14/18 15:26 Temperature 36.4 C L Heart Rate 83 Respiratory 18 Rate Blood Pressure 132/78 H O2 Saturation 97 Oxygen O2 Source Room air Departure - Departure Disposition: 01 Home, Self Care Clinical Impression: Cancer associated pain Condition: Stable Instructions: ED Chronic Pain Management Follow-Up: Sindhu Cleary PA-C [Primary Care Provider] - Prescriptions: Hydrocodone/Acetaminophen [Hydrocodon-Acetamin 7.5-325/15] 15 ml PO Q6HR PRN #250 ml PRN Reason: Pain
== END 2018-06-14 16:06 | disposition home or self-care (01) ==
LOC: ED 15:21
DX: G89.3 Neoplasm related pain (acute) (chronic) (principal); C15.9 Malignant neoplasm of esophagus, unspecified; I10 Essential (primary) hypertension; E78.00 Pure hypercholesterolemia, unspecified
CPT/HCPCS: 99283

== ENCOUNTER 2018-06-25 09:44 | Outpatient (CLI) | payer MEDICARE, OTHER ==
[2018-06-25 10:35] LABS: BASOPHILS # (AUTO) 0.1 10^3/uL (0.0-0.1); BASOPHILS % (AUTO) 0.8 %; EOSINOPHILS # (AUTO) 0.1 10^3/uL (0.0-0.7); EOSINOPHILS % (AUTO) 1.5 %; HGB - HEMOGLOBIN 13.8 g/dL (14.0-18.0); LYMPHOCYTES # (AUTO) 1.9 10^3/uL (1.5-3.5); LYMPHOCYTES % (AUTO) 19.9 %; MEAN CORPUSCULAR HEMOGLOBIN 30.5 pg (27.0-31.0); MEAN CORPUSCULAR HGB CONC 32.7 g/dL (32.0-36.0); MEAN CORPUSCULAR VOLUME 93.3 fL (80.0-94.0); MEAN PLATELET VOLUME 7.3 fL (7.4-11.4); MONOCYTES # (AUTO) 0.8 10^3/uL (0.0-1.0); MONOCYTES % (AUTO) 8.6 %; NEUTROPHILS # (AUTO) 6.6 10^3/uL (1.5-6.6); NEUTROPHILS % (AUTO) 69.2 %; PLT - PLATELET COUNT 393 10^3/uL (130-450); RED BLOOD COUNT 4.52 10^6/uL (4.70-6.10); RED CELL DISTRIBUTION WIDTH 17.3 % (12.0-15.0); WHITE BLOOD COUNT 9.5 x10^3/uL (4.8-10.8)
== END 2018-06-25 09:45 | disposition home or self-care (01) ==
LOC: LAB 09:44
PROVIDERS: ATTEND Physician Assistant Medical
DX: D64.9 Anemia, unspecified (principal)
CPT/HCPCS: 36415; 85025

== ENCOUNTER 2018-07-01 09:47 | Outpatient (CLI) | payer MEDICARE, OTHER ==
--- NOTE | 2018-07-02 09:29 | CT Report ---
Reason: CHRONIC BILATERAL THORACIC BACK PAIN Procedure Date: 07/01/2018 Accession Number: [id number] / [id number] Procedure: CT - Thoracic Spine W/O CPT Code: FULL RESULT: EXAM: CT THORACIC SPINE WITHOUT CONTRAST EXAM DATE: 07/01/2018 11:00 AM. CLINICAL HISTORY: CHRONIC BILATERAL THORACIC BACK PAIN. COMPARISONS: MR thoracic spine 04/22/2018, CT chest 12/12/2017. TECHNIQUE: Thin-section axial images were acquired of the thoracic spine from C7 to L1 without contrast. Post-processing: Coronal and sagittal reformats. Other: None. In accordance with CT protocol optimization, one or more of the following dose reduction techniques were utilized for this exam: automated exposure control, adjustment of mA and/or KV based on patient size, or use of iterative reconstructive technique. FINDINGS: 12 thoracic rib-bearing vertebrae demonstrated. Changes of previous cement augmentation of T4, T7 and L1. Cement at L1 extends to the central basivertebral venous plexus without encroachment of the central canal or neural foramen. Chronic appearing anterior wedge deformity of T11 redemonstrated without significant change. No evidence for acute fracture or subluxation. No significant spinal canal or foraminal narrowing. Degenerative changes significant at C7-T1 without significant canal or foraminal narrowing. Chronic changes of cholecystectomy. Bronchiectasis in the right middle lobe, lingula, left lower lobe, and posterior right lower lobe. Trace bilateral pleural effusions. The thoracic esophagus is dilated with debris, likely food particulate. Evaluation of the mucosal space is limited. 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 At the mid and lower third of the thoracic esophagus, there is paraesophageal fat stranding. Wall thickening at this location suspected. IMPRESSION: 1. Changes of previous cement augmentation of T4, T7 and L1 without acute fracture. Chronic fracture deformity of T11 without significant change. 2. No significant spinal canal or foraminal narrowing. 3. Dilated thoracic esophagus, filled with debris, likely food particulate. Paraesophageal fat stranding present in mid and lower third of the esophagus, with suspected wall thickening. Differential consideration include inflammation/esophagitis, although neoplasm not excluded. Gastroenterology consultation and consideration for endoscopy suggested. 4. Bronchiectasis of the right middle lobe, lingula and lower lobes with stable subsegmental scarring of the posterior right lower lobe unchanged from CT chest 12/12/2017. Potential etiology include prior infection/inflammation, recurrent aspiration. [facility]
== END 2018-07-01 09:48 | disposition home or self-care (01) ==
LOC: DI 09:47
PROVIDERS: ATTEND Physical Medicine & Rehabilitation
DX: M47.9 Spondylosis, unspecified (principal); M48.54XS Collapsed vertebra, not elsewhere classified, thoracic region, sequela of fracture; J47.9 Bronchiectasis, uncomplicated
CPT/HCPCS: 72128

== ENCOUNTER 2019-01-16 11:08 | Outpatient (CLI) | payer MEDICARE, OTHER ==
[2019-01-16 11:46] LABS: BASOPHILS # (AUTO) 0.2 10^3/uL (0.0-0.1); BASOPHILS % (AUTO) 1.7 %; EOSINOPHILS % (AUTO) 10.4 %; HGB - HEMOGLOBIN 10.7 g/dL (14.0-18.0); LYMPHOCYTES % (AUTO) 20.3 %; MEAN CORPUSCULAR HEMOGLOBIN 28.1 pg (27.0-31.0); MEAN CORPUSCULAR VOLUME 90.8 fL (80.0-94.0); MEAN PLATELET VOLUME 7.8 fL (7.4-11.4); MONOCYTES # (AUTO) 0.8 10^3/uL (0.0-1.0); MONOCYTES % (AUTO) 8.6 %; NEUTROPHILS # (AUTO) 5.7 10^3/uL (1.5-6.6); PLT - PLATELET COUNT 515 10^3/uL (130-450); RED BLOOD COUNT 3.82 10^6/uL (4.70-6.10); RED CELL DISTRIBUTION WIDTH 17.5 % (12.0-15.0); WHITE BLOOD COUNT 9.7 x10^3/uL (4.8-10.8)
[2019-01-16 12:02] LABS: ALBUMIN 3.4 g/dL (3.2-5.5); ALBUMIN/GLOBULIN RATIO 1.1 (1.0-2.2); BILIRUBIN,TOTAL 0.6 mg/dL (0.2-1.0); CREATININE 0.6 mg/dL (0.6-1.2); TOTAL PROTEIN 6.6 g/dL (6.7-8.2)
== END 2019-01-16 11:09 | disposition home or self-care (01) ==
LOC: LAB 11:08
PROVIDERS: ATTEND Surgery
DX: C15.5 Malignant neoplasm of lower third of esophagus (principal)
CPT/HCPCS: 36415; 80053; 85025

== ENCOUNTER 2019-01-28 11:23 | Outpatient (CLI) | payer MEDICARE, OTHER ==
[2019-01-28 11:40] LABS: BASOPHILS # (AUTO) 0.1 10^3/uL (0.0-0.1); BASOPHILS % (AUTO) 0.6 %; EOSINOPHILS # (AUTO) 0.6 10^3/uL (0.0-0.7); EOSINOPHILS % (AUTO) 5.9 %; HGB - HEMOGLOBIN 11.2 g/dL (14.0-18.0); LYMPHOCYTES # (AUTO) 2.5 10^3/uL (1.5-3.5); LYMPHOCYTES % (AUTO) 24.6 %; MEAN CORPUSCULAR HEMOGLOBIN 28.1 pg (27.0-31.0); MEAN CORPUSCULAR HGB CONC 31.8 g/dL (32.0-36.0); MEAN CORPUSCULAR VOLUME 88.4 fL (80.0-94.0); MEAN PLATELET VOLUME 7.7 fL (7.4-11.4); MONOCYTES # (AUTO) 0.9 10^3/uL (0.0-1.0); MONOCYTES % (AUTO) 8.7 %; NEUTROPHILS % (AUTO) 60.2 %; PLT - PLATELET COUNT 256 10^3/uL (130-450); RED BLOOD COUNT 3.98 10^6/uL (4.70-6.10); RED CELL DISTRIBUTION WIDTH 16.9 % (12.0-15.0)
[2019-01-28 11:52] LABS: ALBUMIN 3.6 g/dL (3.2-5.5); ALBUMIN/GLOBULIN RATIO 1.1 (1.0-2.2); BILIRUBIN,TOTAL 0.7 mg/dL (0.2-1.0); CALCIUM 9.2 mg/dL (8.5-10.3); CREATININE 0.8 mg/dL (0.6-1.2); TOTAL PROTEIN 6.8 g/dL (6.7-8.2)
== END 2019-01-28 11:24 | disposition home or self-care (01) ==
LOC: LAB 11:23
PROVIDERS: ATTEND Nurse Practitioner
DX: C15.5 Malignant neoplasm of lower third of esophagus (principal); R79.89 Other specified abnormal findings of blood chemistry
CPT/HCPCS: 36415; 80053; 85025

== ENCOUNTER 2019-02-02 12:35 | Outpatient (CLI) | payer MEDICARE, OTHER ==
[2019-02-02 13:06] LABS: PHOSPHORUS 3.5 mg/dL (2.5-4.6)
== END 2019-02-02 12:36 | disposition home or self-care (01) ==
LOC: LAB 12:35
PROVIDERS: ATTEND Nurse Practitioner
DX: C15.5 Malignant neoplasm of lower third of esophagus (principal); R79.89 Other specified abnormal findings of blood chemistry
CPT/HCPCS: 83735; 84100

== ENCOUNTER 2019-04-15 10:47 | Outpatient (CLI) | payer MEDICARE, OTHER ==
[2019-04-15 18:43] LABS: BASOPHILS % (AUTO) 0.4 %; EOSINOPHILS # (AUTO) 0.2 10^3/uL (0.0-0.7); EOSINOPHILS % (AUTO) 4.3 %; HGB - HEMOGLOBIN 10.8 g/dL (14.0-18.0); LYMPHOCYTES # (AUTO) 1.9 10^3/uL (1.5-3.5); LYMPHOCYTES % (AUTO) 36.2 %; MEAN CORPUSCULAR HEMOGLOBIN 27.3 pg (27.0-31.0); MEAN CORPUSCULAR HGB CONC 30.3 g/dL (32.0-36.0); MEAN CORPUSCULAR VOLUME 90.1 fL (80.0-94.0); MEAN PLATELET VOLUME 11.2 fL (7.4-11.4); MONOCYTES # (AUTO) 0.6 10^3/uL (0.0-1.0); MONOCYTES % (AUTO) 11.6 %; NEUTROPHILS # (AUTO) 2.5 10^3/uL (1.5-6.6); NEUTROPHILS % (AUTO) 47.3 %; PLT - PLATELET COUNT 231 10^3/uL (130-450); RED BLOOD COUNT 3.95 10^6/uL (4.70-6.10); RED CELL DISTRIBUTION WIDTH 20.7 % (12.0-15.0); WHITE BLOOD COUNT 5.3 x10^3/uL (4.8-10.8)
[2019-04-15 18:55] LABS: INR 1.5 (0.8-1.2); PT - PROTHROMBIN TIME 16.9 secs (9.9-12.6)
[2019-04-15 19:06] LABS: ALBUMIN 3.4 g/dL (3.2-5.5); ALBUMIN/GLOBULIN RATIO 1.2 (1.0-2.2); BILIRUBIN,TOTAL 0.8 mg/dL (0.2-1.0); CALCIUM 8.9 mg/dL (8.5-10.3); CREATININE 0.7 mg/dL (0.6-1.2); TOTAL PROTEIN 6.2 g/dL (6.7-8.2)
[2019-04-15 19:20] LABS: PLATELET ESTIMATE, MANUAL NORMAL (130-450,000) (NORMAL); PLATELET MORPHOLOGY NORMAL APPEARANCE (NORMAL)
== END 2019-04-15 10:48 | disposition home or self-care (01) ==
LOC: LAB.WCP 10:47
PROVIDERS: ATTEND Family Medicine
DX: C15.9 Malignant neoplasm of esophagus, unspecified (principal); C82.90 Follicular lymphoma, unspecified, unspecified site
CPT/HCPCS: 36415; 80053; 85025; 85610; 85730

== ENCOUNTER 2019-04-17 10:01 | Outpatient (CLI) | payer MEDICARE, OTHER ==
--- NOTE | 2019-04-22 08:12 | DEXA Report ---
Reason: OSTEOPOROSIS Procedure Date: 04/17/2019 Accession Number: [id number] / [id number] Procedure: DEX - Dexa Spine and/or Hip CPT Code: FULL RESULT: EXAM: Dexa Spine and/or Hip DATE: 04/17/2019 10:46 AM CLINICAL HISTORY: OSTEOPOROSIS TECHNIQUE: Dual energy x-ray absorptiometry (DXA) was performed on a [employer] System. Regions measured are the AP Spine, femoral neck, and if needed forearm. COMPARISON: 03/24/2018. In accordance with the International Society for Clinical Densitometry (ISCD) guidelines, data from previous exams may be reanalyzed using current recommendations and techniques. This is done to allow a more accurate basis for comparison with the current study. FINDINGS: The data for the lumbar spine is as follows: BMD (g/cm/cm) T-SCORE Z-SCORE REGION L1 1.415 2.1 2.9 L2 1.416 1.5 2.2 L3 1.311 0.6 1.3 L4 1.190 -0.4 0.3 TOTAL 1.323 0.9 1.6 NOTE: All evaluable vertebrae are used for classification The data for the hip is as follows: BMD (g/cm/cm) T-SCORE Z-SCORE REGION Neck 0.629 -3.4 -1.8 TOTAL 0.690 -2.9 -1.7 NOTE: The femoral neck or total proximal femur, whichever is lowest, is used for classification. DXA RESULTS SUMMARY: Spine SCAN DATE AGE BMD CHANGE VS CHANGE VS PREVIOUS PREVIOUS % [birth year]17/2019 [age] 1.295 0.010 0.8 03/24/2018 77.4 1.285 * Denotes significant change at the 95% confidence level. Denotes dissimilar scan types or analysis methods. DXA RESULTS SUMMARY: Hip SCAN DATE AGE BMD CHANGE VS CHANGE VS PREVIOUS PREVIOUS % [birth year]/2019 78.4 0.690 0.015 2.2 03/24/2018 77.4 0.675 * Denotes significant change at the 95% confidence level. Denotes dissimilar scan types or analysis methods. IMPRESSION: THE WHO CLASSIFICATION BASED ON THE INTERNATIONAL REFERENCE STANDARD IS NORMAL. THE FRACTURE RISK IS NOT INCREASED. RECOMMENDATION: Patients with diagnosis of osteoporosis or osteopenia should have regular bone mineral density assessment. For those eligible for Medicare, routine testing is allowed once every 2 years. Testing frequency can be increased for patients who have rapidly progressing disease or for those who are receiving medical therapy to restore bone mass. COMMENT: World Health Organization (WHO) definitions for osteoporosis and osteopenia: NORMAL BMD: T-score at -1.0 or higher, fracture risk is low OSTEOPENIA BMD: T-score between -1.0 and -2.5, fracture risk is increased. OSTEOPOROSIS BMD: T-score at -2.5 or lower, fracture risk is high. National Osteoporosis Foundation recommends: 1. Obtain adequate dietary calcium (at least 1200 mg per day) and vitamin D (400-800 international units per day). 2. Participate, as appropriate, in regular weightbearing and muscle-strengthening exercise. 3. Avoid tobacco use and reduce alcohol and caffeine intake. 4. For more detailed information see the website at www.NOF.org.
== END 2019-04-17 10:02 | disposition home or self-care (01) ==
LOC: DI 10:01
PROVIDERS: ATTEND Family Medicine
DX: M81.0 Age-related osteoporosis without current pathological fracture (principal)
CPT/HCPCS: 77080

== ENCOUNTER 2019-04-20 15:03 | Outpatient (CLI) | payer MEDICARE, OTHER | END 2019-04-21 15:04 | disposition critical access hospital (66) | LOC: EMS 15:03 | PROVIDERS: ATTEND Surgery | DX: R13.10 Dysphagia, unspecified (principal); R47.81 Slurred speech; R29.810 Facial weakness | CPT/HCPCS: A0425; A0429 ==

== ENCOUNTER 2019-04-20 15:08 | Inpatient (IN) | payer MEDICARE, OTHER ==
--- NOTE | 2019-04-20 15:20 | ED Physician Documentation ---
PD HPI FOCAL NEURO - Stated complaint Stated Complaint: POS CVA - History obtained from History obtained from: Patient, EMS - History of Present Illness Timing - onset: How many minutes ago (45) Timing - duration: Minutes (45) Timing - details: Abrupt onset Severity of deficit: Moderate Weakness: Face, Hand, Left Numbness: No: Face, Arm, Hand, Leg, Foot, Right, Left, Other Associated symptoms: No: Headache, Nausea / vomiting, Seizure, Syncope, Fall, Head injury, Chest pain, Neck pain, Back pain, Fever Contributing factors: positive: Anticoagulated (stopped xarelto 2 days ago for a planned procedure this week. (kyphoplasty)), Atrial fibrillation Baseline status: positive: A&OX3, ambulatory, indep Similar symptoms before: Has not had sx before Recently seen: Not recently seen Review of Systems Ten Systems: 10 systems reviewed and negative Constitutional: denies: Fever, Chills Throat: denies: Sore throat Cardiac: denies: Chest pain / pressure Respiratory: denies: Cough GI: denies: Nausea, Vomiting, Diarrhea Skin: denies: Rash Musculoskeletal: denies: Neck pain, Back pain Neurologic: denies: Confused, Altered mental status, Headache, Head injury, LOC PD PAST MEDICAL HISTORY - Past Medical History Cardiovascular: Hypertension, High cholesterol, Atrial fibrillation Respiratory: None Endocrine/Autoimmune: None GI: GERD, Diverticulitis, Other : None HEENT: None Psych: None Musculoskeletal: Chronic back pain, Other Derm: None - Past Surgical History Past Surgical History: Yes General: Cholecystectomy Ortho: Arthroscopic surgery Cardiovascular: Other Derm: Skin cancer surgery, Other - Present Medications Home Medications: Ambulatory Orders Medication Instructions Recorded Confirmed Acyclovir 400 mg PO DAILY 12/12/17 04/20/19 Biotin 5,000 mcg PO DAILY 12/12/17 04/23/18 Ceramides 1,3,6-11 [Cerave] 1 bottle TOP DAILY 12/12/17 04/23/18 Cyanocobalamin (Vitamin B-12) 5,000 mcg PO DAILY 12/12/17 04/20/19 [Vitamin B-12] Fluticasone [Flonase] 1 spray NS DAILY 12/12/17 04/23/18 Metoprolol Tartrate [Lopressor] 12.5 mg PO BID #14 tablet 12/12/17 04/20/19 Multivitamin/Iron/Folic Acid 1 tab PO DAILY 12/12/17 04/23/18 [Centrum Adults Tablet] Pantoprazole [Protonix] 40 mg PO DAILY 12/12/17 04/23/18 Psyllium Husk [Metamucil] 3 tsp PO DAILY 12/12/17 04/23/18 Rivaroxaban [Xarelto] 20 mg PO DAILY 12/12/17 04/20/19 traMADol [Ultram] 50 mg PO QID 12/12/17 04/23/18 Hydrocodone/Acetaminophen 15 ml PO Q6HR PRN #250 ml 06/14/18 [Hydrocodon-Acetamin 7.5-325/15] Metformin HCl 0 tab PO DAILY 06/14/18 04/20/19 Doxycycline Hyclate 100 mg PO 04/20/19 Omeprazole 20 mg PO BID 04/20/19 04/20/19 guaiFENesin [Mucinex] 0 tab PO DAILY 04/20/19 04/20/19 - Allergies Allergies/Adverse Reactions: Allergies Allergy/AdvReac Type Severity Reaction Status Date / Time morphine AdvReac Hallucinati Verified 04/20/19 15:38 ons - Social History Does the pt smoke?: No Smoking Status: Never smoker Does the pt drink ETOH?: Yes Does the pt have substance abuse?: No - Immunizations Immunizations are current?: No - POLST Patient has POLST: Yes PD ED PE NORMAL - Vitals Vital signs reviewed: Yes - General General: Alert and oriented X 3, No acute distress, Well developed/nourished - HEENT HEENT: Moist mucous membranes - Neck Neck: Supple, no meningeal sign - Cardiac Cardiac: RRR, Strong equal pulses - Respiratory Respiratory: No respiratory distress, Clear bilaterally - Abdomen Abdomen: Soft, Non tender, Non distended - Back Back: No CVA TTP, No spinal TTP - Derm Derm: Warm and dry - Extremities Extremities: No edema - Neuro Neuro: Alert and oriented X 3 - Psych Psych: Normal mood, Normal affect NIHSS - Time Time: 15:12 - Level of Consciousness Level of consciousness: (0) Alert, Keenly responsive LOC Questions: (0) Answers both Q's correct LOC Commands: (0) Performs both correctly - Gaze Best Gaze: (0) Normal - Visual Visual: (0) No loss - Facial Palsy Facial Palsy: (2) Partial paralysis - Motor Arms (both separate) Motor Arm (right): (0) No drift Motor Arm (left): (1) Drift - Motor Legs (both separate) Motor Leg (right): (0) No drift Motor Leg (left): (0) No drift - Limb Ataxia Limb Ataxia: (0) Absent - Sensory Sensory: (0) Normal - Best Language Best Language: (0) No aphasia - Dysarthria Dysarthria: (1) Khyd-lu-hserxzvt dysarthria - Extinction and Inattention (formally neg Extinction and inattention: (0) No abnormality - Total Score/Results Total Score/Result: 4 Results - Vitals Vitals: Vital Signs - 24 hr 04/20/19 04/20/19 04/20/19 15:06 15:25 15:55 Temperature 36 C L Heart Rate 81 67 67 Respiratory 25 H 26 H 17 Rate Blood Pressure 142/95 H 132/82 H 127/94 H O2 Saturation 100 100 99 04/20/19 04/20/19 04/20/19 16:29 16:30 17:00 Temperature Heart Rate 63 64 71 Respiratory 20 25 H 20 Rate Blood Pressure 130/97 H 119/92 H 132/72 H O2 Saturation 98 97 98 Oxygen O2 Source Room air - EKG (time done) 1530 Rate: Rate (enter#) (75) Rhythm: Atrial fibrillation [place]: Normal QRS: Normal Ischemia: Normal ST segments - Labs Labs: Laboratory Tests 04/20/19 04/20/19 04/20/19 15:44 15:44 15:44 WBC 6.4 RBC 3.78 L Hgb 10.2 L Hct 33.9 L MCV 89.7 MCH 27.0 MCHC 30.1 L RDW 20.3 H Plt Count 245 MPV 10.4 Neut # (Auto) 3.0 Lymph # (Auto) 2.5 Motley # (Auto) 0.7 Eos # (Auto) 0.2 Baso # (Auto) 0.0 Absolute Nucleated RBC 0.00 Nucleated RBC % 0.0 Manual Slide Review Indicated WBC Morphology NORMAL APPEARANCE Platelet Estimate NORMAL (130-450,000) Platelet Morphology NORMAL APPEARANCE RBC Morph Micro Appear 2+ HYPOCHROMASIA PT 12.7 H INR 1.1 APTT 24.5 L Anti-Xa Level 0.0 Sodium 143 Potassium 3.6 Chloride 107 Carbon Dioxide 23 Anion Gap 13.0 BUN 21 H Creatinine 0.7 Estimated GFR (MDRD) 109 Glucose 86 Calcium 9.0 Total Bilirubin 0.7 AST 24 ALT 13 Alkaline Phosphatase 83 Total Protein 6.1 L Albumin 3.5 Globulin 2.6 Albumin/Globulin Ratio 1.3 Lipase 18 L - Rads (name of study) head CT Radiology: Prelim report reviewed, EMP read contemporaneously, See rad report (Normal head CT. ) head CTA Radiology: Prelim report reviewed, EMP read contemporaneously, See rad report (Large vessel occlusion of the proximal right MCA temporal M2 segment. ) neck CTA Radiology: Prelim report reviewed, EMP read contemporaneously, See rad report (Carotid and vertebral arteries are patent without significant stenosis or dissection) PD MEDICAL DECISION MAKING - ED course Complexity details: reviewed results, re-evaluated patient, considered differential, d/w patient, d/w business consultant (Dr. Amrit Naylor ([id number])) ED course: 78-year-old male presents the emergency department with a left-sided facial droop dysarthria and difficulty using the left hand. The symptoms are improving while in the bed upon arrival, tele-neurology was consulted for tele-stroke. Dr. Naylor (neuro) saw the patient via video and does not recommend TPA given the improving symptoms and Xarelto being stopped less than [address] angiogram of the head and neck was then recommended. This was performed and showed a proximal right MCA M2 segment occlusion. Recontacted neurology and they state that this would not be a candidate for IR. They recommend aspirin and medical therapy. Recommend admission to the hospital. Discussed the case with Dr. Mueller, who accepts. This document was made in part using voice recognition software. While efforts are made to proofread this document, sound alike and grammatical errors may occur. Departure - Departure Disposition: 66 [facility] DC/Xfer Clinical Impression: Cerebrovascular accident (CVA) Qualifiers: CVA mechanism: embolism Precerebral and cerebral artery: middle cerebral artery Laterality of affected vessel: right Qualified Code(s): I63.411 - Cerebral infarction due to embolism of right middle cerebral artery Condition: Stable Discharge Date/Time: 04/20/19 18:29
--- NOTE | 2019-04-20 15:40 | CT Report ---
Reason: L facial droop Procedure Date: 04/20/2019 Accession Number: [id number] / [id number] Procedure: CT - Head W/O Stroke Protocol CPT Code: FULL RESULT: EXAM: CT HEAD EXAM DATE: 04/20/2019 03:25 PM. CLINICAL HISTORY: Left facial droop. COMPARISON: None. TECHNIQUE: Multiaxial CT images were obtained from the foramen magnum to the vertex. Reformats: Sagittal and coronal. IV contrast: None. In accordance with CT protocol optimization, one or more of the following dose reduction techniques were utilized for this exam: automated exposure control, adjustment of mA and/or KV based on patient size, or use of iterative reconstructive technique. FINDINGS: Parenchyma: No intraparenchymal hemorrhage. No evidence of mass, midline shift, or CT findings of acute infarction. Caballero-white differentiation is distinct. Extraaxial Spaces: Normal for age. No subdural or epidural collections identified. Ventricles: Normal in size and position. Sinuses and Orbits: Imaged paranasal sinuses, orbits, and mastoids show no significant abnormality. Bones: No evidence of fracture or calvarial defect. Other: None. IMPRESSION: Normal head CT. RADIA The critical test notification system was initiated by Dr. Oscar Edouard at 03:39 PM on 04/20/2019. ADDENDUM: 04/20/19 15:41 The above critical test findings were discussed with Nolberto Srivastava by Dr. Oscar Edouard at 03:41 PM on 04/20/2019.
[2019-04-20 15:50] LABS: BASOPHILS % (AUTO) 0.5 %; EOSINOPHILS # (AUTO) 0.2 10^3/uL (0.0-0.7); HGB - HEMOGLOBIN 10.2 g/dL (14.0-18.0); LYMPHOCYTES # (AUTO) 2.5 10^3/uL (1.5-3.5); LYMPHOCYTES % (AUTO) 38.4 %; MEAN CORPUSCULAR HGB CONC 30.1 g/dL (32.0-36.0); MEAN CORPUSCULAR VOLUME 89.7 fL (80.0-94.0); MEAN PLATELET VOLUME 10.4 fL (7.4-11.4); MONOCYTES # (AUTO) 0.7 10^3/uL (0.0-1.0); MONOCYTES % (AUTO) 10.8 %; NEUTROPHILS % (AUTO) 47.1 %; PLT - PLATELET COUNT 245 10^3/uL (130-450); RED BLOOD COUNT 3.78 10^6/uL (4.70-6.10); RED CELL DISTRIBUTION WIDTH 20.3 % (12.0-15.0); WHITE BLOOD COUNT 6.4 x10^3/uL (4.8-10.8)
[2019-04-20 15:58] LABS: INR 1.1 (0.8-1.2); PT - PROTHROMBIN TIME 12.7 secs (9.9-12.6)
[2019-04-20 16:01] LABS: ALBUMIN 3.5 g/dL (3.2-5.5); ALBUMIN/GLOBULIN RATIO 1.3 (1.0-2.2); BILIRUBIN,TOTAL 0.7 mg/dL (0.2-1.0); CREATININE 0.7 mg/dL (0.6-1.2); TOTAL PROTEIN 6.1 g/dL (6.7-8.2)
[2019-04-20 16:02] LABS: PLATELET ESTIMATE, MANUAL NORMAL (130-450,000) (NORMAL); PLATELET MORPHOLOGY NORMAL APPEARANCE (NORMAL)
[2019-04-20 16:07] LABS: PARTIAL THROMBOPLASTIN TIME 24.5 secs (24.9-33.3)
[2019-04-20] MEDS ORDERED: IOVERSOL 320 100 ML VIAL IVP ONE ×2 (16:13→17:51)
--- NOTE | 2019-04-20 16:54 | CT Report ---
Reason: L sided facial droop Procedure Date: 04/20/2019 Accession Number: [id number] / [id number] Procedure: CT - ANGIO HEAD W/WO CPT Code: FULL RESULT: EXAM: CT ANGIOGRAM HEAD. CT SCAN OF THE HEAD WITHOUT AND WITH CONTRAST. EXAM DATE: 04/20/2019 04:27 PM CLINICAL HISTORY: 78-year-old man with left-sided facial droop. COMPARISON: HEAD W/O STROKE PROTOCOL 04/20/2019 3:23 PM. TECHNIQUE: - CT Scan Head: Using a multidetector scanner, axial images were acquired from the foramen magnum to the skull vertex prior to and following contrast administration. - CT Angiogram: Using a multidetector scanner, high-resolution axial images were acquired from the skull base through vertex following rapid infusion of intravenous contrast. Reformats: Multiplanar MIP reformats were reconstructed. Nascet criteria used for stenosis measurement. IV Contrast: OPTI 320 80ML. In accordance with CT protocol optimization, one or more of the following dose reduction techniques were utilized for this exam: automated exposure control, adjustment of mA and/or KV based on patient size, or use of iterative reconstructive technique. FINDINGS: CTA HEAD: RIGHT: - Visualized Internal Carotid: Patent without significant stenosis or aneurysm. There is mild atherosclerotic plaque along the siphon. - Anterior Cerebral: Patent without significant stenosis or aneurysm. - Middle Cerebral: The M1 segment is patent. There is focal occlusion of a proximal M2 temporal trunk (image 105, series 10). - Posterior Cerebral: Patent without significant stenosis or aneurysm. - Posterior Communicating: Not well seen. - Visualized Vertebral: Patent without significant stenosis or dissection. The right vertebral artery is dominant. LEFT: - Visualized Internal Carotid: Patent without significant stenosis or aneurysm. There is mild atherosclerotic plaque along the siphon. - Anterior Cerebral: Patent without significant stenosis or aneurysm. - Middle Cerebral: Patent without significant stenosis or aneurysm. - Posterior Cerebral: Patent without significant stenosis or aneurysm. The artery is primarily supplied by the posterior communicating artery, but there is a small, patent P1 segment. - Posterior Communicating: Patent. No aneurysm. - Visualized Vertebral: Patent without significant stenosis or dissection. CENTRAL: - Anterior Communicating: Patent. No aneurysm. - Basilar: Patent without significant stenosis, dissection, or aneurysm. Dural Venous Sinuses and Major Central Veins: Patent. POSTCONTRAST HEAD: No abnormal enhancement. IMPRESSION: 1. Large vessel occlusion of the proximal right MCA temporal M2 segment. RADIA The call report notification system was initiated by Dr. Ever Alvarez at 04:49 PM on 04/20/2019. The above call report findings were discussed with Nolberto Srivastava by Dr. Ever Alvarez at 04:51 PM on 04/20/2019.
[2019-04-20] MEDS ORDERED: ASPIRIN 325 MG TABLET PO STA (16:55)
--- NOTE | 2019-04-20 17:00 | CT Report ---
Reason: L sided facial droop Procedure Date: 04/20/2019 Accession Number: [id number] / [id number] Procedure: CT - ANGIO NECK W CPT Code: FULL RESULT: EXAM: CT ANGIOGRAM NECK EXAM DATE: 04/20/2019 04:27 PM. CLINICAL HISTORY: 78-year-old man with left facial droop. COMPARISON: HEAD W/O STROKE PROTOCOL 04/20/2019 3:23 PM. TECHNIQUE: Routine axial helical imaging was performed from the skull base through the aortic arch. Reconstructions: Routine multiplanar 3D MIP reconstructions. IV Contrast: OPTI 320 80ML. Evaluation of arterial stenosis is based on a NASCET method of measurement. In accordance with CT protocol optimization, one or more of the following dose reduction techniques were utilized for this exam: automated exposure control, adjustment of mA and/or KV based on patient size, or use of iterative reconstructive technique. FINDINGS: RIGHT: - Common and Internal Carotid: Patent without signficant stenosis. No evidence of atherosclerotic plaque at the siphon. Stenosis by NASCET criteria: 0%. No evidence of dissection. - External Carotid: Unremarkable. - Vertebral: Patent without significant stenosis. No evidence of dissection. The right vertebral artery is dominant. LEFT: - Common and Internal Carotid: Patent without signficant stenosis. There is Mild calcified atherosclerotic plaque at the bifurcation and along the siphon. Stenosis by NASCET criteria: 0%. No evidence of dissection. No evidence of aneurysm along intracranial ICA. - External Carotid: Unremarkable. - Vertebral: Patent without focal stenosis, but the artery is diffusely small in caliber, consistent with congenital nondominance. No evidence of dissection. SOFT TISSUES AND BONES: Post surgical changes are present in the mediastinum along the esophagus, presumably reflecting prior esophagectomy. Soft tissues of the neck are unremarkable. Lung apices are clear. No evidence of acute fracture or malalignment of the cervical spine, but methylmethacrylate is present in the T4 vertebral body, consistent with prior vertebral augmentation. Multilevel degenerative changes of the cervical spine are demonstrated. IMPRESSION: 1. Carotid and vertebral arteries are patent without significant stenosis or dissection. RADIA
[2019-04-20] MEDS ORDERED: SODIUM CHLORIDE FLUSH 0.9% 10 ML SYRINGE IVP PRN (17:27)
--- NOTE | 2019-04-20 17:30 | HISTORY & PHYSICAL EXAMINATION ---
Chief Complaint - Chief Complaint Chief Complaint: facial droop, slurred speech History of Present Illness - Admitted From Admitted From:: ED - History Obtained From Records Reviewed: yes History obtained from: chart review, patient Exam Limitations: none - History of Present Illness HPI Comment/Other: Dell De Luna (Neal) is an 78-year old with a past medical history hypertension, atrial fibrillation on Xarelto, hyperlipidemia, hypokalemia, osteoporosis, bone disease, T5 compression fracture, hyperglycemia, chronic back pain, esophageal cancer, status post esophageal resection, nodular lymphoma, elevated LFTs, recent pneumonia, pulmonary fibrosis from prior radiation, PEG tube and removal about one month ago, GERD, diverticulitis, and skin cancer. The patient presented to the ED via EMS since having an acute onset of left facial droop, slurred speech and difficulty walking. He just stopped his Xarelto 2 days ago for an upcoming laminectomy of T5 at [facility], [place]. His explained that yesterday he did more activity than usual and was outside doing yard work. He felt his usual self, awoke this morning also feeling normal and this event began around 2PM today when EMS was called. Imaging showed a MCA occlusive stroke on the right. Labs show a normal WBC count of 6.4, H/H of 10.2/33.9, BUN of 21, with no other lab abnormalities. On my exam the patient has profound slurred speech and word finding difficulties. He has a mild left arm drift with a left hand weakened laminator hand. BLEs are equal. He denies cough, chest pain, shortness of breath, nausea, vomiting, or dizziness. With the imaging finding on imaging of an MCA right stroke, and his physical findings that match, he has been admitted to inpatient. History - Past Medical History Cardiovascular: reports: Hypertension, High cholesterol, Coronary artery disease, Atrial fibrillation, Arrhythmia Respiratory: reports: Pneumonia, Other (pulmonary fibrosis) Neuro: reports: None Endocrine/Autoimmune: reports: Other (hyperglycemia) GI: reports: GERD, Chronic diarrhea, Diverticulitis [employer]: reports: None : reports: Benign prostate hypertrophy, Nocturia HEENT: reports: Chronic vision loss Psych: reports: Depression Musculoskeletal: reports: Osteoarthritis, Fatigue, Chronic back pain, Other Derm: reports: None MRSA Hx?: No Other Past Medical History: chronic hypokalemia, rectal bleeding, nodular lymphoma, abnormal LFTs, hyperglycemia, vertebral compression fracture (T5) - Past Surgical History General: reports: Cholecystectomy, Gastric surgery, EGD, Other (esophageal resection) Ortho: reports: Arthroscopic surgery Cardiovascular: reports: Other Derm: reports: Skin cancer surgery, Other - Family & Social History Family History: Mother: , Cancer, Father: , Brother: , CAD Family History Comment/Other: Mother: had breast cancer. Father: fractured hip, cardiac arrest at age 73. Brother: sudden cardiac arrest at age 52 Living arrangement: At home Living Situation: With spouse/s.o. 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 He has 2 grown children, retired in 2007, [place] the [place]. He met his current shortly after getting to the [place]. He is to his 2nd , [address]. He denies the use of tobacco, alcohol or illicit drug use. Upon admission, the patient wishes to be a FULL code, but would like to re-explore this topic. - Substance History Use: Uses substance without health or social issues: NONE Abuse: Recurrent use of substance despite neg consequences: NONE Dependence: Experiences withdrawal or developed tolerances: NONE - POLST Patient has POLST: No POLST Status: Full Code Meds/Allgy - Home Medications Home Medications: Ambulatory Orders Medication Instructions Recorded Confirmed Acyclovir 400 mg PO DAILY 12/12/17 04/21/19 Biotin 5,000 mcg PO DAILY 12/12/17 04/21/19 Ceramides 1,3,6-11 [Cerave] 1 applic TOP DAILY 12/12/17 04/21/19 Cyanocobalamin (Vitamin B-12) 5,000 mcg PO DAILY MDD holding for 12/12/1704/21 [Vitamin B-12] procedure Fluticasone [Flonase] 1 spray NS DAILY 12/12/17 04/21/19 Metoprolol Tartrate [Lopressor] 12.5 mg PO BID #14 tablet 12/12/17 04/21/19 Rivaroxaban [Xarelto] 20 mg PO DAILY 12/12/17 04/21/19 Metformin HCl 500 mg PO DAILY 06/14/18 04/21/19 Doxycycline Hyclate 100 mg PO BID PRN 04/20/19 04/21/19 Omeprazole 20 mg PO BID 04/20/19 04/21/19 Acetaminophen 1,000 mg PO DAILY 04/21/19 04/21/19 Benzonatate 100 mg PO DAILY PRN 04/21/19 04/21/19 Fluticasone/Salmeterol [Advair Hfa 2 puffs INH DAILY 04/21/19 04/21/19 115-21 Mcg Inhaler] Guaifenesin [Mucinex] 600 mg PO DAILY 04/21/19 04/21/19 Loperamide [Imodium] 4 mg PO DAILY PRN 04/21/19 04/21/19 - Allergies Allergies/Adverse Reactions: Allergies Allergy/AdvReac Type Severity Reaction Status Date / Time morphine AdvReac Hallucinati Verified 04/20/19 15:38 ons Review of Systems - Constitutional Constitutional: reports: Fatigue, Weakness - Eyes Eyes: reports: Vision loss, Corrective lenses - Ears, Nose & Throat Ears, Nose & Throat: reports: Hearing loss (minimal) - Cardiovascular Cariovascular: reports: Lightheadedness - Gastrointestinal Gastrointestinal: reports: Abdominal distention, Diarrhea, Nausea, Reflux/h eartburn, Bloating, Poor appetite - Genitourinary Genitourinary: reports: Urgency, Nocturia - Musculoskeletal Musculoskeletal: reports: Back pain, Muscle aches, Limited range of motion, Muscle weakness, Joint pain, Joint swelling - Integumentary Integumentary: reports: Rash (lesions to anterior scalp), Dryness - Neurological Neurological: reports: General weakness, Focal weakness (LUE, weaker hand laminator hand to left, also with left arm drift- slight), Dizziness, Numbness, Memory problems, Abnormal gait, Incoordination, Slurred speech - Psychiatric Psychiatric: reports: Depression - Hematologic/Lymphatic Hematologic/Lymphatic: reports: Anemia, Recurrent infections - All Other Systems All Other Systems: reports: Reviewed and negative Prior Level of Functionality: Very functional, exercises each day for greater than one hour, works in the yard, drives, and no recent falls. Does not use a walker at home. Exam - Vital Signs Reviewed Vital Signs: Yes Vital Signs: Vital Signs x48h Temp Pulse Resp BP Pulse Ox 04/20/19 17:00 71 20 132/72 H 98 04/20/19 16:30 64 25 H 119/92 H 97 04/20/19 16:29 63 20 130/97 H 98 04/20/19 15:55 67 17 127/94 H 99 04/20/19 15:25 67 26 H 132/82 H 100 04/20/19 15:06 36 C L 81 25 H 142/95 H 100 - Physical Exam General Appearance: positive: Alert, Mild distress Eyes Bilateral: positive: PERRL, No lid inflammation ENT: positive: Pharynx nml, Dry mucous membranes Neck: positive: No JVD, Trachea midline, Stiff neck Respiratory: positive: Chest non-tender, No respiratory distress, Other (coarse crackles) Cardiovascular: positive: No gallop, Irregularly irregular, Bradycardia, Diastolic murmur, Decreased pulse(s) Peripheral Pulses: positive: 1+ Abdomen: positive: Non-tender, Abnml bowel sounds (hyperactive) Back: positive: Nml inspection Skin: positive: No rash, Warm, Dry, Pallor Extremities: positive: Non-tender, Full ROM, Nml appearance, No pedal edema Neurologic/Psychiatric: positive: Oriented x3, Weakness, Sensory loss, Facial droop (left- profound even with smiling), Slurred/abnml speech (new on this admission, word finding problems), Depressed mood/affect, Other (ataxia, difficulty walking independently- now 2 assist) Reflexes: Bicep (R): 3+, Bicep (L): 1+, Ankle (R): 3+, Ankle (L): 3+ Conclusion/Plan - Problem List (1) Cerebrovascular accident (CVA) Conclusion/Plan: - imaging shows; Large vessel occlusion of the proximal right MCA temporal M2 segment. - Slurred speech, left facial droop, slight left arm drift, weakened hand laminator hand to the left Plan: Admit to inpatient, PT/OT, ST, and echo in the AM Qualifiers: CVA mechanism: embolism Precerebral and cerebral artery: middle cerebral artery Laterality of affected vessel: right Qualified Code(s): I63.411 - Cerebral infarction due to embolism of right middle cerebral artery (2) Esophageal cancer Conclusion/Plan: - Status post esophageal resection - PEG was removed one month ago, patient tolerating soft foods, liquids Plan: Ordering speech (3) Facial droop Conclusion/Plan: - This is a new symptom and is apparent on exam - Also with slurred speech Plan: Continue to treat for CVA (4) Atrial fibrillation Conclusion/Plan: - Chronic, patient states that he has an enlarged LA - Rate controlled with BB - Chronic anticoagulation with Xarelto Plan: Await echo results, watch on telemetry, resume Xarelto in 48 hours, start full dose ASA, hold BB to allow for passive HTN (5) Anemia Conclusion/Plan: - Anemia of chronic disease, H/H is currently 10.2/33.9 Plan: Obtain iron studies, trend labs (6) Chronic cough Conclusion/Plan: - Takes tessalon pearls at home, and the patient states it is related to his lung condition - Denies cough during this acute event Plan: Continue home meds, monitor for worsening (7) BPH (benign prostatic hyperplasia) Conclusion/Plan: - Patient states that he gets up at least 3 times each night to urinate - Status post TURP several years ago Plan: Offer urinal, monitor I/O (8) Status post recent transurethral resection of prostate Conclusion/Plan: - Previous history of BPH - Several years ago, he states he had a TURP, but continues to get up at least 3 times per night Plan: Continue to monitor (9) Personal history of lymphoma Conclusion/Plan: - Past medical history notes nodular - Most recently had esophageal cancer which is considered to be in remission Plan: Continue to monitor - Lab Results Lab results reviewed: Yes Aleksander Bones: 04/21/19 05:35 04/21/19 05:35 - Diagnostic Imaging Results Diagnostic Imaging Results: positive: Final report reviewed Diagnostic Imaging Results Comments: EXAM: CT HEAD EXAM DATE: 04/20/2019 03:25 PM IMPRESSION: Normal head CT. EXAM: CT ANGIOGRAM NECK EXAM DATE: 04/20/2019 04:27 PM IMPRESSION: 1. Carotid and vertebral arteries are patent without significant stenosis or dissection. EXAM: CT ANGIOGRAM HEAD. CT SCAN OF THE HEAD WITHOUT AND WITH CONTRAST EXAM DATE: 04/20/2019 04:27 PM IMPRESSION: 1. Large vessel occlusion of the proximal right MCA temporal M2 segment. Core Measures - Anticipated LOS I expect patient to be DC'd or transferred within 96 hours.: Yes - DVT/VTE - Prophylaxis VTE/DVT Device ordered at admit?: Yes VTE/DVT Prophylaxis med ordered at admit?: Yes - Stroke - Rehab Assessment Rehab services assessment to be ordered?: Yes - AMI - Statin at Admit Aspirin Prescribed on Admit: Yes
[2019-04-20 17:57] LABS: BILIRUBIN,URINE NEGATIVE (NEGATIVE); GLUCOSE, URINE (UA) NEGATIVE (NEGATIVE); KETONES,URINE (UA) NEGATIVE (NEGATIVE); LEUKOCYTE ESTERASE, URINE NEGATIVE (NEGATIVE); NITRITE,URINE NEGATIVE (NEGATIVE); OCCULT BLOOD,URINE NEGATIVE (NEGATIVE); PH,URINE 5.5 PH (5.0-7.5); PROTEIN,URINE NEGATIVE (NEGATIVE); UROBILINOGEN,URINE 0.2 (NORMAL) E.U./dL (NORMAL)
[2019-04-20 18:01] LABS: CLARITY,URINE CLEAR (CLEAR)
[2019-04-20] MEDS: ATORVASTATIN 40 MG TABLET PO SCH (20:35)
[2019-04-20] MEDS ORDERED: CARBOXYMETHYLCELLULOSE OPHTH DROPS EACHEYE PRN (22:09)
[2019-04-20] MEDS: SODIUM CHLORIDE FLUSH 0.9% 10 ML SYRINGE IVP SCH (23:52)
[2019-04-21 06:02] LABS: BASOPHILS % (AUTO) 0.6 %; EOSINOPHILS # (AUTO) 0.3 10^3/uL (0.0-0.7); RED CELL DISTRIBUTION WIDTH 20.1 % (12.0-15.0)
[2019-04-21 06:08] LABS: EOSINOPHILS % (AUTO) 6.5 %; HGB - HEMOGLOBIN 9.1 g/dL (14.0-18.0); LYMPHOCYTES % (AUTO) 41.5 %; MEAN CORPUSCULAR HEMOGLOBIN 26.8 pg (27.0-31.0); MEAN CORPUSCULAR HGB CONC 30.6 g/dL (32.0-36.0); MEAN CORPUSCULAR VOLUME 87.6 fL (80.0-94.0); MEAN PLATELET VOLUME 10.3 fL (7.4-11.4); MONOCYTES # (AUTO) 0.6 10^3/uL (0.0-1.0); MONOCYTES % (AUTO) 12.9 %; NEUTROPHILS # (AUTO) 1.8 10^3/uL (1.5-6.6); NEUTROPHILS % (AUTO) 38.5 %; PLT - PLATELET COUNT 198 10^3/uL (130-450); RED BLOOD COUNT 3.39 10^6/uL (4.70-6.10); WHITE BLOOD COUNT 4.8 x10^3/uL (4.8-10.8)
[2019-04-21 06:15] LABS: ALBUMIN/GLOBULIN RATIO 1.4 (1.0-2.2); BILIRUBIN,TOTAL 0.6 mg/dL (0.2-1.0); CALCIUM 8.5 mg/dL (8.5-10.3); CREATININE 0.6 mg/dL (0.6-1.2); MAGNESIUM 1.8 mg/dL (1.7-2.8); TOTAL PROTEIN 5.2 g/dL (6.7-8.2)
[2019-04-21 06:31] LABS: PLATELET ESTIMATE, MANUAL NORMAL (130-450,000) (NORMAL); PLATELET MORPHOLOGY NORMAL APPEARANCE (NORMAL)
[2019-04-21 06:39] LABS: CHOLESTEROL 129 mg/dL; HDL CHOLESTEROL 32 mg/dL; LDL CHOLESTEROL,CALCULATED 80 mg/dL; LDL/HDL RATIO 2.5 (<3.6); VLDL CHOLESTEROL 17 mg/dL
[2019-04-21] MEDS: PANTOPRAZOLE 40 MG TABLET PO SCH (06:52)
[2019-04-21] MEDS ORDERED: POTASSIUM CHLORIDE 20 MEQ/15 ML UDC PO SCH (07:00)
[2019-04-21] MEDS: guaiFENesin 600 MG TABLET PO SCH (08:30)
[2019-04-21] MEDS: POLYETHYLENE GLYCOL 3350 17 GM PACKET PO SCH (08:30)
[2019-04-21] MEDS: ASPIRIN 325 MG TABLET PO SCH (08:30)
[2019-04-21] MEDS: SODIUM CHLORIDE FLUSH 0.9% 10 ML SYRINGE IVP SCH ×3 (08:31→23:40)
[2019-04-21] MEDS ORDERED: CYANOCOBALAMIN 500 MCG TABLET PO SCH (09:00)
[2019-04-21] MEDS ORDERED: SODIUM CHLORIDE 0.9% 1,000 ML IV SCH (11:00)
[2019-04-21] MEDS ORDERED: POTASSIUM CHLORIDE INJ 40 MEQ in SODIUM CHLORIDE 0.9% 480 ML IV ONE (11:00)
[2019-04-21] MEDS: RIVAROXABAN 10 MG TABLET PO SCH (13:47)
[2019-04-21] MEDS ORDERED: BENZONATATE 100 MG CAPSULE PO PRN (15:24)
[2019-04-21] MEDS ORDERED: LOPERAMIDE 2 MG CAPSULE PO PRN (15:24)
--- NOTE | 2019-04-21 16:54 | PROVIDER PROGRESS NOTE ---
Subjective - Prog Note Date Prog Note Date: 04/21/19 Prog Note Time: 16:54 - Subjective Pt reports feeling: Improved Subjective: Tommie denies any new symptoms and has had nearly a complete resolution of his symptoms. He denies chest pain, nausea, vomiting, a new rash, dizziness, or a new cough. Current Medications - Current Medications Current Medications: Active Medications: Acetaminophen (Tylenol) 1,000 mg PO DAILY YAW Aspirin (Lesa) 325 mg PO DAILYWM YAW Atorvastatin Calcium (Lipitor) 80 mg PO QPM YAW Benzonatate (Tessalon) 100 mg PO DAILY PRN Carboxymethylcellulose (Refresh 1% Ophth Drops) 1 drops EACHEYE DAILY PRN Fluticasone Propionate (Flonase) 1 sprays ANI DAILY YAW Guaifenesin (Mucinex) 600 mg PO DAILY YAW Loperamide HCl (Imodium) 4 mg PO DAILY PRN Non-Formulary Medication (Biotin [Biotin]) 5,000 mcg PO DAILY [facility] Non-Formulary Medication (Ceramides 1,3,6-11 [Cerave]) 1 applic TOP DAILY [facility] Pantoprazole Sodium (Protonix) 40 mg PO QDAC [facility] Polyethylene Glycol (Miralax) 17 gm PO DAILY YAW Rivaroxaban (Xarelto) 20 mg PO DAILY [facility] HOME meds: Acyclovir 400 mg PO DAILY 12/12/17 Biotin 5,000 mcg PO DAILY 12/12/17 Ceramides 1,3,6-11 [Cerave] 1 applic TOP DAILY 12/12/17 Cyanocobalamin (Vitamin B-12) [Vitamin B-12] 5,000 mcg PO DAILY MDD holding for procedure 12/12/17 Fluticasone [Flonase] 1 spray NS DAILY 12/12/17 Rivaroxaban [Xarelto] 20 mg PO DAILY 12/12/17 Metformin HCl 500 mg PO DAILY 06/14/18 Doxycycline Hyclate 100 mg PO BID PRN 04/20/19 Omeprazole 20 mg PO BID 04/20/19 Acetaminophen 1,000 mg PO DAILY 04/21/19 Benzonatate 100 mg PO DAILY PRN 04/21/19 Fluticasone/Salmeterol [Advair Hfa 115-21 Mcg Inhaler] 2 puffs INH DAILY 04/21/19 Guaifenesin [Mucinex] 600 mg PO DAILY 04/21/19 Loperamide [Imodium] 4 mg PO DAILY PRN 04/21/19 Objective - Vital Signs/Intake & Output Reviewed Vital Signs: Yes Vital Signs: Vital Signs x48h Temp Pulse Pulse Pulse Resp BP BP 04/21/19 16:00 36.3 C L 52 L 18 120/87 H 04/21/19 10:50 67 140/88 H 04/21/19 09:28 36.4 C L 67 16 Pulse Ox 04/21/19 16:00 95 04/21/19 10:50 04/21/19 09:28 97 Intake & Output: Intake & Output 04/18/19 04/19/19 04/20/19 04/21/19 23:59 23:59 23:59 23:59 Intake Total 120 1333.667 Output Total 300 275 Balance -180 1058.667 - Objective General Appearance: positive: No acute distress, Alert Eyes Bilateral: positive: PERRL ENT: positive: Pharynx nml, No signs of dehydration Neck: positive: Thyroid nml, No JVD, Trachea midline Respiratory: positive: Chest non-tender, No respiratory distress, Breath sounds nml Cardiovascular: positive: No gallop, Irregularly irregular, Systolic murmur, Decreased pulse(s) Peripheral Pulses: 1+ Radial (R), 1+ Radial (L) Abdomen: positive: Non-tender, Nml bowel sounds Back: positive: Nml inspection Skin: positive: Color nml, No rash, Warm, Dry Extremities: positive: Non-tender, Full ROM, Nml appearance, No pedal edema Neurologic/Psychiatric: positive: Oriented x3, CN's nml (2-12), Motor nml, Sensation nml, Weakness (left arm, only slight weakness), Facial droop (very mild), Slurred/abnml speech (intermittent, much improved) Reflexes: Bicep (R): 3+, Bicep (L): 2+, Ankle (R): 3+, Ankle (L): 3+ - Lab Results Fish Bones: 04/21/19 05:35 04/21/19 05:35 Other Labs: Lab Results x24hrs 04/21/19 04/21/19 04/21/19 Range/Units 05:35 05:35 05:35 WBC 4.8 (4.8-10.8) x10^3/uL RBC 3.39 L (4.70-6.10) 10^6/uL Hgb 9.1 L (14.0-18.0) g/dL Hct 29.7 L (42.0-52.0) % MCV 87.6 (80.0-94.0) fL MCH 26.8 L (27.0-31.0) pg MCHC 30.6 L (32.0-36.0) g/dL RDW 20.1 H (12.0-15.0) % Plt Count 198 (130-450) 10^3/uL MPV 10.3 (7.4-11.4) fL Neut # (Auto) 1.8 (1.5-6.6) 10^3/uL Lymph # (Auto) 2.0 (1.5-3.5) 10^3/uL [place] # (Auto) 0.6 (0.0-1.0) 10^3/uL Eos # (Auto) 0.3 (0.0-0.7) 10^3/uL Baso # (Auto) 0.0 (0.0-0.1) 10^3/uL Absolute Nucleated RBC 0.00 x10^3/uL Nucleated RBC % 0.0 /100WBC WBC Morphology NORMAL APPEARANCE (NORMAL) Platelet Estimate NORMAL (130-450,000) (NORMAL) Platelet Morphology NORMAL APPEARANCE (NORMAL) RBC Morph Micro Appear 1+ HYPOCHROMASIA (NORMAL) Sodium 144 (135-145) mmol/L Potassium 3.3 L (3.5-5.0) mmol/L Chloride 110 (101-111) mmol/L Carbon Dioxide 24 (21-32) mmol/L Anion Gap 10.0 (6-13) BUN 19 (6-20) mg/dL Creatinine 0.6 (0.6-1.2) mg/dL Estimated GFR (MDRD) 130 (>89) Glucose 90 (70-100) mg/dL Calcium 8.5 (8.5-10.3) mg/dL Magnesium 1.8 (1.7-2.8) mg/dL Total Bilirubin 0.6 (0.2-1.0) mg/dL AST 20 (10-42) IU/L ALT 11 (10-60) IU/L Alkaline Phosphatase 69 (42-121) IU/L Total Protein 5.2 L (6.7-8.2) g/dL Albumin 3.0 L (3.2-5.5) g/dL Globulin 2.2 (2.1-4.2) g/dL Albumin/Globulin Ratio 1.4 (1.0-2.2) Triglycerides 86 ( - 149) mg/dL Cholesterol 129 ( - 199) mg/dL LDL Cholesterol, Calc 80 ( - 129) mg/dL VLDL Cholesterol 17 mg/dL HDL Cholesterol 32 L (60 - ) mg/dL LDL/HDL Ratio 2.5 (<3.6) Cholesterol/HDL Ratio 4.0 (<5.0) Urine Color Urine Clarity (CLEAR) Urine pH (5.0-7.5) PH Ur Specific [place] (1.002-1.030) Urine Protein (NEGATIVE) mg/dL Urine Glucose (UA) (NEGATIVE) mg/dL Urine Ketones (NEGATIVE) mg/dL Urine Occult Blood (NEGATIVE) Urine Nitrite (NEGATIVE) Urine Bilirubin (NEGATIVE) Urine Urobilinogen (NORMAL) E.U./dL Ur Leukocyte Esterase (NEGATIVE) Ur Microscopic Review Urine Culture Comments 04/20/19 Range/Units 17:49 WBC (4.8-10.8) x10^3/uL RBC (4.70-6.10) 10^6/uL Hgb (14.0-18.0) g/dL Hct (42.0-52.0) % MCV (80.0-94.0) fL MCH (27.0-31.0) pg MCHC (32.0-36.0) g/dL RDW (12.0-15.0) % Plt Count (130-450) 10^3/uL MPV (7.4-11.4) fL Neut # (Auto) (1.5-6.6) 10^3/uL Lymph # (Auto) (1.5-3.5) 10^3/uL [place] # (Auto) (0.0-1.0) 10^3/uL Eos # (Auto) (0.0-0.7) 10^3/uL Baso # (Auto) (0.0-0.1) 10^3/uL Absolute Nucleated RBC x10^3/uL Nucleated RBC % /100WBC WBC Morphology (NORMAL) Platelet Estimate (NORMAL) Platelet Morphology (NORMAL) RBC Morph Micro Appear (NORMAL) Sodium (135-145) mmol/L Potassium (3.5-5.0) mmol/L Chloride (101-111) mmol/L Carbon Dioxide (21-32) mmol/L Anion Gap (6-13) BUN (6-20) mg/dL Creatinine (0.6-1.2) mg/dL Estimated GFR (MDRD) (>89) Glucose (70-100) mg/dL Calcium (8.5-10.3) mg/dL Magnesium (1.7-2.8) mg/dL Total Bilirubin (0.2-1.0) mg/dL AST (10-42) IU/L ALT (10-60) IU/L Alkaline Phosphatase (42-121) IU/L Total Protein (6.7-8.2) g/dL Albumin (3.2-5.5) g/dL Globulin (2.1-4.2) g/dL Albumin/Globulin Ratio (1.0-2.2) Triglycerides ( - 149) mg/dL Cholesterol ( - 199) mg/dL LDL Cholesterol, Calc ( - 129) mg/dL VLDL Cholesterol mg/dL HDL Cholesterol (60 - ) mg/dL LDL/HDL Ratio (<3.6) Cholesterol/HDL Ratio (<5.0) Urine Color YELLOW Urine Clarity CLEAR (CLEAR) Urine pH 5.5 (5.0-7.5) PH Ur Specific [place] <=1.005 (1.002-1.030) Urine Protein NEGATIVE (NEGATIVE) mg/dL Urine Glucose (UA) NEGATIVE (NEGATIVE) mg/dL Urine Ketones NEGATIVE (NEGATIVE) mg/dL Urine Occult Blood NEGATIVE (NEGATIVE) Urine Nitrite NEGATIVE (NEGATIVE) Urine Bilirubin NEGATIVE (NEGATIVE) Urine Urobilinogen 0.2 (NORMAL) (NORMAL) E.U./dL Ur Leukocyte Esterase NEGATIVE (NEGATIVE) Ur Microscopic Review NOT INDICATED Urine Culture Comments NOT INDICATED ABX Reporting Has patient been on IV antibiotics over the past 48 hours?: No Assessment/Plan - Problem List (1) Cerebrovascular accident (CVA) Impression: - imaging shows; Large vessel occlusion of the proximal right MCA temporal M2 segment. 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 left - Now with nearly fully resolved symptoms today including no slurred speech, improved LUE strength - PT notes only mild ataxia, but the patient states that this is somewhat baseline - ST cleared the patient for a regular diet - Echo shows no thrombus or mass, atrial fibrillation, mild aortic regurg Plan: Continue to monitor, continue full dose statin, full ASA, and resumed Xarelto today, no further imaging is indicated Qualifiers: CVA mechanism: embolism Precerebral and cerebral artery: middle cerebral artery Laterality of affected vessel: right Qualified Code(s): I63.411 - Cerebral infarction due to embolism of right middle cerebral artery (2) Esophageal cancer Impression: - Status post esophageal resection - PEG was removed one month ago, patient tolerating soft foods, liquids - ST evaluation was ok, now on regular diet Plan: Encourage PO intake (3) Facial droop Impression: - This is a new symptom and is apparent on exam at the time of admission that is improved today - Also with slurred speech, also nearly resolved Plan: Continue to treat for CVA (4) Atrial fibrillation Impression: - Chronic, patient states that he has an enlarged LA - Rate controlled with BB - Chronic anticoagulation with Xarelto- now resumed Plan: Continue telemetry, resume metoprolol when appropriate (5) Anemia Impression: - Anemia of chronic disease, H/H is currently 10.2/33.9, now 9.1/29.7 - No apparent bleeding Plan: Obtain iron studies, trend labs (6) Chronic cough Impression: - Takes tessalon pearls at home, and the patient states it is related to his lung condition - Denies cough during this acute event Plan: Continue home meds, monitor for worsening (7) BPH (benign prostatic hyperplasia) Impression: - Patient states that he gets up at least 3 times each night to urinate - Status post TURP several years ago Plan: Offer urinal, monitor I/O (8) Status post recent transurethral resection of prostate Impression: - Previous history of BPH - Several years ago, he states he had a TURP, but continues to get up at least 3 times per night Plan: Continue to monitor (9) Personal history of lymphoma Impression: - Past medical history notes nodular - Most recently had esophageal cancer which is considered to be in remission Plan: Continue to monitor
--- NOTE | 2019-04-21 16:54 | ADVANCE CARE PLANNING NOTE ---
Advance Care Planning - Planning Encounter Date: 04/21/19 Time: 16:53 Purpose: Establish code status, determine end of life wishes, talk about what he wants for the rest of his life. Parties in Attendance: The patient- Dell De Luna (Neal), his - Karo De Luna, and myself- GENIE Jolly Decisional Capacity of the Patient: The patient is fully decisional and can make his needs known. He can tell me his whole medical history and his , Karo believes he is not confused. - Diagnosis for Encounter (1) Cerebrovascular accident (CVA) Qualifiers: CVA mechanism: embolism Precerebral and cerebral artery: middle cerebral artery Laterality of affected vessel: right Qualified Code(s): I63.411 - Cerebral infarction due to embolism of right middle cerebral artery Summary: - Currently has had an MCA right acute stroke with slurred speech, facial droop, ataxia and left arm weakness. (2) Esophageal cancer Summary: - status post esophageal resection and just got his PEG removed one month ago. - Still with chronic diarrhea, difficulty with absorbing nutrients. (3) Personal history of lymphoma Summary: - several years ago- considered to be in remission. - Encounter Subjective/Patient's Story: The patient states he has lived a full life and has enjoyment in his daily activities. He does not want to be kept alive on machines and does not want to be a burdun to his Karo in forcing her to decide whether or not to end a ventilator. He would not enjoy life if he could not walk on his own, or do the things that he is used to doing. He has had cancer 2 times and feels pretty luck to be alive for this long. Objective/Medical Story: Dell De Luna (Neal) is an 78-year old with a past medical history hypertension, atrial fibrillation on Xarelto, hyperlipidemia, hypokalemia, osteoporosis, bone disease, T5 compression fracture, hyperglycemia, chronic back pain, esophageal cancer, status post esophageal resection, nodular lymphoma, elevated LFTs, recent pneumonia, pulmonary fibrosis from prior radiation, PEG tube and removal about one month ago, GERD, diverticulitis, and skin cancer. The patient presented to the ED via EMS since having an acute onset of left facial droop, slurred speech and difficulty walking. He just stopped his Xarelto 2 days ago for an upcoming laminectomy of T5 at [facility]. His explained that yesterday he did more activity than usual and was outside doing yard work. He felt his usual self, awoke this morning also feeling normal and this event began around 2PM today when EMS was called. Imaging showed a MCA occlusive stroke on the right. Labs show a normal WBC count of 6.4, H/H of 10.2/33.9, BUN of 21, with no other lab abnormalities. On my exam the patient has profound slurred speech and word finding difficulties. 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 BLEs are equal. He denies cough, chest pain, shortness of breath, nausea, vomiting, or dizziness. With the imaging finding on imaging of an MCA right stroke, and his physical findings that match, he has been admitted to inpatient. * The patient requested that I assist with filling out a POLST, and after discussion, he requests to be a DNR and answered NO to all 4 aspects of resuscitation including; chest compressions- NO, shocking- NO, cardiac meds- NO, and intubation- NO. He chooses limited interventions, but will allow antibiotics, blood transfusion, dialysis only if temporary. NO feeding tube, BiPAP or CPAP is ok if temporary. Goals of Care: Maintain independence and prevent a debilitating event that would prevent independence or cause brain damage or a vegetative state. Plan: Continue to treat for acute stroke using medical management with full dose aspirin, statin, and allowing blood pressure to remain passively elevated. POLST form completed and scanned into [employer], updated orders to reflect DNR. Code Status: Do Not Attempt Resuscitation Time spent on advance care plannin
[2019-04-21] MEDS: ATORVASTATIN 40 MG TABLET PO SCH (20:12)
[2019-04-22 05:07] LABS: BASOPHILS % (AUTO) 0.5 %; EOSINOPHILS # (AUTO) 0.3 10^3/uL (0.0-0.7); EOSINOPHILS % (AUTO) 6.2 %; HGB - HEMOGLOBIN 9.3 g/dL (14.0-18.0); LYMPHOCYTES # (AUTO) 2.2 10^3/uL (1.5-3.5); MEAN CORPUSCULAR HEMOGLOBIN 27.3 pg (27.0-31.0); MEAN CORPUSCULAR HGB CONC 30.9 g/dL (32.0-36.0); MEAN CORPUSCULAR VOLUME 88.3 fL (80.0-94.0); MEAN PLATELET VOLUME 10.1 fL (7.4-11.4); MONOCYTES # (AUTO) 0.6 10^3/uL (0.0-1.0); MONOCYTES % (AUTO) 11.1 %; NEUTROPHILS # (AUTO) 2.3 10^3/uL (1.5-6.6); NEUTROPHILS % (AUTO) 41.8 %; PLT - PLATELET COUNT 199 10^3/uL (130-450); RED BLOOD COUNT 3.41 10^6/uL (4.70-6.10); RED CELL DISTRIBUTION WIDTH 19.9 % (12.0-15.0); WHITE BLOOD COUNT 5.5 x10^3/uL (4.8-10.8)
[2019-04-22 05:23] LABS: HB2 TOTAL 9.2 g/dL; HEMOGLOBIN A1C 0.26 g/dL; HEMOGLOBIN A1C % 4.7 % (4.6-6.2)
[2019-04-22 05:31] LABS: CALCIUM 8.4 mg/dL (8.5-10.3); CREATININE 0.6 mg/dL (0.6-1.2); MAGNESIUM 1.8 mg/dL (1.7-2.8)
[2019-04-22] MEDS: PANTOPRAZOLE 40 MG TABLET PO SCH (06:22)
[2019-04-22] MEDS: RIVAROXABAN 10 MG TABLET PO SCH (08:51)
[2019-04-22] MEDS: POLYETHYLENE GLYCOL 3350 17 GM PACKET PO SCH (08:51)
[2019-04-22] MEDS: guaiFENesin 600 MG TABLET PO SCH (08:51)
[2019-04-22] MEDS: SODIUM CHLORIDE FLUSH 0.9% 10 ML SYRINGE IVP SCH (08:52)
[2019-04-22] MEDS: ASPIRIN 325 MG TABLET PO SCH (08:52)
[2019-04-22] MEDS ORDERED: CERAMIDES TOP SCH (09:00)
[2019-04-22] MEDS ORDERED: BIOTIN 5000 MCG PO SCH (09:00)
[2019-04-22] MEDS ORDERED: FLUTICASONE NASAL SPRAY NAS SCH (09:00)
[2019-04-22] MEDS ORDERED: ACETAMINOPHEN 500 MG TABLET PO SCH (09:00)
[2019-04-22] MEDS ORDERED: METOPROLOL TARTRATE 25 MG TABLET PO SCH (11:00)
--- NOTE | 2019-04-22 11:09 | Discharge Plan ---
Discharge Plan Problem Reviewed?: Yes Disposition: Home, Self Care Condition: Poor Prescriptions: Atorvastatin [Lipitor] 40 mg PO QPM #10 tablet Ferrous Sulfate 325 mg PO DAILY #15 tablet Diet: Regular Activity Restrictions: Activity as Tolerated Shower Restrictions: No (fall precaution) Instruction Topics: Atorvastatin tablets, Stroke Sx Health Concerns: stroke Plan of Treatment: you had stroke symptoms and quickly resolved. Advise you continue to have Xarelto Care Goals: stabilization of your medical conditions Assessment: assessment as the above Follow-Up Care: Outpatient Rehab - PT No Smoking: If you smoke, Please STOP! Call for help. Follow-up with: Sindhu Cleary PA-C [Primary Care Provider] -
--- NOTE | 2019-04-22 11:18 | DISCHARGE SUMMARY ---
Discharge Summary Discharge Date: 04/22/19 Discharging Provider: BAPTISTE Primary Care Provider: Dr. Cleary Condition at Discharge: Poor Discharge Disposition: 01 Home, Self Care Discharge Facility Name: home - DIAGNOSES Admission Diagnoses: (1) Cerebrovascular accident (CVA) (2) Esophageal cancer (3) Facial droop (4) Atrial fibrillation (5) Anemia (6) Chronic cough Discharge Diagnoses with Status of Each Condition: (1) Cerebrovascular accident (CVA) focal neurological deficits are resolved. (2) Esophageal cancer stable (3) Facial droop resolved (4) Atrial fibrillation stable, continue Xarelto (5) Anemia stable (6) Chronic cough controlled (7) BPH (benign prostatic hyperplasia) stable (8) Status post recent transurethral resection of prostate stable (9) hx of lymphoma stable, in remission - HPI History of Present Illness: refer from Ms. Mclaughlin's HPI on 04/20/19 Dell De Luna (Neal) is an 78-year old with a past medical history hypertension, atrial fibrillation on Xarelto, hyperlipidemia, hypokalemia, osteoporosis, bone disease, T5 compression fracture, hyperglycemia, chronic back pain, esophageal cancer, status post esophageal resection, nodular lymphoma, elevated LFTs, recent pneumonia, pulmonary fibrosis from prior radiation, PEG tube and removal about one month ago, GERD, diverticulitis, and skin cancer. The patient presented to the ED via EMS since having an acute onset of left facial droop, slurred speech and difficulty walking. He just stopped his Xarelto 2 days ago for an upcoming laminectomy of T5 at [facility]. His explained that yesterday he did more activity than usual and was outside doing yard work. He felt his us ual self, awoke this morning also feeling normal and this event began around 2PM today when EMS was called. Imaging showed a MCA occlusive stroke on the right. Labs show a normal WBC count of 6.4, H/H of 10.2/33.9, BUN of 21, with no other lab abnormalities. On my exam the patient has profound slurred speech and word finding difficulties. 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 BLEs are equal. He denies cough, chest pain, shortness of breath, nausea, vomiting, or dizziness. With the imaging finding on imaging of an MCA right stroke, and his physical findings that match, he has been admitted to inpatient. - HOSPITAL COURSE Hospital Course: pt was admitted for left facial droop and left focal neurological deficit. Pt was found to have CVA on right MCA large occlusion in CTA of brain. Pt stopped to take Xarelto two days ago for his procedure. After treatment with resume home anticoagulation, and antipletelet, pt's focal neurological deficits are totally resolved, then pt is d/c to home (1) Cerebrovascular accident (CVA) after pt stopped his home meds Xarelto for two days for prepare of his procedure, pt developed left side focal neurological deficits, left facial droop. CTA of brain reveals right MCA large occlusion. after treated by hospital, pt's acute focal neurology deficits are resolved. pt is prescribed Lipitor and resume home Xarelto. advise pt continue to take Xarelto, and it is likely the cause for pt to have acute CVA (2) Esophageal cancer Status post esophageal resection, stable (3) Facial droop resolved (4) Atrial fibrillation stable, continue home meds Xarelto (5) Anemia stable, iron deficiency. pt is prescribed iron pill (6) Chronic cough controlled (7) BPH (benign prostatic hyperplasia) stable, continue home meds regimen (8) Status post recent transurethral resection of prostate stable (9) hx of lymphoma stable, in remission. - ALLERGIES Allergies/Adverse Reactions: Allergies Allergy/AdvReac Type Severity Reaction Status Date / Time morphine AdvReac Hallucinati Verified 04/20/19 15:38 ons - MEDICATIONS Home Medications: Ambulatory Orders Medication Instructions Recorded Confirmed Acyclovir 400 mg PO DAILY 12/12/17 04/21/19 Biotin 5,000 mcg PO DAILY 12/12/17 04/21/19 Ceramides 1,3,6-11 [Cerave] 1 applic TOP DAILY 12/12/17 04/21/19 Cyanocobalamin (Vitamin B-12) 5,000 mcg PO DAILY MDD holding for 12/12/17 04/21/19 [Vitamin B-12] procedure Fluticasone [Flonase] 1 spray NS DAILY 12/12/17 04/21/19 Metoprolol Tartrate [Lopressor] 12.5 mg PO BID #14 tablet 12/12/17 04/21/19 Rivaroxaban [Xarelto] 20 mg PO DAILY 12/12/17 04/21/19 Doxycycline Hyclate 100 mg PO BID PRN 04/20/19 04/21/19 Omeprazole 20 mg PO BID 04/20/19 04/21/19 Acetaminophen 1,000 mg PO DAILY 04/21/19 04/21/19 Benzonatate 100 mg PO DAILY PRN 04/21/19 04/21/19 Fluticasone/Salmeterol [Advair Hfa 2 puffs INH DAILY 04/21/19 04/21/19 115-21 Mcg Inhaler] Guaifenesin [Mucinex] 600 mg PO DAILY 04/21/19 04/21/19 Loperamide [Imodium] 4 mg PO DAILY PRN 04/21/19 04/21/19 Atorvastatin [Lipitor] 40 mg PO QPM #10 tablet 04/22/19 Ferrous Sulfate 325 mg PO DAILY #15 tablet 04/22/19 - PHYSICAL EXAM AT DISCHARGE General Appearance: positive: No acute distress, Alert. negative: Lethargic Eyes Bilateral: positive: Normal inspection, PERRL, No lid inflammation, Conjunctivae nml ENT: positive: ENT inspection nml, Pharynx nml, No signs of dehydration. negat maldonado: Purulent nasal drainage, Pharyngeal erythema, Oral lesions Neck: positive: Nml inspection, Thyroid nml, No JVD, Trachea midline. negative: Thyromegaly, Lymphadenopathy (R), Lymphadenopathy (L), Stiff neck, Swelling/bruising, Tracheal deviation Respiratory: positive: Chest non-tender, No respiratory distress, Breath sounds nml. negative: Wheezes, Rales, Rhonchi Cardiovascular: positive: Regular rate & rhythm, No murmur, No gallop. negative: Irregularly irregular, Extrasystoles, Tachycardia, Bradycardia, JVD present, Systolic murmur, Diastolic murmur Peripheral Pulses: positive: 2+ Abdomen: positive: Non-tender, No organomegaly, Nml bowel sounds, No distention. negative: Tenderness, Guarding, Rebound Back: positive: Nml inspection. negative: CVA tenderness (R), CVA tenderness (L) Skin: positive: Color nml, No rash, Warm, Dry. negative: Cyanosis, Diaphoresis, Pallor Extremities: positive: Non-tender, Full ROM, Nml appearance. negative: Calf tenderness, Joint swelling, Adelita's sign/cords Neurologic/Psychiatric: positive: Oriented x3, Motor nml, Sensation nml, Mood/affect nml. negative: Weakness, Sensory loss, Facial droop, Slurred/abnml speech, Depressed mood/affect - LABS Result Diagrams: 04/22/19 04:55 04/22/19 04:55 - FOLLOW UP Follow Up: advised pt followup his PCP in one week. advised pt, should his symptoms return or worsen, he may present ER or call 911 for help - TIME SPENT Time Spent in Discharge (Minutes): 55
[2019-04-22 11:36] VITALS: BP 140/88
[2019-04-22] MEDS ORDERED: FERROUS SULFATE 325 MG TABLET PO SCH (12:00)
== END 2019-04-22 13:56 | disposition home or self-care (01) | DRG 65 ==
LOC: ED 15:08 → MS2 17:27
PROVIDERS: ADMIT Nurse Practitioner; ATTEND Nurse Practitioner Gerontology
DX: I63.411 Cerebral infarction due to embolism of right middle cerebral artery (principal); C15.9 Malignant neoplasm of esophagus, unspecified; J70.1 Chronic and other pulmonary manifestations due to radiation; R47.1 Dysarthria and anarthria; G83.24 Monoplegia of upper limb affecting left nondominant side; I48.91 Unspecified atrial fibrillation; R29.810 Facial weakness; E78.00 Pure hypercholesterolemia, unspecified; R26.0 Ataxic gait; R29.704 NIHSS score 4; I48.2 Chronic atrial fibrillation; I10 Essential (primary) hypertension; N40.1 Benign prostatic hyperplasia with lower urinary tract symptoms; R35.1 Nocturia; R39.15 Urgency of urination; D50.9 Iron deficiency anemia, unspecified; D63.8 Anemia in other chronic diseases classified elsewhere; K21.9 Gastro-esophageal reflux disease without esophagitis; G89.29 Other chronic pain; M54.9 Dorsalgia, unspecified; E78.5 Hyperlipidemia, unspecified; E87.6 Hypokalemia; M81.0 Age-related osteoporosis without current pathological fracture; M19.90 Unspecified osteoarthritis, unspecified site; R73.9 Hyperglycemia, unspecified; K52.9 Noninfective gastroenteritis and colitis, unspecified; H54.7 Unspecified visual loss; H91.90 Unspecified hearing loss, unspecified ear; F32.9 Major depressive disorder, single episode, unspecified; R79.89 Other specified abnormal findings of blood chemistry; Z66 Do not resuscitate; Z79.01 Long term (current) use of anticoagulants; Z87.01 Personal history of pneumonia (recurrent); Z85.72 Personal history of non-Hodgkin lymphomas; Z90.79 Acquired absence of other genital organ(s); Z85.828 Personal history of other malignant neoplasm of skin; Z90.49 Acquired absence of other specified parts of digestive tract
CPT/HCPCS: 36415; 70450; 70496; 70498; 80048; 80053; 80061; 81003; 83036; 83540; 83690; 83735; 84466; 85025; 85520; 85610; 85730; 92610; 93005; 93306; 97116; 97161; 97166; 99284; 99285; A9270; Q9967; 81001; 83721; 87086

== ENCOUNTER 2019-05-22 09:00 | Outpatient (CLI) | payer MEDICARE, OTHER ==
[2019-05-22 11:51] LABS: ABSOLUTE RETICS # AUTO 0.097 10^6/uL (0.020-0.110); BASOPHILS # (AUTO) 0.1 10^3/uL (0.0-0.1); BASOPHILS % (AUTO) 0.9 %; EOSINOPHILS # (AUTO) 0.3 10^3/uL (0.0-0.7); EOSINOPHILS % (AUTO) 4.4 %; HGB - HEMOGLOBIN 11.7 g/dL (14.0-18.0); LYMPHOCYTES # (AUTO) 2.7 10^3/uL (1.5-3.5); LYMPHOCYTES % (AUTO) 34.8 %; MEAN CORPUSCULAR HEMOGLOBIN 28.5 pg (27.0-31.0); MEAN CORPUSCULAR HGB CONC 29.9 g/dL (32.0-36.0); MEAN CORPUSCULAR VOLUME 95.4 fL (80.0-94.0); MEAN PLATELET VOLUME 11.1 fL (7.4-11.4); MONOCYTES # (AUTO) 0.8 10^3/uL (0.0-1.0); MONOCYTES % (AUTO) 9.7 %; NEUTROPHILS # (AUTO) 3.9 10^3/uL (1.5-6.6); NEUTROPHILS % (AUTO) 49.8 %; PLT - PLATELET COUNT 226 10^3/uL (130-450); RED CELL DISTRIBUTION WIDTH 21.2 % (12.0-15.0); WHITE BLOOD COUNT 7.8 x10^3/uL (4.8-10.8)
[2019-05-22 12:21] LABS: ALBUMIN 3.8 g/dL (3.2-5.5); ALBUMIN/GLOBULIN RATIO 1.3 (1.0-2.2); BILIRUBIN,TOTAL 1.2 mg/dL (0.2-1.0); CALCIUM 8.9 mg/dL (8.5-10.3); CREATININE 0.7 mg/dL (0.6-1.2); TOTAL PROTEIN 6.7 g/dL (6.7-8.2)
[2019-05-22 12:32] LABS: FERRITIN 69.2 ng/mL (23.9-336.2)
[2019-05-22 12:36] LABS: FOLATE 16.75 ng/mL (5.90 - >24.8)
[2019-05-22 13:09] LABS: PLATELET ESTIMATE, MANUAL NORMAL (130-450,000) (NORMAL); PLATELET MORPHOLOGY NORMAL APPEARANCE (NORMAL)
== END 2019-05-22 23:59 | disposition home or self-care (01) ==
LOC: LAB.WCP 09:00
PROVIDERS: ATTEND Family Medicine
DX: C15.5 Malignant neoplasm of lower third of esophagus (principal); I10 Essential (primary) hypertension; D64.9 Anemia, unspecified; E87.6 Hypokalemia; R94.5 Abnormal results of liver function studies
CPT/HCPCS: 36415; 80053; 82607; 82728; 82746; 83540; 84466; 85025; 85044

== ENCOUNTER 2019-06-08 08:00 | Outpatient (CLI) | payer MEDICARE, OTHER ==
[2019-06-08 13:49] LABS: ALBUMIN 3.7 g/dL (3.2-5.5); ALBUMIN/GLOBULIN RATIO 1.3 (1.0-2.2); BILIRUBIN,TOTAL 0.9 mg/dL (0.2-1.0); CREATININE 0.7 mg/dL (0.6-1.2); TOTAL PROTEIN 6.5 g/dL (6.7-8.2)
[2019-06-08 14:04] LABS: BASOPHILS # (AUTO) 0.1 10^3/uL (0.0-0.1); BASOPHILS % (AUTO) 0.9 %; EOSINOPHILS # (AUTO) 0.4 10^3/uL (0.0-0.7); EOSINOPHILS % (AUTO) 5.3 %; HGB - HEMOGLOBIN 12.5 g/dL (14.0-18.0); LYMPHOCYTES # (AUTO) 2.4 10^3/uL (1.5-3.5); LYMPHOCYTES % (AUTO) 34.5 %; MEAN CORPUSCULAR HEMOGLOBIN 29.4 pg (27.0-31.0); MEAN CORPUSCULAR HGB CONC 30.2 g/dL (32.0-36.0); MEAN CORPUSCULAR VOLUME 97.4 fL (80.0-94.0); MEAN PLATELET VOLUME 11.5 fL (7.4-11.4); MONOCYTES # (AUTO) 0.6 10^3/uL (0.0-1.0); MONOCYTES % (AUTO) 9.2 %; NEUTROPHILS # (AUTO) 3.4 10^3/uL (1.5-6.6); NEUTROPHILS % (AUTO) 49.7 %; PLT - PLATELET COUNT 189 10^3/uL (130-450); RED BLOOD COUNT 4.25 10^6/uL (4.70-6.10); RED CELL DISTRIBUTION WIDTH 19.5 % (12.0-15.0); WHITE BLOOD COUNT 6.9 x10^3/uL (4.8-10.8)
== END 2019-06-08 23:59 | disposition home or self-care (01) ==
LOC: LAB.WCP 08:00
PROVIDERS: ATTEND Physician Assistant Medical
DX: I10 Essential (primary) hypertension (principal); R79.89 Other specified abnormal findings of blood chemistry; D64.9 Anemia, unspecified
CPT/HCPCS: 36415; 80053; 85025

== ENCOUNTER 2019-07-17 07:00 | Outpatient (CLI) | payer MEDICARE, OTHER ==
[2019-07-17 13:36] LABS: BASOPHILS % (AUTO) 0.6 %; EOSINOPHILS # (AUTO) 0.2 10^3/uL (0.0-0.7); EOSINOPHILS % (AUTO) 4.1 %; HGB - HEMOGLOBIN 11.3 g/dL (14.0-18.0); LYMPHOCYTES # (AUTO) 1.9 10^3/uL (1.5-3.5); LYMPHOCYTES % (AUTO) 34.6 %; MEAN CORPUSCULAR HEMOGLOBIN 30.5 pg (27.0-31.0); MEAN CORPUSCULAR HGB CONC 31.3 g/dL (32.0-36.0); MEAN CORPUSCULAR VOLUME 97.6 fL (80.0-94.0); MEAN PLATELET VOLUME 11.5 fL (7.4-11.4); MONOCYTES # (AUTO) 0.5 10^3/uL (0.0-1.0); MONOCYTES % (AUTO) 10.1 %; NEUTROPHILS # (AUTO) 2.7 10^3/uL (1.5-6.6); NEUTROPHILS % (AUTO) 50.4 %; PLT - PLATELET COUNT 157 10^3/uL (130-450); RED CELL DISTRIBUTION WIDTH 18.1 % (12.0-15.0); WHITE BLOOD COUNT 5.3 x10^3/uL (4.8-10.8)
[2019-07-17 14:12] LABS: ALBUMIN 3.5 g/dL (3.2-5.5); ALBUMIN/GLOBULIN RATIO 1.5 (1.0-2.2); BILIRUBIN,TOTAL 1.5 mg/dL (0.2-1.0); CALCIUM 8.4 mg/dL (8.5-10.3); CREATININE 0.7 mg/dL (0.6-1.2); TOTAL PROTEIN 5.8 g/dL (6.7-8.2)
== END 2019-07-17 23:59 | disposition home or self-care (01) ==
LOC: LAB.WCP 07:00
PROVIDERS: ATTEND Family Medicine
DX: E87.6 Hypokalemia (principal); I51.9 Heart disease, unspecified
CPT/HCPCS: 36415; 80053; 83880; 85025

== ENCOUNTER 2019-07-24 08:00 | Outpatient (CLI) | payer MEDICARE, OTHER | END 2019-07-24 23:59 | disposition home or self-care (01) | LOC: LAB.R 08:00 | PROVIDERS: ATTEND Nurse Practitioner Family | DX: R31.9 Hematuria, unspecified (principal) | CPT/HCPCS: 87086 ==

== ENCOUNTER 2019-07-31 08:37 | Outpatient (CLI) | payer MEDICARE, OTHER ==
[2019-07-31 18:57] LABS: BASOPHILS # (AUTO) 0.1 10^3/uL (0.0-0.1); BASOPHILS % (AUTO) 0.9 %; EOSINOPHILS # (AUTO) 0.3 10^3/uL (0.0-0.7); EOSINOPHILS % (AUTO) 3.9 %; HGB - HEMOGLOBIN 12.4 g/dL (14.0-18.0); LYMPHOCYTES # (AUTO) 2.2 10^3/uL (1.5-3.5); LYMPHOCYTES % (AUTO) 33.1 %; MEAN CORPUSCULAR HGB CONC 30.8 g/dL (32.0-36.0); MEAN CORPUSCULAR VOLUME 103.9 fL (80.0-94.0); MEAN PLATELET VOLUME 11.1 fL (7.4-11.4); MONOCYTES # (AUTO) 0.6 10^3/uL (0.0-1.0); MONOCYTES % (AUTO) 8.3 %; NEUTROPHILS # (AUTO) 3.5 10^3/uL (1.5-6.6); NEUTROPHILS % (AUTO) 53.5 %; PLT - PLATELET COUNT 181 10^3/uL (130-450); RED BLOOD COUNT 3.88 10^6/uL (4.70-6.10); RED CELL DISTRIBUTION WIDTH 17.8 % (12.0-15.0); WHITE BLOOD COUNT 6.6 x10^3/uL (4.8-10.8)
[2019-07-31 19:03] LABS: CALCIUM 8.8 mg/dL (8.5-10.3); CREATININE 0.8 mg/dL (0.6-1.2)
== END 2019-07-31 23:59 | disposition home or self-care (01) ==
LOC: LAB.WCP 08:37
PROVIDERS: ATTEND Family Medicine
DX: I51.9 Heart disease, unspecified (principal); E87.6 Hypokalemia; D64.9 Anemia, unspecified
CPT/HCPCS: 36415; 80048; 85025

== ENCOUNTER 2020-08-25 10:05 | Emergency (ER) | payer MEDICARE, OTHER ==
[2020-08-25 11:16] LABS: BASOPHILS # (AUTO) 0.1 10^3/uL (0.0-0.1); BASOPHILS % (AUTO) 0.5 %; EOSINOPHILS % (AUTO) 0.3 %; LYMPHOCYTES # (AUTO) 1.9 10^3/uL (1.5-3.5); LYMPHOCYTES % (AUTO) 16.2 %; MEAN CORPUSCULAR HEMOGLOBIN 35.5 pg (27.0-31.0); MEAN CORPUSCULAR VOLUME 107.6 fL (80.0-94.0); MONOCYTES # (AUTO) 0.5 10^3/uL (0.0-1.0); MONOCYTES % (AUTO) 4.4 %; NEUTROPHILS # (AUTO) 9.2 10^3/uL (1.5-6.6); NEUTROPHILS % (AUTO) 78.3 %; PLT - PLATELET COUNT 188 10^3/uL (130-450); RED BLOOD COUNT 3.94 10^6/uL (4.70-6.10); RED CELL DISTRIBUTION WIDTH 12.3 % (12.0-15.0); WHITE BLOOD COUNT 11.7 x10^3/uL (4.8-10.8)
[2020-08-25] MEDS ORDERED: ONDANSETRON 4 MG/2 ML VIAL IVP STA (11:24)
[2020-08-25] MEDS ORDERED: HYDROmorphone 1 MG/ML CARPUJECT IVP STA ×2 (11:24→14:39)
[2020-08-25] MEDS ORDERED: SODIUM CHLORIDE 0.9% 1,000 ML IV STA (11:24)
--- NOTE | 2020-08-25 11:47 | ED Physician Documentation ---
History of Present Illness - Stated complaint Stated Complaint: PX IN RT ABD - Chief complaint Chief Complaint: Abd Pain - History obtained from History obtained from: Patient - Additonal information Additional information: Patient comes emergency department complaining of right-sided abdominal pain that started around 6:00 this morning. He states that he did not have the pain yesterday. He states that sometimes he feels it in his upper abdomen and sometimes in his lower. He does still have his appendix, but has had his gallbladder out. The patient states that he has been somewhat nauseated but has not vomited. No fevers or chills. No dysuria or hematuria. The patient has a history of esophageal cancer and has had an esophagectomy with reanastomosis, and is able to eat normally. He states that he was told he does still have "stones" and had an MRI or CT scan recently, but is not sure if the stones are in the remnant of his duct. He states he has not had pain like this before sinc e his gallbladder was removed. No other complaints at this time. Review of Systems Ten Systems: 10 systems reviewed and negative Constitutional: reports: Reviewed and negative. denies: Fever, Chills Eyes: reports: Reviewed and negative Ears: reports: Reviewed and negative Nose: reports: Reviewed and negative Throat: reports: Reviewed and negative Cardiac: reports: Reviewed and negative Respiratory: reports: Reviewed and negative GI: reports: Abdominal Pain, Nausea. denies: Vomiting : reports: Reviewed and negative Skin: reports: Reviewed and negative Musculoskeletal: reports: Reviewed and negative Neurologic: reports: Reviewed and negative Psychiatric: reports: Reviewed and negative Endocrine: reports: Reviewed and negative Immunocompromised: reports: Reviewed and negative PD PAST MEDICAL HISTORY - Past Medical History Cardiovascular: Hypertension, High cholesterol, Coronary artery disease, Atrial fibrillation, Arrhythmia Respiratory: Pneumonia, Other (pulmonary fibrosis) Neuro: None Endocrine/Autoimmune: Other GI: GERD, Chronic diarrhea, Diverticulitis 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: None : Benign prostate hypertrophy, Nocturia HEENT: Chronic vision loss Psych: Depression Musculoskeletal: Osteoarthritis, Fatigue, Chronic back pain, Other Derm: None - Past Surgical History Past Surgical History: Yes General: Cholecystectomy, Gastric surgery, EGD, Other Ortho: Arthroscopic surgery Cardiovascular: Other Derm: Skin cancer surgery, Other - Present Medications Home Medications: Ambulatory Orders Medication Instructions Recorded Confirmed Acyclovir 400 mg PO DAILY 12/12/17 06/05/19 Biotin 5,000 mcg PO DAILY 12/12/17 06/05/19 Ceramides 1,3,6-II [Cerave] 1 applic TOP DAILY 12/12/17 06/05/19 Fluticasone [Flonase] 1 spray NS DAILY 12/12/17 06/05/19 Metoprolol Tartrate [Lopressor] 12.5 mg PO BID #14 tablet 12/12/17 06/05/19 Rivaroxaban [Xarelto] 20 mg PO DAILY 12/12/17 06/05/19 Doxycycline Hyclate 100 mg PO BID PRN 04/20/19 06/05/19 Omeprazole 20 mg PO BID 04/20/19 06/05/19 Acetaminophen 1,000 mg PO DAILY 04/21/19 06/05/19 Fluticasone/Salmeterol [Advair Hfa 2 puffs INH DAILY 04/21/19 06/05/19 115-21 Mcg Inhaler] Loperamide [Imodium] 4 mg PO DAILY PRN 04/21/19 06/05/19 Atorvastatin [Lipitor] 40 mg PO QPM #10 tablet 04/22/19 06/05/19 Ferrous Sulfate 325 mg PO DAILY #15 tablet 04/22/19 06/05/19 Cholecalciferol (Vitamin D3) 2,000 unit PO DAILY 06/05/19 06/05/19 [Vitamin D] Multivitamin [Multivitamins] 1 each PO DAILY 06/05/19 06/05/19 HYDROcod/ACETAM 5/325 [[place] 5/325] 1 - 2 ea PO Q6H PRN #15 tablet 08/25/20 - Allergies Allergies/Adverse Reactions: Allergies Allergy/AdvReac Type Severity Reaction Status Date / Time morphine AdvReac Hallucinati Verified 08/25/20 10:44 ons - Social History Does the pt smoke?: No Smoking Status: Never smoker Does the pt drink ETOH?: Yes Does the pt have substance abuse?: No - Immunizations Immunizations are current?: No - POLST Patient has POLST: No POLST Status: Full Code PD ED PE NORMAL - Vitals Vital signs reviewed: Yes - General General: Alert and oriented X 3, No acute distress - HEENT HEENT: Atraumatic, PERRL, EOMI, Moist mucous membranes - Neck Neck: Supple, no meningeal sign - Cardiac Cardiac: RRR, No murmur - Respiratory Respiratory: No respiratory distress, Clear bilaterally - Abdomen Abdomen: Soft, Non distended, Other (Mild tenderness just to the right of the suprapubic area. No right upper quadrant tenderness.) - Derm Derm: Warm and dry - Extremities Extremities: No deformity - Neuro Neuro: Alert and oriented X 3 - Psych Psych: Normal mood, Normal affect Results - Vitals Vitals: Oxygen O2 Source Room air - Labs Labs: Laboratory Tests 08/25/20 08/25/20 08/25/20 10:45 11:42 11:42 WBC 11.7 H RBC 3.94 L Hgb 14.0 Hct 42.4 MCV 107.6 H MCH 35.5 H MCHC 33.0 RDW 12.3 Plt Count 188 MPV 11.0 Neut # (Auto) 9.2 H Lymph # (Auto) 1.9 [place] # (Auto) 0.5 Eos # (Auto) 0.0 Baso # (Auto) 0.1 Absolute Nucleated RBC 0.00 Nucleated RBC % 0.0 PT 29.2 H INR 2.8 H Sodium 142 Potassium 4.2 Chloride 106 Carbon Dioxide 23 Anion Gap 13.0 BUN 19 Creatinine 1.1 Estimated GFR (MDRD) 64 L Glucose 137 H Calcium 9.2 Total Bilirubin 1.2 H AST 45 H ALT 70 H Alkaline Phosphatase 101 Total Protein 6.6 L Albumin 4.1 Globulin 2.5 Albumin/Globulin Ratio 1.6 Lipase 15 L - Rads (name of study) CT abd/pelvis Radiology: Final report received, EMP read indepedently, See rad report (2 mm calculus at right UVJ with mild right hydroureter; no other right sided or acute abdominal or pelvic findings.) PD MEDICAL DECISION MAKING - ED course Complexity details: reviewed results, re-evaluated patient, considered differential, d/w patient ED course: Was evaluated by myself in the emergency department and worked up with labs, urinalysis, and CT scan of the abdomen and pelvis. Labs were unremarkable; the CT scan showed a tiny ureteral calculus which had made it to the UVJ on the right. The patient was feeling better after a dose of Dilaudid, and I did come and speak with him regarding his results. We have discussed that this stone, based on a small size, will certainly pass, and that this would be expected within the coming hours, but could take days or very much less likely, some weeks. We have discussed drinking plenty of fluids. I have given the patient a prescription for hydrocodone to help with pain, should he have any. I do not feel that Flomax is likely to be helpful, as the stone has already made it to the distalmost portion of the ureter. We have discussed that the patient can strain his urine and if he does not note passage of the stone, but continues to have symptoms after a couple of weeks, that he should follow-up with his primary care physician to discuss with her urologic referral as appropriate. We have discussed the usual indications for return. Departure - Departure Disposition: Home, Self Care Clinical Impression: Kidney stone on right side Condition: Stable Instructions: ED Stone Renal W Colic Prescriptions: HYDROcod/ACETAM 5/325 [[place] 5/325] 1 - 2 ea PO Q6H PRN #15 tablet PRN Reason: Pain Comments: Your CT scan shows a right-sided kidney stone which is almost to your bladder. This is the cause of your pain. Fortunately, once the stone pops into your bladder, it is very easy to pass. A couple of other stones are noted in your right kidney, but are not passing at this time. Please drink plenty of fluids and take the medication for pain if needed. Discharge Date/Time: 08/25/20 16:45
[2020-08-25 12:19] LABS: INR 2.8 (0.8-1.2); PT - PROTHROMBIN TIME 29.2 secs (9.9-12.6)
[2020-08-25 12:26] LABS: ALBUMIN 4.1 g/dL (3.2-5.5); ALBUMIN/GLOBULIN RATIO 1.6 (1.0-2.2); BILIRUBIN,TOTAL 1.2 mg/dL (0.2-1.0); CALCIUM 9.2 mg/dL (8.5-10.3); CREATININE 1.1 mg/dL (0.6-1.2); TOTAL PROTEIN 6.6 g/dL (6.7-8.2)
[2020-08-25] MEDS ORDERED: IOVERSOL 320 100 ML VIAL IVP ONE ×2 (13:14→14:26)
--- NOTE | 2020-08-25 14:57 | CT Report ---
PROCEDURE: Abdomen/Pelvis W INDICATIONS: Right lower quadrant abdominal pain CONTRAST: IV CONTRAST: Optiray 320 ml: 100 PO CONTRAST: *NO PO CONTRAST TECHNIQUE: After the administration of intravenous contrast, 5 mm thick sections acquired from the diaphragms to the symphysis. 5 mm thick coronal and sagittal reformats were acquired. For radiation dose reducti on, the following was used: automated exposure control, adjustment of mA and/or kV according to chacha ent size. COMPARISON: None. FINDINGS: Image quality: Excellent. ABDOMEN: Lung bases: Lung bases are clear. Heart size is normal. Solid organs: Liver and spleen are normal in size and enhancement. Gallbladder has been removed. B iliary system is non dilated. Pancreas enhances normally. No adrenal nodules. Kidneys demonstrate normal size and enhancement, without hydronephrosis. Peritoneum and bowel: Postsurgical changes of esophagectomy and gastric pull-through. No abnormally d ilated loop of bowel. No pericolonic or mesenteric inflammatory changes. The appendix is normal in ap pearance. Nodes and vessels: No retroperitoneal or mesenteric adenopathy by size criteria. Aorta and inferior vena cava are normal in size. Miscellaneous: No ventral hernias. PELVIS: Genitourinary: There appears to be a calculus in the right UVJ at the ureteral orifice measuring appr oximately 2 mm (series 3 image 76). Mild distal right hydroureter as a result of the calculus. Miscellaneous: No pelvic or inguinal lymphadenopathy by CT size criteria. Bones: No suspicious bony lesions. No vertebral body compression fractures. IMPRESSION: Approximately 2 mm calculus at the right UVJ with mild right hydroureter. Reviewed by: Brenden Jarrett MD on 08/25/2020 2:56 PM PST Approved by: Brenden Jarrett MD on 08/25/2020 2:56 PM PST Station ID: [id number]
[2020-08-25 15:21] VITALS: BP 136/78
== END 2020-08-25 16:45 | disposition home or self-care (01) ==
LOC: ED 10:05
DX: N20.1 Calculus of ureter (principal); N13.4 Hydroureter; I48.91 Unspecified atrial fibrillation; Z79.01 Long term (current) use of anticoagulants; I10 Essential (primary) hypertension; Z08 Encounter for follow-up examination after completed treatment for malignant neoplasm; Z85.01 Personal history of malignant neoplasm of esophagus
CPT/HCPCS: 36415; 74177; 80053; 83690; 85025; 85610; 96374; 96375; 96376; 99284; 99285; J1170; Q9967

== ENCOUNTER 2020-08-28 09:39 | Emergency (ER) | payer MEDICARE, OTHER ==
[2020-08-28] MEDS ORDERED: HYDROmorphone 1 MG/ML CARPUJECT IVP STA (10:04)
[2020-08-28] MEDS ORDERED: SODIUM CHLORIDE 0.9% 1,000 ML IV STA (10:04)
[2020-08-28] MEDS ORDERED: KETOROLAC 30 MG/ML VIAL IVP STA (10:05)
--- NOTE | 2020-08-28 13:37 | CT Report ---
PROCEDURE: Abdomen/Pelvis WO INDICATIONS: kidney stones, worsening pain TECHNIQUE: Noncontrast 5 mm thick sections acquired from the diaphragms to the symphysis. 5 mm coronal and sagi ttal reformats were then performed. For radiation dose reduction, the following was used: automated exposure control, adjustment of mA and/or kV according to patient size. COMPARISON: CT abdomen and pelvis 08/25/2020. FINDINGS: Image quality: Excellent. ABDOMEN: Lung bases: Trace bilateral pleural effusions, increased on the left. Heart size is normal. Coronary artery calcifications. Solid organs: Liver and spleen are normal in size. Gallbladder is surgically absent. Pancreas is a trophic. No adrenal nodules. Kidneys are normal in size. No persistent nephrogram. However, there is persistent excreted contrast in the right ureter. There is mild right hydroureter, unchanged. Moderate right hydronephrosis, sligh tly increased. Again seen is an obstructive calculus at the right UVJ measuring 2 mm, (6/58). Additio nal nonobstructing kidney stones in the right kidney. Largest measuring 4 mm. Punctate nonobstructing additional calculi in the left kidney. Peritoneum and bowel: Gastric pull-through. Mild fluid in the distal neoesophagus. No bowel injectio n. Prominent stool in the right and transverse colon. Diverticulosis. Normal appendix. No free fluid or air. Nodes and vessels: No retroperitoneal or mesenteric adenopathy by size criteria. Aorta and inferior vena cava are normal in caliber. Mild calcified plaque. Miscellaneous: No ventral hernias. PELVIS: Genitourinary: Beam hardening artifact. Bladder is unremarkable. Prostatomegaly. Miscellaneous: No inguinal hernias or adenopathy. Bones: Prior right-sided rib fractures. No suspicious bony lesions. Compression fracture and vertebr oplasty at L1. 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 Moderate DDD. 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 Left hip total arthroplasty. IMPRESSION: 1. Unchanged obstructing calculus at the right UVJ measuring 2 mm. 2. Moderate right hydronephrosis, increased. 3. Persistent excreted contrast in the right ureter. No persistent renal nephrogram. 4. Additional bilateral nonobstructing kidney stones. 5. Trace bilateral pleural effusions. Reviewed by: Franc José MD on 08/28/2020 12:36 PM [facility] Approved by: Franc José MD on 08/28/2020 12:36 PM [facility] Station ID: [id number]
--- NOTE | 2020-08-28 13:45 | ED Physician Documentation ---
History of Present Illness - Stated complaint Stated Complaint: MALE - Chief complaint Chief Complaint: UTI - History obtained from History obtained from: Patient - Additonal information Additional information: Pt returns to the ED after being dx a couple of days ago with 2 mm R ureteral stone at UVJ. He states he ran out of his analgesics, and has continued to have a lot of pain at home. He states the pain has moved into his back, and he is concerned about a UTI. He noticed a bit of a chill, but has not measured a fever. No N/V. No respiratory sx. No diarrhea. Pt has not seen the stone pass in the strainer. Review of Systems Ten Systems: 10 systems reviewed and negative Constitutional: reports: Chills. denies: Fever, Myalgias Eyes: reports: Reviewed and negative Ears: reports: Reviewed and negative Nose: reports: Reviewed and negative Throat: reports: Reviewed and negative Cardiac: reports: Reviewed and negative Respiratory: reports: Reviewed and negative GI: reports: Abdominal Pain. denies: Nausea, Vomiting : reports: Reviewed and negative. 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 : Benign prostate hypertrophy, Nocturia HEENT: Chronic vision loss Psych: Depression Musculoskeletal: Osteoarthritis, Fatigue, Chronic back pain, Other Derm: None Other Past Medical History: esophageal cancer with chemo/radiation - Past Surgical History Past Surgical History: Yes General: Cholecystectomy, Gastric surgery, EGD, Other Ortho: Arthroscopic surgery Cardiovascular: Other Derm: Skin cancer surgery, Other - Present Medications Home Medications: Ambulatory Orders Medication Instructions Recorded Confirmed Acyclovir 400 mg PO DAILY 12/12/17 08/28/20 Biotin 5,000 mcg PO DAILY 12/12/17 08/28/20 Ceramides 1,3,6-II [Cerave] 1 applic TOP DAILY 12/12/17 08/28/20 Metoprolol Tartrate [Lopressor] 12.5 mg PO BID #14 tablet 12/12/17 08/28/20 Rivaroxaban [Xarelto] 20 mg PO DAILY 12/12/17 08/28/20 Omeprazole 20 mg PO DAILY 04/20/19 08/28/20 Acetaminophen 1,000 mg PO DAILY 04/21/19 08/28/20 Fluticasone/Salmeterol [Advair Hfa 2 puffs INH DAILY 04/21/19 08/28/20 115-21 Mcg Inhaler] Atorvastatin [Lipitor] 40 mg PO QPM #10 tablet 04/22/19 08/28/20 Cholecalciferol (Vitamin D3) 2,000 unit PO DAILY 06/05/19 08/28/20 [Vitamin D] Multivitamin [Multivitamins] 1 each PO DAILY 06/05/19 08/28/20 HYDROcod/ACETAM 5/325 [[place] 5/325] 1 - 2 ea PO Q6H PRN #25 tablet 08/28/20 Tamsulosin [Flomax] 0.4 mg PO DAILY PRN #5 capsule 08/28/20 - Allergies Allergies/Adverse Reactions: Allergies Allergy/AdvReac Type Severity Reaction Status Date / Time morphine AdvReac Hallucinati Verified 08/28/20 09:52 ons - Social History Does the pt smoke?: No Smoking Status: Never smoker Does the pt drink ETOH?: Yes Does the pt have substance abuse?: No - Immunizations Immunizations are current?: Yes - POLST Patient has POLST: No POLST Status: Full Code PD ED PE NORMAL - Vitals Vital signs reviewed: Yes - General General: Alert and oriented X 3, No acute distress - HEENT HEENT: Atraumatic, PERRL, EOMI, Moist mucous membranes - Neck Neck: Supple, no meningeal sign - Cardiac Cardiac: RRR, No murmur, Strong equal pulses - Respiratory Respiratory: No respiratory distress, Clear bilaterally - Abdomen Abdomen: Soft, Non distended, Other (Mild, RLQ) - Back Back: No CVA TTP, Other (Pt has mild tenderness of R lower back, inferior to CVA) - Derm Derm: Warm and dry - Extremities Extremities: No deformity - Neuro Neuro: Alert and oriented X 3 - Psych Psych: Normal mood, Normal affect Results - Vitals Vitals: Oxygen O2 Source Room air - Labs Labs: Laboratory Tests 08/28/20 08/28/20 14:30 15:00 Sodium 132 L Potassium 4.3 Chloride 99 L Carbon Dioxide 22 Anion Gap 11.0 BUN 22 H Creatinine 1.6 H Estimated GFR (MDRD) 42 L Glucose 106 H Calcium 8.0 L Urine Color YELLOW Urine Clarity CLEAR Urine pH 5.[address] 1.020 Urine Protein TRACE Urine Glucose (UA) NEGATIVE Urine Ketones TRACE Urine Occult Blood NEGATIVE Urine Nitrite NEGATIVE Urine Bilirubin NEGATIVE Urine Urobilinogen 0.2 (NORMAL) Ur Leukocyte Esterase NEGATIVE Ur Microscopic Review NOT INDICATED Urine Culture Comments NOT INDICATED - Rads (name of study) CT a/p, no contrast Radiology: Final report received, EMP read indepedently, See rad report (continued presence of R UVJ stone, moderate hydronephrosis.) PD MEDICAL DECISION MAKING - ED course Complexity details: reviewed old records, reviewed results, re-evaluated patient, considered differential, d/w patient ED course: The pt was given a liter of NS, as well as Dilaudid and Toradol, after which he did feel better. However, he still had not produced any urine. The pt was given a total of 750 cc of water to drink, during which a bladder scan showed 50 cc of urine in the bladder. The pt felt he had drunk plenty of water yesterday, but noted he had not had any today. I d/w pt that at this point, given that we had waited several hours for a urine, to no avail, it would be best to catheterize for a sample. I did ask nursing staff to obtain the sample in this way, and after some delay, it was finally done. Urinalysis was negative. The pt's BMP did show an increase of the pt's creatinine from normal a few days ago to slightly elevated. BUN was a little higher than before, as well. The 2mm stone is still in place, though I would not expect this to cause complete obstruction. Additionally, the pt has no obstruction of any kind on the left side. As such, I felt that the pt likely needed to continue aggressive hydration at home. I did not find any other cause for pain in the pt, and have advised him to follow up with his PCP or urology, for whom contact information has been provided, if he is not feeling better within the week. I have refilled his analgesics, and we have discussed the usual indications for return. Departure - Departure Disposition: Home, Self Care Clinical Impression: Kidney stone on right side, Mild dehydration Condition: Stable Instructions: ED Dehydration, ED Stone Renal W Colic Follow-Up: Ray Chairez MD [Physician No Access] - Prescriptions: Tamsulosin [Flomax] 0.4 mg PO DAILY PRN #5 capsule PRN Reason: Abdominal Pain HYDROcod/ACETAM 5/325 [[place] 5/325] 1 - 2 ea PO Q6H PRN #25 tablet PRN Reason: Pain Comments: Your urinalysis is negative. Your CT scan continues to show a small stone that is passing from the ureter through the bladder wall. Based on the small size of the stone, there is no reason to think that it will not pass on its own. However, it can be helped along by drinking plenty of fluids. You were found to be somewhat dehydrated today and your kidney function is a little bit slowed because of this. Please be sure you drink plenty of fluids. 10 to 12 glasses of water per day is probably most ideal. You should take the pain medication as needed. You have also been prescribed Flomax or tamsulosin, which is a smooth muscle relaxant and may help alleviate some of the spasm which keeps the stone from being able to pass complete only. Please take this on a daily basis, as directed and as needed. Please schedule an appointment as soon as possible follow-up with your primary care physician. You have also been given contact information for urology in [place] and you should make a follow-up appointment with the urologist. Discharge Date/Time: 08/28/20 15:41
[2020-08-28 14:50] VITALS: BP 129/75
[2020-08-28 14:51] LABS: BILIRUBIN,URINE NEGATIVE (NEGATIVE); GLUCOSE, URINE (UA) NEGATIVE (NEGATIVE); KETONES,URINE (UA) TRACE mg/dL (NEGATIVE); LEUKOCYTE ESTERASE, URINE NEGATIVE (NEGATIVE); NITRITE,URINE NEGATIVE (NEGATIVE); OCCULT BLOOD,URINE NEGATIVE (NEGATIVE); PH,URINE 5.5 PH (5.0-7.5); PROTEIN,URINE TRACE mg/dL (NEGATIVE); UROBILINOGEN,URINE 0.2 (NORMAL) E.U./dL (NORMAL)
[2020-08-28 14:55] LABS: CLARITY,URINE CLEAR (CLEAR)
[2020-08-28 15:11] LABS: CREATININE 1.6 mg/dL (0.6-1.2)
== END 2020-08-28 15:41 | disposition home or self-care (01) ==
LOC: ED 09:39
DX: N13.2 Hydronephrosis with renal and ureteral calculous obstruction (principal); E86.0 Dehydration; I10 Essential (primary) hypertension; I48.91 Unspecified atrial fibrillation; Z79.01 Long term (current) use of anticoagulants
CPT/HCPCS: 36415; 74176; 80048; 81003; 96361; 96374; 99284; J1170; 81001; 87086

== ENCOUNTER 2020-09-03 13:30 | Outpatient (CLI) | payer MEDICARE, OTHER ==
[2020-09-03 16:28] LABS: BILIRUBIN,URINE NEGATIVE (NEGATIVE); GLUCOSE, URINE (UA) 100 mg/dL (NEGATIVE); KETONES,URINE (UA) NEGATIVE (NEGATIVE); LEUKOCYTE ESTERASE, URINE MODERATE (NEGATIVE); NITRITE,URINE POSITIVE (NEGATIVE); OCCULT BLOOD,URINE MODERATE (NEGATIVE); PH,URINE 5.5 PH (5.0-7.5); PROTEIN,URINE 30 mg/dL (NEGATIVE); UROBILINOGEN,URINE 0.2 (NORMAL) E.U./dL (NORMAL)
[2020-09-03 16:56] LABS: CLARITY,URINE HAZY (CLEAR); RBC,URINE TNTC /HPF (0-5); WBC CLUMPS,URINE PRESENT
[2020-09-03 16:57] LABS: BACTERIA,URINE Many /HPF (None Seen); SQUAMOUS EPITHELIAL CELL,UR RARE Squamous (<= Few)
== END 2020-09-03 23:59 | disposition home or self-care (01) ==
LOC: LAB.R 13:30
PROVIDERS: ATTEND Nurse Practitioner
DX: N39.0 Urinary tract infection, site not specified (principal)
CPT/HCPCS: 81001; 87086; 87181

== ENCOUNTER 2020-10-21 08:00 | Outpatient (CLI) | payer MEDICARE, OTHER ==
[2020-10-21 11:17] LABS: BASOPHILS % (AUTO) 0.4 %; EOSINOPHILS # (AUTO) 0.1 10^3/uL (0.0-0.7); EOSINOPHILS % (AUTO) 1.9 %; HGB - HEMOGLOBIN 12.4 g/dL (14.0-18.0); LYMPHOCYTES # (AUTO) 3.2 10^3/uL (1.5-3.5); LYMPHOCYTES % (AUTO) 47.1 %; MEAN CORPUSCULAR HEMOGLOBIN 34.8 pg (27.0-31.0); MEAN CORPUSCULAR HGB CONC 31.9 g/dL (32.0-36.0); MEAN CORPUSCULAR VOLUME 109.3 fL (80.0-94.0); MEAN PLATELET VOLUME 10.4 fL (7.4-11.4); MONOCYTES # (AUTO) 0.4 10^3/uL (0.0-1.0); MONOCYTES % (AUTO) 5.4 %; NEUTROPHILS # (AUTO) 3.1 10^3/uL (1.5-6.6); NEUTROPHILS % (AUTO) 44.9 %; PLT - PLATELET COUNT 160 10^3/uL (130-450); RED BLOOD COUNT 3.56 10^6/uL (4.70-6.10); RED CELL DISTRIBUTION WIDTH 12.9 % (12.0-15.0); WHITE BLOOD COUNT 6.8 x10^3/uL (4.8-10.8)
[2020-10-21 11:18] LABS: BILIRUBIN,URINE NEGATIVE (NEGATIVE); CLARITY,URINE CLEAR (CLEAR); GLUCOSE, URINE (UA) NEGATIVE (NEGATIVE); KETONES,URINE (UA) NEGATIVE (NEGATIVE); LEUKOCYTE ESTERASE, URINE NEGATIVE (NEGATIVE); NITRITE,URINE NEGATIVE (NEGATIVE); OCCULT BLOOD,URINE NEGATIVE (NEGATIVE); PROTEIN,URINE NEGATIVE (NEGATIVE); UROBILINOGEN,URINE 0.2 (NORMAL) E.U./dL (NORMAL)
[2020-10-21 11:23] LABS: BACTERIA,URINE Rare /HPF (None Seen); CRYSTALS,URINE 6-10 Calcium Oxalate /LPF; RBC,URINE 0-5 /HPF (0-5); SQUAMOUS EPITHELIAL CELL,UR RARE Squamous (<= Few)
[2020-10-21 12:09] LABS: ALBUMIN 3.7 g/dL (3.2-5.5); ALBUMIN/GLOBULIN RATIO 1.7 (1.0-2.2); ALKALINE PHOSPHATASE 88 IU/L (42-121); ALT ALANINE AMINOTRANSFERASE 72 IU/L (10-60); AST ASPARTATE AMINOTRANSFERASE 67 IU/L (10-42); BILIRUBIN,TOTAL 1.1 mg/dL (0.2-1.0); BUN - BLOOD UREA NITROGEN 18 mg/dL (6-20); CALCIUM 8.9 mg/dL (8.5-10.3); CARBON DIOXIDE - CO2 21 mmol/L (21-32); CHLORIDE 106 mmol/L (101-111); CHOL/HDL RATIO 2.6 (<5.0); CHOLESTEROL 119 mg/dL; CREATININE 0.8 mg/dL (0.6-1.2); GLUCOSE 97 mg/dL (70-100); HDL CHOLESTEROL 46 mg/dL; LDL CHOLESTEROL,CALCULATED 57 mg/dL; LDL/HDL RATIO 1.2 (<3.6); TOTAL PROTEIN 5.9 g/dL (6.7-8.2); VLDL CHOLESTEROL 16 mg/dL
== END 2020-10-21 23:59 | disposition home or self-care (01) ==
LOC: LAB 08:00
PROVIDERS: ATTEND Physician Assistant Medical
DX: R73.9 Hyperglycemia, unspecified (principal); R94.5 Abnormal results of liver function studies; E78.5 Hyperlipidemia, unspecified; Z13.9 Encounter for screening, unspecified; M81.0 Age-related osteoporosis without current pathological fracture; D64.9 Anemia, unspecified; I10 Essential (primary) hypertension; R30.0 Dysuria
CPT/HCPCS: 36415; 80053; 80061; 81001; 83721; 84443; 85025; 87086

== ENCOUNTER 2020-11-05 08:00 | Outpatient (CLI) | payer MEDICARE, OTHER | END 2020-11-05 23:59 | disposition home or self-care (01) | LOC: LAB.N 08:00 | PROVIDERS: ATTEND Physician Assistant Medical | DX: N21.8 Other lower urinary tract calculus (principal) | CPT/HCPCS: 36415; 80048 ==

== ENCOUNTER 2020-12-01 13:38 | Outpatient (CLI) | payer MEDICARE, OTHER ==
[2020-12-01 14:26] LABS: ALBUMIN 4.1 g/dL (3.2-5.5); ALBUMIN/GLOBULIN RATIO 1.6 (1.0-2.2); BILIRUBIN,TOTAL 1.2 mg/dL (0.2-1.0); CALCIUM 9.4 mg/dL (8.5-10.3); CREATININE 0.9 mg/dL (0.6-1.2); POTASSIUM 4.2 mmol/L (3.5-5.0); TOTAL PROTEIN 6.7 g/dL (6.7-8.2)
[2020-12-02 12:21] LABS: HEPATITIS B SURFACE ANTIGEN NON-REACTIVE (NON-REACTIVE); HEPATITIS C ANTIBODY NON-REACTIVE (NON-REACTIVE)
== END 2020-12-01 13:39 | disposition home or self-care (01) ==
LOC: LAB 13:38
PROVIDERS: ATTEND Physician Assistant Medical
DX: R74.8 Abnormal levels of other serum enzymes (principal)
CPT/HCPCS: 36415; 80053; 86317; 86704; 86709; 86803; 87340

== ENCOUNTER 2020-12-13 07:07 | Outpatient (CLI) | payer MEDICARE, OTHER ==
--- NOTE | 2020-12-13 09:37 | Ultrasound Report ---
PROCEDURE: Abdomen Limited INDICATIONS: ELEVATED LIVER ENZYMES TECHNIQUE: Real-time scanning was performed of the abdominal and retroperitoneal organs, with image documentatio n. COMPARISON: CT dated 08/28/2020. FINDINGS: Liver: Limited evaluation of the liver secondary to moderate overlying bowel gas. Left hepatic lobe not well visualized. Of the imaged portions of the liver, no significant sonographic abnormalities vi sualized. No focal intrahepatic lesions. Gallbladder: Status post cholecystectomy Biliary ducts: Intrahepatic bile ducts are non-dilated. Extrahepatic bile duct caliber measures 6 m m. Normal is 6-7 mm or less in diameter, or 10 mm or less post-cholecystectomy. Pancreas: Pancreas not visualized on today's examination secondary to bowel gas. Kidneys: Right kidney is normal in size and echotexture. Right kidney measures 12.1 cm long; no hydr onephrosis or nephrolithiasis. No solid masses. Miscellaneous: No free abdominal fluid. IMPRESSION: Limited evaluation the liver secondary to adjacent bowel gas. No focal intrahepatic abnormalities vis ualized. No biliary ductal dilatation. Status post cholecystectomy. Nonvisualization of the pancreas on today's study secondary to bowel gas. Reviewed by: Be Smith MD on 12/13/2020 9:35 AM PDT Approved by: Be Smith MD on 12/13/2020 9:35 AM PDT Station ID: [id number]
== END 2020-12-13 07:08 | disposition home or self-care (01) ==
LOC: DI 07:07
PROVIDERS: ATTEND Physician Assistant Medical
DX: R74.8 Abnormal levels of other serum enzymes (principal); Z90.49 Acquired absence of other specified parts of digestive tract

== ENCOUNTER 2021-02-11 10:00 | Outpatient (CLI) | payer MEDICARE, OTHER ==
[2021-02-11 10:23] LABS: BASOPHILS # (AUTO) 0.1 10^3/uL (0.0-0.1); BASOPHILS % (AUTO) 0.6 %; EOSINOPHILS # (AUTO) 0.2 10^3/uL (0.0-0.7); HCT - HEMATOCRIT 39.1 % (42.0-52.0); HGB - HEMOGLOBIN 13.2 g/dL (14.0-18.0); LYMPHOCYTES # (AUTO) 3.5 10^3/uL (1.5-3.5); LYMPHOCYTES % (AUTO) 44.2 %; MEAN CORPUSCULAR HEMOGLOBIN 35.2 pg (27.0-31.0); MEAN CORPUSCULAR HGB CONC 33.8 g/dL (32.0-36.0); MEAN CORPUSCULAR VOLUME 104.3 fL (80.0-94.0); MEAN PLATELET VOLUME 10.6 fL (7.4-11.4); MONOCYTES # (AUTO) 0.5 10^3/uL (0.0-1.0); MONOCYTES % (AUTO) 6.4 %; NEUTROPHILS # (AUTO) 3.6 10^3/uL (1.5-6.6); NEUTROPHILS % (AUTO) 46.4 %; PLT - PLATELET COUNT 173 10^3/uL (130-450); RED BLOOD COUNT 3.75 10^6/uL (4.70-6.10); RED CELL DISTRIBUTION WIDTH 13.1 % (12.0-15.0); WHITE BLOOD COUNT 7.8 x10^3/uL (4.8-10.8)
[2021-02-11 10:42] LABS: ALBUMIN 3.7 g/dL (3.2-5.5); ALBUMIN/GLOBULIN RATIO 1.5 (1.0-2.2); ALKALINE PHOSPHATASE 96 IU/L (42-121); ALT ALANINE AMINOTRANSFERASE 53 IU/L (10-60); AST ASPARTATE AMINOTRANSFERASE 56 IU/L (10-42); BILIRUBIN,TOTAL 1.4 mg/dL (0.2-1.0); BUN - BLOOD UREA NITROGEN 17 mg/dL (6-20); CALCIUM 8.8 mg/dL (8.5-10.3); CARBON DIOXIDE - CO2 26 mmol/L (21-32); CHLORIDE 103 mmol/L (101-111); CHOL/HDL RATIO 2.4 (<5.0); CHOLESTEROL 121 mg/dL; CREATININE 0.8 mg/dL (0.6-1.2); GFR - MDRD 93 (>89); GLUCOSE 111 mg/dL (70-100); HDL CHOLESTEROL 50 mg/dL; LDL CHOLESTEROL,CALCULATED 60 mg/dL; LDL/HDL RATIO 1.2 (<3.6); POTASSIUM 4.3 mmol/L (3.5-5.0); SODIUM 138 mmol/L (135-145); TOTAL PROTEIN 6.2 g/dL (6.7-8.2); TRIGLYCERIDES 56 mg/dL; VLDL CHOLESTEROL 11 mg/dL
[2021-02-11 10:55] LABS: THYROID STIMULATING HORMONE 2.43 uIU/mL (0.34-5.60)
[2021-02-11 11:06] LABS: BILIRUBIN,URINE NEGATIVE (NEGATIVE); GLUCOSE, URINE (UA) NEGATIVE (NEGATIVE); KETONES,URINE (UA) NEGATIVE (NEGATIVE); LEUKOCYTE ESTERASE, URINE NEGATIVE (NEGATIVE); NITRITE,URINE NEGATIVE (NEGATIVE); OCCULT BLOOD,URINE NEGATIVE (NEGATIVE); PH,URINE 5.5 PH (5.0-7.5); PROTEIN,URINE NEGATIVE (NEGATIVE); UROBILINOGEN,URINE 0.2 (NORMAL) E.U./dL (NORMAL)
[2021-02-11 11:07] LABS: CLARITY,URINE CLEAR (CLEAR)
[2021-02-11 11:08] LABS: BACTERIA,URINE None Seen /HPF (None Seen); RBC,URINE None Seen /HPF (0-5); SQUAMOUS EPITHELIAL CELL,UR NONE SEEN (<= Few); WBC,URINE 0-3 /HPF (0-3)
== END 2021-02-11 10:01 | disposition home or self-care (01) ==
LOC: LAB 10:00
PROVIDERS: ATTEND Physician Assistant Medical
DX: R73.9 Hyperglycemia, unspecified (principal); R94.5 Abnormal results of liver function studies; Z13.9 Encounter for screening, unspecified; M81.0 Age-related osteoporosis without current pathological fracture; D64.9 Anemia, unspecified; R30.0 Dysuria; E78.5 Hyperlipidemia, unspecified; I10 Essential (primary) hypertension
CPT/HCPCS: 36415; 80053; 80061; 81001; 83721; 84443; 85025; 87086

== ENCOUNTER 2021-03-03 09:56 | Outpatient (CLI) | payer MEDICARE, OTHER ==
--- NOTE | 2021-03-03 12:28 | DEXA Report ---
PROCEDURE: Dexa Spine and/or Hip INDICATIONS: OSTEOPOROSIS TECHNIQUE: Dual energy x-ray absorptiometry (DXA) was performed on a [employer] System. Regions measur ed are the AP Spine, femoral neck, and if needed forearm. COMPARISON: None. FINDINGS: Lumbar Spine: Bone Mineral Density 1.322 g/cm/cm,T score 0.7, normal Right Hip: Bone Mineral Density 0.725 g/cm/cm,T score -2.6, osteoporotic Right Femoral Neck: Bone Mineral Density 0.657 g/cm/cm, T score -3.2, osteoporotic Left forearm: obtained because of no 2 consecutive vertebrae for spine higher than indicated by hip. Bone Mineral Density 71 g/cm/cm, T score -2.9, osteoporotic (T score greater or equal to -1.0: NORMAL) (T score from -1.1 to -2.4: OSTEOPENIA) (T score less than or equal to -2.5 to: OSTEOPOROSIS) Impression: Based on WHO criteria, the patient is osteoporotic. Compared with the last exam dated 10/2018, the patient's bone mineral density of the lumbar spine is not statistical significantly unch anged. Patient's bone mineral density of the right hip is increased 5.1%. Patients with diagnosis of osteoporosis or osteopenia should have regular bone mineral density assess ment. For those eligible for Medicare, routine testing is allowed once every 2 years. Testing frequ ency can be increased for patients who have rapidly progressing disease or for those who are receivin g medical therapy to restore bone mass. Reviewed by: Daniel Mas MD on 03/03/2021 12:27 PM PDT Approved by: Daniel Mas MD on 03/03/2021 12:27 PM PDT Station ID: [id number]
== END 2021-03-03 09:57 | disposition home or self-care (01) ==
LOC: DI 09:56
PROVIDERS: ATTEND Physician Assistant Medical
DX: M81.0 Age-related osteoporosis without current pathological fracture (principal)

== ENCOUNTER 2021-06-05 14:10 | Outpatient (CLI) | payer MEDICARE, OTHER | END 2021-06-05 14:11 | disposition home or self-care (01) | LOC: COV 14:10 | PROVIDERS: ATTEND Family Medicine | DX: Z20.822 Contact with and (suspected) exposure to COVID-19 (principal) ==

== ENCOUNTER 2021-06-20 08:39 | Outpatient (CLI) | payer MEDICARE, OTHER ==
[2021-06-20 11:50] LABS: BASOPHILS # (AUTO) 0.1 10^3/uL (0.0-0.1); BASOPHILS % (AUTO) 0.6 %; EOSINOPHILS # (AUTO) 0.2 10^3/uL (0.0-0.7); EOSINOPHILS % (AUTO) 2.8 %; HCT - HEMATOCRIT 44.2 % (42.0-52.0); HGB - HEMOGLOBIN 14.4 g/dL (14.0-18.0); LYMPHOCYTES # (AUTO) 3.4 10^3/uL (1.5-3.5); LYMPHOCYTES % (AUTO) 38.9 %; MEAN CORPUSCULAR HGB CONC 32.6 g/dL (32.0-36.0); MEAN CORPUSCULAR VOLUME 104.2 fL (80.0-94.0); MEAN PLATELET VOLUME 11.3 fL (7.4-11.4); MONOCYTES # (AUTO) 0.6 10^3/uL (0.0-1.0); MONOCYTES % (AUTO) 6.6 %; NEUTROPHILS # (AUTO) 4.4 10^3/uL (1.5-6.6); NEUTROPHILS % (AUTO) 50.8 %; PLT - PLATELET COUNT 167 10^3/uL (130-450); RED BLOOD COUNT 4.24 10^6/uL (4.70-6.10); RED CELL DISTRIBUTION WIDTH 12.4 % (12.0-15.0); WHITE BLOOD COUNT 8.6 x10^3/uL (4.8-10.8)
[2021-06-20 12:01] LABS: INR 1.2 (0.8-1.2); PT - PROTHROMBIN TIME 13.7 secs (9.9-12.6)
[2021-06-20 12:11] LABS: BILIRUBIN,URINE NEGATIVE (NEGATIVE); GLUCOSE, URINE (UA) NEGATIVE (NEGATIVE); KETONES,URINE (UA) NEGATIVE (NEGATIVE); LEUKOCYTE ESTERASE, URINE TRACE (NEGATIVE); NITRITE,URINE NEGATIVE (NEGATIVE); OCCULT BLOOD,URINE TRACE-INTA (NEGATIVE); PH,URINE 5.5 PH (5.0-7.5); PROTEIN,URINE NEGATIVE (NEGATIVE); UROBILINOGEN,URINE 0.2 (NORMAL) E.U./dL (NORMAL)
[2021-06-20 12:18] LABS: CLARITY,URINE SL. CLOUDY (CLEAR)
[2021-06-20 12:19] LABS: BACTERIA,URINE Rare /HPF (None Seen); MUCUS,URINE Marked Strands; RBC,URINE 0-5 /HPF (0-5); SQUAMOUS EPITHELIAL CELL,UR FEW Squamous (<= Few); WBC,URINE 0-3 /HPF (0-3)
[2021-06-20 12:41] LABS: ALBUMIN/GLOBULIN RATIO 1.6 (1.0-2.2); BILIRUBIN,TOTAL 1.4 mg/dL (0.2-1.0); CREATININE 0.9 mg/dL (0.6-1.2); POTASSIUM 4.1 mmol/L (3.5-5.0); TOTAL PROTEIN 6.5 g/dL (6.7-8.2)
== END 2021-06-20 23:59 | disposition home or self-care (01) ==
LOC: LAB.WCP 08:39
PROVIDERS: ATTEND Physician Assistant Medical
DX: Z01.812 Encounter for preprocedural laboratory examination (principal); E78.5 Hyperlipidemia, unspecified; I10 Essential (primary) hypertension; N21.8 Other lower urinary tract calculus; D64.9 Anemia, unspecified
CPT/HCPCS: 36415; 80053; 81001; 82728; 83540; 84466; 85025; 85610

== ENCOUNTER 2021-08-01 12:08 | Outpatient (CLI) | payer MEDICARE, OTHER | END 2021-08-01 23:59 | disposition home or self-care (01) | LOC: LAB 12:08 | PROVIDERS: ATTEND Physician Assistant Medical | DX: J06.9 Acute upper respiratory infection, unspecified (principal); Z20.822 Contact with and (suspected) exposure to COVID-19 ==

== ENCOUNTER 2021-08-01 15:54 | Outpatient (CLI) | payer MEDICARE, OTHER ==
--- NOTE | 2021-08-02 10:37 | XRAY Report ---
PROCEDURE: Chest 2 View X-Ray INDICATIONS: URI TECHNIQUE: 2 view(s) of the chest. COMPARISON: Chest x-ray report, 10/21/2017. FINDINGS: Surgical changes and devices: None. Lungs and pleura: No pleural effusions or pneumothorax. Left basilar scars. Lungs are otherwise viviana ar. Mediastinum: Mediastinal contours are normal. Heart size is normal. Moderate-sized hiatal hernia. Bones and chest wall: No suspicious bony abnormalities. Old right fractures are noted. Soft tissues appear unremarkable. IMPRESSION: 1. No acute cardiopulmonary disease. 2. Moderate-sized hiatal hernia. Reviewed by: Daniel Mas MD on 08/02/2021 10:36 AM [facility] Approved by: Daniel Mas MD on 08/02/2021 10:36 AM [facility] Station ID: [id number]
== END 2021-08-01 15:55 | disposition home or self-care (01) ==
LOC: DI 15:54
PROVIDERS: ATTEND Physician Assistant Medical
DX: J06.9 Acute upper respiratory infection, unspecified (principal); K44.9 Diaphragmatic hernia without obstruction or gangrene; Z20.822 Contact with and (suspected) exposure to COVID-19
CPT/HCPCS: 71046; U0004

== ENCOUNTER 2021-08-11 09:44 | Outpatient (CLI) | payer MEDICARE, OTHER ==
[2021-08-11 10:08] LABS: BASOPHILS # (AUTO) 0.1 10^3/uL (0.0-0.1); BASOPHILS % (AUTO) 0.8 %; EOSINOPHILS # (AUTO) 0.3 10^3/uL (0.0-0.7); HCT - HEMATOCRIT 44.9 % (42.0-52.0); HGB - HEMOGLOBIN 14.8 g/dL (14.0-18.0); LYMPHOCYTES # (AUTO) 3.5 10^3/uL (1.5-3.5); LYMPHOCYTES % (AUTO) 39.5 %; MEAN CORPUSCULAR VOLUME 103.2 fL (80.0-94.0); MEAN PLATELET VOLUME 10.7 fL (7.4-11.4); MONOCYTES # (AUTO) 0.5 10^3/uL (0.0-1.0); MONOCYTES % (AUTO) 5.9 %; NEUTROPHILS # (AUTO) 4.5 10^3/uL (1.5-6.6); NEUTROPHILS % (AUTO) 50.6 %; PLT - PLATELET COUNT 188 10^3/uL (130-450); RED BLOOD COUNT 4.35 10^6/uL (4.70-6.10); RED CELL DISTRIBUTION WIDTH 12.3 % (12.0-15.0); WHITE BLOOD COUNT 8.9 x10^3/uL (4.8-10.8)
[2021-08-11 10:33] LABS: ALBUMIN 3.8 g/dL (3.2-5.5); ALBUMIN/GLOBULIN RATIO 1.4 (1.0-2.2); ALKALINE PHOSPHATASE 77 IU/L (42-121); ALT ALANINE AMINOTRANSFERASE 68 IU/L (10-60); AST ASPARTATE AMINOTRANSFERASE 50 IU/L (10-42); BILIRUBIN,TOTAL 1.6 mg/dL (0.2-1.0); BUN - BLOOD UREA NITROGEN 21 mg/dL (6-20); CALCIUM 9.1 mg/dL (8.5-10.3); CARBON DIOXIDE - CO2 26 mmol/L (21-32); CHLORIDE 105 mmol/L (101-111); CHOL/HDL RATIO 2.1 (<5.0); CHOLESTEROL 102 mg/dL; CREATININE 0.9 mg/dL (0.6-1.2); GFR - MDRD 81 (>89); GLUCOSE 109 mg/dL (70-100); HDL CHOLESTEROL 48 mg/dL; LDL CHOLESTEROL,CALCULATED 42 mg/dL; LDL/HDL RATIO 0.9 (<3.6); POTASSIUM 4.2 mmol/L (3.5-5.0); SODIUM 141 mmol/L (135-145); TOTAL PROTEIN 6.5 g/dL (6.7-8.2); TRIGLYCERIDES 61 mg/dL; VLDL CHOLESTEROL 12 mg/dL
== END 2021-08-11 09:45 | disposition home or self-care (01) ==
LOC: LAB 09:44
PROVIDERS: ATTEND Physician Assistant Medical
DX: D64.9 Anemia, unspecified (principal); E78.5 Hyperlipidemia, unspecified
CPT/HCPCS: 36415; 80053; 80061; 83721; 85025

== ENCOUNTER 2021-09-27 10:57 | Outpatient (CLI) | payer MEDICARE, OTHER ==
[2021-09-27 10:50] LABS: BASOPHILS # (AUTO) 0.1 10^3/uL (0.0-0.1); EOSINOPHILS # (AUTO) 0.7 10^3/uL (0.0-0.7); EOSINOPHILS % (AUTO) 6.9 %; HCT - HEMATOCRIT 45.4 % (42.0-52.0); HGB - HEMOGLOBIN 14.9 g/dL (14.0-18.0); LYMPHOCYTES # (AUTO) 3.2 10^3/uL (1.5-3.5); LYMPHOCYTES % (AUTO) 32.1 %; MEAN CORPUSCULAR HGB CONC 32.8 g/dL (32.0-36.0); MEAN CORPUSCULAR VOLUME 103.7 fL (80.0-94.0); MEAN PLATELET VOLUME 10.4 fL (7.4-11.4); MONOCYTES # (AUTO) 0.7 10^3/uL (0.0-1.0); MONOCYTES % (AUTO) 6.5 %; NEUTROPHILS # (AUTO) 5.4 10^3/uL (1.5-6.6); NEUTROPHILS % (AUTO) 53.1 %; PLT - PLATELET COUNT 197 10^3/uL (130-450); RED BLOOD COUNT 4.38 10^6/uL (4.70-6.10); RED CELL DISTRIBUTION WIDTH 12.8 % (12.0-15.0); WHITE BLOOD COUNT 10.1 x10^3/uL (4.8-10.8)
[2021-09-27 11:11] LABS: ALBUMIN 3.7 g/dL (3.2-5.5); ALBUMIN/GLOBULIN RATIO 1.2 (1.0-2.2); ALKALINE PHOSPHATASE 142 IU/L (42-121); ALT ALANINE AMINOTRANSFERASE 70 IU/L (10-60); AST ASPARTATE AMINOTRANSFERASE 54 IU/L (10-42); BILIRUBIN,TOTAL 1.3 mg/dL (0.2-1.0); BUN - BLOOD UREA NITROGEN 18 mg/dL (6-20); CALCIUM 9.1 mg/dL (8.5-10.3); CARBON DIOXIDE - CO2 27 mmol/L (21-32); CHLORIDE 100 mmol/L (101-111); CHOL/HDL RATIO 2.5 (<5.0); CHOLESTEROL 114 mg/dL; CREATININE 0.9 mg/dL (0.6-1.2); GFR - MDRD 81 (>89); GLUCOSE 112 mg/dL (70-100); HDL CHOLESTEROL 46 mg/dL; LDL CHOLESTEROL,CALCULATED 56 mg/dL; LDL/HDL RATIO 1.2 (<3.6); POTASSIUM 4.1 mmol/L (3.5-5.0); SODIUM 138 mmol/L (135-145); TOTAL PROTEIN 6.9 g/dL (6.7-8.2); TRIGLYCERIDES 59 mg/dL; VLDL CHOLESTEROL 12 mg/dL
[2021-09-27] MEDS ORDERED: iohexoL-300 100 ML VIAL ONE (11:12)
[2021-09-27] MEDS ORDERED: IOPAMIDOL-300 50 ML VIAL ONE (11:12)
--- NOTE | 2021-09-27 15:58 | CT Report ---
PROCEDURE: Abdomen/Pelvis W INDICATIONS: ESOPHAGEAL CA CONTRAST: IV CONTRAST: Optiray 320 ml: 100 PO CONTRAST: Isovue 300 ml50 TECHNIQUE: After the administration of oral and intravenous contrast, 5 mm thick sections acquired from the diap hragms to the symphysis. 5 mm thick coronal and sagittal reformats were acquired. For radiation dos e reduction, the following was used: automated exposure control, adjustment of mA and/or kV accordin g to patient size. COMPARISON: Chest CT from today, CT abdomen and pelvis dated 08/28/2020. FINDINGS: Image quality: Excellent. ABDOMEN: Lung bases: Lung bases are clear. Mild scarring, right lung base. Mild cardiomegaly, with enlargemen t of the left atrium, right ventricle, and right atrium. There is dense LAD atherosclerotic calcifica tion. Evidence of gastric pull-through surgery. Solid organs: Liver and spleen are normal in size and enhancement. Gallbladder is surgically absent Biliary system is non dilated. Pancreas enhances normally. No adrenal nodules. Kidneys demonstra te normal size and enhancement, without hydronephrosis. Peritoneum and bowel: Bowel loops demonstrate normal wall thickness and caliber. No free fluid or a ir. Incidental note is made of the presence of interposition of colon in front of the liver. Nodes and vessels: No retroperitoneal or mesenteric adenopathy by size criteria. Aorta and inferior vena cava are normal in size. Miscellaneous: No ventral hernias. PELVIS: Genitourinary: Bladder wall thickness is normal. Miscellaneous: No inguinal hernias or adenopathy. Bones: No suspicious bony lesions. No acute vertebral body compression fractures. Comparison with t he chest CT demonstrates that there have been treated compressions of L1, T7, T5, and T4. No acute co mpression fractures. No lytic or blastic bony lesions. Bilateral L5 pars defects with mild anterolist hesis of L5 on S1. Bilateral total hip arthroplasties. IMPRESSION: 1. No evidence of metastatic disease in the abdomen and pelvis. 2. Remote gastric pull-through surgery. 3. Osteoporosis with numerous previously treated compression fractures with percutaneous cement. Reviewed by: Gregory Robertson MD on 09/27/2021 3:56 PM PST Approved by: Gregory Robertson MD on 09/27/2021 3:56 PM PST Station ID: [id number]
--- NOTE | 2021-09-27 16:04 | CT Report ---
PROCEDURE: CHEST W INDICATIONS: ESOPHAGEAL CA CONTRAST: IV CONTRAST: Optiray 320 ml: 100 PO CONTRAST: Isovue 300 ml50 TECHNIQUE: After the administration of intravenous contrast, 1 mm axial images were acquired from the pulmonary apices through the posterior costophrenic angles. Axial 5 mm soft tissue kernel reconstructions were performed as well as 8 mm axial MIP and coronal and sagittal 5 mm reformations. For radiation dose reduction, the following was used: automated exposure control, adjustment of mA and/or kV according to patient size. COMPARISON: CT abdomen and pelvis from today, CT chest dated 11/27/2017, CT angiogram of the chest da arina 12/12/2017 FINDINGS: Image quality: Excellent. Lower neck: There is a new infiltrative mass predominantly posterior to the right lobe of the thyroid which encases vascular structures and indents on the lower cervical esophagus, immediately above the gastric pull-through superior clips. It measures 4.0 x 4.1 cm. It was not present on previous CT ch est studies. Lungs and pleura: No acute air space opacities. Mild right basilar scarring. No pleural effusions o r pneumothorax. Central and peripheral airways are patent and normal in caliber. Mediastinum: Heart size is normal. No pericardial effusion. No mediastinal or hilar adenopathy by size criteria. Thoracic aorta and central pulmonary arteries are normal in size. Esophagus is kenzie l in caliber. No hiatal hernia. Bones and chest wall: No suspicious bony lesions. Osteoporosis with numerous chronic compression fra ctures which have been previously treated by cement, involving L1, T7, T5, and T4. No acute compressi on fractures. No axillary or supraclavicular adenopathy by size criteria. Abdomen: Visualized upper abdominal solid organs appear normal. Upper abdominal bowel loops are nor mal in caliber. IMPRESSION: 1. There is metastatic or locally recurrent malignancy involving the lower right neck just superior t o the surgical clips, encasing vascular structures and deviating the cervical esophagus to the right. It measures approximately 4 cm in diameter. 2. Severe osteoporosis with numerous previous treated compressions. 3. No other evidence of metastatic disease in the chest. CLINICAL RECOMMENDATION STATEMENTS: In patients <35 years with an ITN detected on CT, MRI, or extrathyroidal ultrasound, the Committee re commends further evaluation with dedicated thyroid ultrasound if the nodule is "e1 cm and has no susp icious imaging features, and if the patient has normal life expectancy. In patients "e35 years with an ITN detected on CT, MRI, or extrathyroidal ultrasound, the Committee r ecommends further evaluation with dedicated thyroid ultrasound if the nodule is "e1.5 cm and has no s uspicious imaging features, and if the patient has normal life expectancy. (ACR, 2014) Reviewed by: Gregory Robertson MD on 09/27/2021 4:03 PM PST Approved by: Gregory Robertson MD on 09/27/2021 4:03 PM PST Station ID: [id number]
[2021-09-27] MEDS ORDERED: iohexoL-300 100 ML VIAL IVP ONE (19:49)
== END 2021-09-27 10:58 | disposition home or self-care (01) ==
LOC: DI 10:57
PROVIDERS: ATTEND Surgery
DX: Z85.01 Personal history of malignant neoplasm of esophagus (principal); M81.0 Age-related osteoporosis without current pathological fracture; M48.56XD Collapsed vertebra, not elsewhere classified, lumbar region, subsequent encounter for fracture with routine healing; M48.54XD Collapsed vertebra, not elsewhere classified, thoracic region, subsequent encounter for fracture with routine healing; R93.89 Abnormal findings on diagnostic imaging of other specified body structures; E78.5 Hyperlipidemia, unspecified; D64.9 Anemia, unspecified
CPT/HCPCS: 36415; 71260; 74177; 80053; 80061; 85025; Q9967; 83721

== ENCOUNTER 2021-11-16 15:15 | Outpatient (CLI) | payer MEDICARE, OTHER ==
[2021-11-16 15:23] LABS: LEUKOCYTE ESTERASE, URINE TRACE (NEGATIVE)
[2021-11-16 15:40] LABS: CLARITY,URINE HAZY (CLEAR)
[2021-11-16 15:42] LABS: RBC,URINE TNTC /HPF (0-5); SQUAMOUS EPITHELIAL CELL,UR NONE SEEN (<= Few); WBC,URINE 0-3 /HPF (0-3)
[2021-11-16 15:43] LABS: BACTERIA,URINE Rare /HPF (None Seen)
== END 2021-11-16 15:16 | disposition home or self-care (01) ==
LOC: LAB 15:15
PROVIDERS: ATTEND Physician Assistant Medical
DX: Z91.89 Other specified personal risk factors, not elsewhere classified (principal)
CPT/HCPCS: 81001; 87086

== ENCOUNTER 2021-11-17 20:10 | Outpatient (CLI) | payer MEDICARE, OTHER | END 2021-11-17 20:11 | disposition critical access hospital (66) | LOC: EMS 20:10 | DX: R30.9 Painful micturition, unspecified (principal); R11.10 Vomiting, unspecified; R19.7 Diarrhea, unspecified | CPT/HCPCS: A0425; A0429 ==

== ENCOUNTER 2021-11-17 20:16 | Emergency (ER) | payer MEDICARE, OTHER ==
[2021-11-17 20:44] LABS: BASOPHILS # (AUTO) 0.1 10^3/uL (0.0-0.1); BASOPHILS % (AUTO) 0.5 %; EOSINOPHILS # (AUTO) 0.1 10^3/uL (0.0-0.7); EOSINOPHILS % (AUTO) 0.7 %; HCT - HEMATOCRIT 36.8 % (42.0-52.0); HGB - HEMOGLOBIN 12.8 g/dL (14.0-18.0); LYMPHOCYTES # (AUTO) 2.1 10^3/uL (1.5-3.5); LYMPHOCYTES % (AUTO) 18.7 %; MEAN CORPUSCULAR HEMOGLOBIN 34.4 pg (27.0-31.0); MEAN CORPUSCULAR HGB CONC 34.8 g/dL (32.0-36.0); MEAN CORPUSCULAR VOLUME 98.9 fL (80.0-94.0); MEAN PLATELET VOLUME 9.9 fL (7.4-11.4); MONOCYTES % (AUTO) 9.3 %; NEUTROPHILS # (AUTO) 7.6 10^3/uL (1.5-6.6); NEUTROPHILS % (AUTO) 68.3 %; PLT - PLATELET COUNT 155 10^3/uL (130-450); RED BLOOD COUNT 3.72 10^6/uL (4.70-6.10); WHITE BLOOD COUNT 11.1 x10^3/uL (4.8-10.8)
[2021-11-17] MEDS ORDERED: PROCHLORPERAZINE 10 MG/2 ML VIAL IVP STA (20:51)
[2021-11-17 21:01] LABS: ALBUMIN 3.5 g/dL (3.2-5.5); ALBUMIN/GLOBULIN RATIO 1.3 (1.0-2.2); BILIRUBIN,TOTAL 2.3 mg/dL (0.2-1.0); CALCIUM 8.8 mg/dL (8.5-10.3); CREATININE 0.6 mg/dL (0.6-1.2); MAGNESIUM 1.9 mg/dL (1.7-2.8); POTASSIUM 3.7 mmol/L (3.5-5.0); TOTAL PROTEIN 6.2 g/dL (6.7-8.2)
--- NOTE | 2021-11-17 21:15 | ED Physician Documentation ---
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 3 days ago started with drak/cloudy/painful urination. Started macrobid and pyridium 2 days and then developed N/V/D, progessive weakness now. Review of Systems Constitutional: reports: Fatigue. denies: Fever, Chills Nose: denies: Rhinorrhea / runny nose, Congestion Cardiac: denies: Chest pain / pressure, Palpitations Respiratory: denies: Dyspnea, Cough GI: reports: Nausea, Vomiting, Diarrhea. denies: Abdominal Pain PD PAST MEDICAL HISTORY - Past Medical History Past Medical History: Yes Cardiovascular: Hypertension, High cholesterol, Coronary artery disease, Atrial fibrillation, Arrhythmia Respiratory: Pneumonia, Other Neuro: None Endocrine/Autoimmune: Other GI: GERD, Chronic diarrhea, Diverticulitis [employer]: None : Benign prostate hypertrophy, Nocturia HEENT: Chronic vision loss Psych: Depression Musculoskeletal: Osteoarthritis, Fatigue, Chronic back pain, Other Derm: None - Past Surgical History Past Surgical History: Yes General: Cholecystectomy, Gastric surgery, EGD, Other Ortho: Arthroscopic surgery Cardiovascular: Other Derm: Skin cancer surgery, Other - Present Medications Home Medications: Ambulatory Orders Medication Instructions Recorded Confirmed Metoprolol Tartrate [Lopressor] 12.5 mg PO BID #14 tablet 12/12/17 11/17/21 Rivaroxaban [Xarelto] 20 mg PO DAILY 12/12/17 11/17/21 Omeprazole 20 mg PO DAILY 04/20/19 11/17/21 Acetaminophen 1,000 mg PO DAILY 04/21/19 11/17/21 Atorvastatin [Lipitor] 40 mg PO QPM #10 tablet 04/22/19 11/17/21 Cholecalciferol (Vitamin D3) 2,000 unit PO DAILY 06/05/19 11/17/21 [Vitamin D] Multivitamin [Multivitamins] 1 each PO DAILY 06/05/19 11/17/21 Ciprofloxacin HCl [Cipro] 500 mg PO BID #14 tablet 11/17/21 Promethazine [Phenergan] 25 mg PO Q6H PRN #20 tab 11/17/21 - Allergies Allergies/Adverse Reactions: Allergies Allergy/AdvReac Type Severity Reaction Status Date / Time morphine AdvReac Hallucinati Verified 11/17/21 20:27 ons - Social History Does the pt smoke?: No Smoking Status: Never smoker Does the pt drink ETOH?: Yes Does the pt have substance abuse?: No - Immunizations Immunizations are current?: Yes - POLST Patient has POLST: No POLST Status: Full Code PD ED PE NORMAL - Vitals Vital signs reviewed: Yes - General General: Alert and oriented X 3, No acute distress, Other (Sl somnolent) - Neck Neck: Supple, no meningeal sign, No bony TTP - Cardiac Cardiac: RRR, No murmur - Respiratory Respiratory: No respiratory distress, Clear bilaterally - Abdomen Abdomen: Soft, Non tender - Back Back: No CVA TTP - Derm Derm: Normal color, Warm and dry - Neuro Neuro: Alert and oriented X 3, No motor deficit, No sensory deficit, Normal speech Eye Opening: To Voice Motor: Obeys Commands Verbal: Oriented GCS Score: 14 Results - Vitals Vitals: Vital Signs - 24 hr 11/17/21 11/17/21 20:23 21:00 Temperature 36.8 C Heart Rate 109 H 96 Respiratory 18 18 Rate Blood Pressure 153/140 H 122/84 H O2 Saturation 96 98 Oxygen O2 Source Room air - Labs Labs: Laboratory Tests 11/17/21 11/17/21 20:41 20:41 WBC 11.1 H RBC 3.72 L Hgb 12.8 L Hct 36.8 L MCV 98.9 H MCH 34.4 H MCHC 34.8 RDW 14.0 Plt Count 155 MPV 9.9 Neut # (Auto) 7.6 H Lymph # (Auto) 2.1 [place] # (Auto) 1.0 Eos # (Auto) 0.1 Baso # (Auto) 0.1 Absolute Nucleated RBC 0.00 Nucleated RBC % 0.0 Sodium 132 L Potassium 3.7 Chloride 95 L Carbon Dioxide 26 Anion Gap 11.0 BUN 20 Creatinine 0.6 Estimated GFR (MDRD) 129 Glucose 121 H Calcium 8.8 Magnesium 1.9 Total Bilirubin 2.3 H AST 85 H ALT 47 Alkaline Phosphatase 242 H Total Protein 6.2 L Albumin 3.5 Globulin 2.7 Albumin/Globulin Ratio 1.3 Lipase 25 PD MEDICAL DECISION MAKING - ED course ED course: 81-year-old gentleman with metastatic esophageal cancer presents with concerns for UTI and generalized weakness and feeling dehydrated. They are planning to enroll in hospice on Saturday but would like symptom control and would like antibiotics for now as they would like him not to pass away until hospice has been started. He very much wants to go home and could not produce a urine sample here. Departure - Departure Disposition: Home, Self Care Clinical Impression: UTI (urinary tract infection), Metastatic cancer Condition: Good Record reviewed to determine appropriate education?: Yes Instructions: Hospice Start Prescriptions: Ciprofloxacin HCl [Cipro] 500 mg PO BID #14 tablet Promethazine [Phenergan] 25 mg PO Q6H PRN #20 tab PRN Reason: Nausea / Vomiting Comments: I sent prescription electronically to [email or web address] in [place]. Return as needed for symptom control or any other new concerns, otherwise, as discussed your plan is to start hospice on Saturday. Besides antibiotics I sent prescriptions for nausea to the pharmacy.
[2021-11-17] MEDS ORDERED: SODIUM CHLORIDE 0.9% 1,000 ML IV STA (21:17)
[2021-11-17] MEDS ORDERED: cefTRIAXone 1 GM in SODIUM CHLORIDE 0.9% MINIBAG 100 ML IV STA (21:27)
[2021-11-17] MEDS ORDERED: cefTRIAXone 1 GM VIAL ONE (21:39)
[2021-11-17 22:46] VITALS: BP 133/86
[2021-11-17 22:51] LABS: BILIRUBIN,URINE NEGATIVE (NEGATIVE); GLUCOSE, URINE (UA) NEGATIVE (NEGATIVE); LEUKOCYTE ESTERASE, URINE NEGATIVE (NEGATIVE)
[2021-11-17 22:54] LABS: CLARITY,URINE CLEAR (CLEAR)
[2021-11-17 23:00] LABS: BACTERIA,URINE None Seen /HPF (None Seen); SQUAMOUS EPITHELIAL CELL,UR RARE Squamous (<= Few); WBC,URINE 0-3 /HPF (0-3)
== END 2021-11-17 22:40 | disposition home or self-care (01) ==
LOC: EDUNIT# → ED 20:16
DX: N39.0 Urinary tract infection, site not specified (principal); C15.9 Malignant neoplasm of esophagus, unspecified; C79.51 Secondary malignant neoplasm of bone
CPT/HCPCS: 36415; 80053; 81001; 81003; 83690; 83735; 85025; 87086; 96365; 96375; 99281